=== PATIENT | male | born 1985 | race Caucasian/White ===

== ENCOUNTER 2022-03-28 10:49 | Emergency (ER) | payer MEDICAID, SELFPAY ==
[2022-03-28 11:08] VITALS: BP 213/104; PULSE 63; RESP 14; O2SAT 100; BMI 27.1
[2022-03-28] MEDS: lidocaine 2% viscous 15 ML, aluminum-mag hydrox-simethicon 30 ML, sucralfate oral liq 1 GM PO (11:27)
[2022-03-28 11:28] LABS: Basophils % 0.2 %; Eosinophils % 0.2 %; Hematocrit 43.2 % (42.0-52.0); Hemoglobin 13.2 g/dL (11.7-16.6); Lymphocytes # 0.7 10^3/uL (0.8-4.8); Mean Corpuscular HGB Conc 30.6 g/dL (30.0-36.0); Mean Corpuscular Hemoglobin 21.5 pg (28.0-34.0); Mean Corpuscular Volume 70.2 fl (80-94); Mean Platelet Volume 10.1 fL (7.4-10.4); Monocytes # 0.5 10^3/uL (0.2-0.9); Monocytes % 4.5 %; Neutrophils # 9.06 10^3/uL (1.8-7.7); Neutrophils % 87.2 %; Nucleated Red Blood Cells % 0 %; Platelet Count 380 10^3/cmm (130-400); Red Blood Count 6.15 10^6/uL (4.1-5.3); Red Cell Distribution Width 16.8 % (12.1-15.1); White Blood Count 10.4 10^3/uL (4.0-10.0)
[2022-03-28] MEDS: sodium chloride 0.9% 1,000 ML 999 ML IV ×2 (11:43→12:41)
[2022-03-28] MEDS: haloperidol inj 5 mg/mL INJ 1 mL 2.5 MG IVP (11:44)
[2022-03-28 11:45] LABS: Lactate (Lactic Acid level) 2.3 mmol/L (0.5-2.2)
[2022-03-28 11:46] LABS: Albumin Level 5.3 g/dL (3.5-5.2); Alkaline Phosphatase 102 IU/L (40-130); Blood Urea Nitrogen 16 mg/dL (6-20); Calcium 10.9 mg/dL (8.5-10.5); Carbon Dioxide 23 mmol/L (22-29); Chloride 100 mmol/L (98-107); Creatinine Clr Calc Pharmacy 119.6682; Globulin 2.9 g/dL (1.3-4.6); Glomerular Filtration Rate 84.5 mL/min (90-130); Glucose 145 mg/dL (65-115); Lipase 14 U/L (13-60); Osmolality Calculated 288 mOsm/kg (285-295); Sodium 137 mmol/L (136-145); Total Bilirubin 0.4 mg/dL (0.15-1.2); Total Protein 8.2 g/dL (6.6-8.7)
[2022-03-28] MEDS: LORazepam 2 mg/mL INJ 1 mL IVP (11:47)
[2022-03-28 11:54] LABS: Alanine Aminotransferase 34 U/L (0-41); Anion Gap 19.4 (5-19); Aspartate Amino Transferase 34 U/L (0-40); Potassium 5.4 mmol/L (3.5-5.1)
[2022-03-28 12:05] VITALS: BP 172/93; PULSE 69; RESP 18; O2SAT 97
--- NOTE | 2022-03-28 12:08 | W.ED.ABDPA2 ---
HPI - Abdominal Pain General: Chief Complaint: Abdominal Pain Stated Complaint: Severe ABD Pains Time Seen by Provider: 03/28/22 11:15 Source: patient Mode of arrival: ambulatory Limitations: no limitations History of Present Illness: 37-year-old male presents emergency room complaining of epigastric and right left upper quadrant abdominal pain (in the nurses notes this is right he indicated left to me). He states he has had this for a number of years intermittently and seems more intense now he smokes marijuana heavily on a daily basis also drinks 6-12 beers per day. He denies drinking last evening. He has had hematochezia multiple times in the past but none recently has not had an evaluation for it. He denies any hematemesis or coffee-ground emesis no fever sweats or chills. He has been very nauseous and vomited multiple times. MD elicited complaint: abdominal pain Onset (ago): year(s) (Recent worsening) Pain Consistency: intermittent Location: Epigastric and LUQ Severity: moderate Quality: cramping Radiation: none Migration to: no migration Exacerbating factors: eating Relieving factors: nothing Associated Symptoms: Reports GI cramping, dyspepsia, loose stools, nausea, poor appetite and vomiting; Denies belching, bloating, change in bowel habits, change in stool character, chills, coffee ground emesis, constipation, diarrhea, dysuria, excessive flatus, fever(s), heartburn, hematochezia, hematuria, hematemesis, fecal incontinence, melena and syncope Review of Systems Const: Denies: fever(s) or chills ENMT: Denies: throat pain, ear or mastoid pain, nasal discharge or nasal congestion Card: Denies: chest pain or syncope Resp: Denies: dyspnea, productive cough or non-productive cough GI: Reports: abdominal pain, nausea, vomiting and GI cramping; Denies: hematemesis, coffee ground emesis, heartburn, diarrhea, constipation, bloating, belching, excessive flatus, fecal incontinence, change in bowel habits, change in stool character, hematochezia or melena : Denies: flank pain, difficulty urinating, dysuria, urinary frequency, urinary urgency or hematuria Skin/Breast: Denies: rash or pruritus Course Vital Signs: Vital signs: Vital Signs Pulse Rate 78 03/28/22 13:41 Respiratory Rate 18 03/28/22 13:41 Blood Pressure 170/89 03/28/22 13:41 Pulse Oximetry 99 03/28/22 13:41 MDM - Abdominal Pain Medical Decision Making Patient responded well to fluids Haldol and Ativan his nausea was markedly relieved. Discharge patient home discussed with him different things that can influence this including a regular use of marijuana over long periods of time as well as high-volume alcohol consumption. Encourage him to abstain discharged home with promethazine to use as needed and can add Ativan if promethazine is not improving things. Medical Records I reviewed the patient's medical records. Lab Data I reviewed the patient's lab results. : 03/28/22 11:22 03/28/22 11:22 Labs/Radiology: Laboratory Results WBC 10.4 10^3/uL (4.0-10.0) H 03/28/22 11:22 RBC 6.15 10^6/uL (4.1-5.3) H 03/28/22 11:22 Hgb 13.2 g/dL (11.7-16.6) 03/28/22 11:22 Hct 43.2 % (42.0-52.0) 03/28/22 11:22 MCV 70.2 fl (80-94) L 03/28/22 11:22 MCH 21.5 pg (28.0-34.0) L 03/28/22 11:22 MCHC 30.6 g/dL (30.0-36.0) 03/28/22 11:22 RDW 16.8 % (12.1-15.1) H 03/28/22 11:22 Plt Count 380 10^3/cmm (130-400) 03/28/22 11:22 MPV 10.1 fL (7.4-10.4) 03/28/22 11:22 Neut % (Auto) 87.2 % 03/28/22 11:22 Lymph % (Auto) 7.0 % 03/28/22 11:22 [place] % (Auto) 4.5 % 03/28/22 11:22 Eos % (Auto) 0.2 % 03/28/22 11:22 Baso % (Auto) 0.2 % 03/28/22 11:22 Neut # (Auto) 9.06 10^3/uL (1.8-7.7) H 03/28/22 11:22 Lymph # (Auto) 0.7 10^3/uL (0.8-4.8) L 03/28/22 11:22 [place]rick # (Auto) 0.5 10^3/uL (0.2-0.9) 03/28/22 11:22 Eos # (Auto) 0.0 10^3/uL (0.0-0.8) 03/28/22 11:22 Baso # (Auto) 0.0 10^3/uL (0.0-0.1) 03/28/22 11:22 Nucleated RBC % (auto) 0 % 03/28/22 11:22 Nucleated RBCs # 0.0 /100WBC 03/28/22 11:22 Sodium 137 mmol/L (136-145) 03/28/22 11:22 Potassium 5.4 mmol/L (3.5-5.1) H 03/28/22 11:22 Chloride 100 mmol/L (98-107) 03/28/22 11:22 Carbon Dioxide 23 mmol/L (22-29) 03/28/22 11:22 Anion Gap 19.4 (5-19) H 03/28/22 11:22 BUN 16 mg/dL (6-20) 03/28/22 11:22 Creatinine 1.0 mg/dL (0.7-1.2) 03/28/22 11:22 GFR Calculation 84.5 mL/min (90-130) L 03/28/22 11:22 Glucose 145 mg/dL (65-115) H 03/28/22 11:22 Calculated Osmolality 288 mOsm/kg (285-295) 03/28/22 11:22 Lactate 2.3 mmol/L (0.5-2.2) H 03/28/22 11:22 Calcium 10.9 mg/dL (8.5-10.5) H 03/28/22 11:22 Total Bilirubin 0.4 mg/dL (0.15-1.2) 03/28/22 11:22 AST 34 U/L (0-40) 03/28/22 11:22 ALT 34 U/L (0-41) 03/28/22 11:22 Alkaline Phosphatase 102 IU/L (40-130) 03/28/22 11:22 Total Protein 8.2 g/dL (6.6-8.7) 03/28/22 11:22 Albumin 5.3 g/dL (3.5-5.2) H 03/28/22 11:22 Globulin 2.9 g/dL (1.3-4.6) 03/28/22 11:22 Lipase 14 U/L (13-60) 03/28/22 11:22 Discharge Plan Discharge Patient Disposition: Home Clinical Impression: Dyspepsia, Cannabinoid hyperemesis syndrome Condition: Stable Prescriptions: New Protonix 40 mg tablet,delayed release (DR/EC) 40 mg PO DAILY Qty: 45 0RF Rx Instructions: 1 p.o. twice daily for 14 days then 1 p.o. daily promethazine 25 mg tablet 25 mg PO Q6H PRN (Reason: nausea and vomiting) Qty: 20 0RF Ativan 2 mg tablet 2 mg PO Q6H PRN (Reason: nausea and vomiting) Qty: 14 0RF Rx Instructions: Use if promethazine does not relieve symptoms Discharge Orders: Discharge ED (Routine); Ordered 03/28/22 Ordered By: Deniz Sanz Referrals: Tyshawn Beard, DO [Primary Care Provider] - Discharge Diet: Clear Liquid Discharge Activity: Increase activity as tolerated Patient Instructions: Opioid Safety Activity Restrictions/Additional Instructions: Clear liquid diet for 24 to 48 hours. Avoid alcohol and marijuana use. culture manager will call to set you up for an EGD. Pantoprazole twice daily for 14 days then once daily. Use promethazine for nausea and vomiting if that does not relieve symptoms after 1 or 2 doses then use Ativan. 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
[2022-03-28 13:41] VITALS: BP 170/89; PULSE 78; RESP 18; O2SAT 99
--- NOTE | 2022-03-30 11:54 | DCPLANNER ---
Addendum entered by Marva Graves 05/01/22 10:37: manager oncology was told that Patient is currently waiting for FA before scheduling an appointment. Patient is talking to FA counselors Original Note: manager oncology had message to schedule a follow up appointment for patient with general surgery. manager oncology sent patients information to the front office staff at general surgery. Patients information will be printed and reviewed. Clinic will call patient with appointment information.
== END 2022-03-28 13:38 | disposition home or self-care (01) ==
PROVIDERS: Emergency Medicine; Emergency Provider Family Medicine; PCP Electrodiagnostic Medicine
DX: R10.13 Epigastric pain (principal); R11.10 Vomiting, unspecified; F12.10 Cannabis abuse, uncomplicated
CPT/HCPCS: 80053; 83605; 83690; 85025; 96361; 96374; 96375; 99284; J1630; J2060; J7030

== ENCOUNTER 2022-08-14 15:14 | Emergency (ER) | payer MEDICAID, SELFPAY ==
[2022-08-14 15:23] VITALS: BP 145/81; PULSE 70; RESP 16; TEMP 36.8; O2SAT 99; BMI 24.4
--- NOTE | 2022-08-14 15:47 | XRR_ITS ---
PROCEDURE INFORMATION: Exam: XR Chest Exam date and time: 08/14/2022 4:09 PM Age: 37 years old Clinical indication: Pain; Angina pectoris; Additional info: Chest pain TECHNIQUE: Imaging protocol: Radiologic exam of the chest. Views: 1 view. COMPARISON: CR XR chest 1V [id number] 06/05/2016 8:37 PM FINDINGS: Lungs: Unremarkable. No consolidation. Pleural spaces: Unremarkable. No pleural effusion. No pneumothorax. Heart/Mediastinum: Unremarkable. No cardiomegaly. Bones/joints: Unremarkable. XR/XR chest 1V portable [id number] IMPRESSION: No acute findings.
--- NOTE | 2022-08-14 16:05 | PC.NURSE ---
pts states this morning pt woke up at baseline and went to take a shower and then roughly 20 minutes later pt became disoriented. reports was told by other family member that the house was messed up, tv and nightstand knocked out. reports pt has no memory of what happened. reports an unwitnessed fall today. pt c/o right sided headache. 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
--- NOTE | 2022-08-14 16:17 | CTR_ITS ---
PROCEDURE INFORMATION: Exam: CT Head Without Contrast Exam date and time: 08/14/2022 4:32 PM Age: 37 years old Clinical indication: Patient HX: Woke up this am disoriented, no recent trauma to head/neck; Additional info: YANCEY TECHNIQUE: Imaging protocol: Computed tomography of the head without contrast. Radiation optimization: All CT scans at this facility use at least one of these dose optimization techniques: automated exposure control; mA and/or kV adjustment per patient size (includes targeted exams where dose is matched to clinical indication); or iterative reconstruction. COMPARISON: No relevant prior studies available. RADIATION DOSE METRICS: Total DLP (mGy-cm): 1398 FINDINGS: Brain: Normal. No hemorrhage. Unremarkable white matter. No mass effect. Cerebral ventricles: No ventriculomegaly. Paranasal sinuses: Visualized sinuses are unremarkable. No fluid levels. Mastoid air cells: Visualized mastoid air cells are well aerated. Bones/joints: Unremarkable. No acute fracture. Soft tissues: Unremarkable. CT/CT head wo con* [id number] IMPRESSION: No acute intracranial abnormality.
--- NOTE | 2022-08-14 16:17 | CTR_ITS ---
PROCEDURE INFORMATION: Exam: CT Cervical Spine Without Contrast Exam date and time: 08/14/2022 4:32 PM Age: 37 years old Clinical indication: Prior surgery; Surgery date: 6+ months; Surgery type: Cervical fusion x15 yrs; Patient HX: Woke up this am disoriented, no recent trauma to head/neck; Additional info: Fall TECHNIQUE: Imaging protocol: Computed tomography of the cervical spine without contrast. Radiation optimization: All CT scans at this facility use at least one of these dose optimization techniques: automated exposure control; mA and/or kV adjustment per patient size (includes targeted exams where dose is matched to clinical indication); or iterative reconstruction. COMPARISON: CR XR chest 1V portable [id number] 08/14/2022 4:09 PM RADIATION DOSE METRICS: Total DLP (mGy-cm): 277.7 FINDINGS: Bones/joints: Anterior cervical discectomy and fusion changes seen in place at C4/5/6. C2-C3: No significant disc protrusion. No severe spinal canal stenosis. No significant neural foraminal narrowing. C3-C4: No significant disc protrusion. No severe spinal canal stenosis. No significant neural foraminal narrowing. C4-C5: No significant disc protrusion. No severe spinal canal stenosis. No significant neural foraminal narrowing. C5-C6: No significant disc protrusion. No severe spinal canal stenosis. No significant neural foraminal narrowing. C6-C7: No significant disc protrusion. No severe spinal canal stenosis. No significant neural foraminal narrowing. C7-T1: No significant disc protrusion. No severe spinal canal stenosis. No significant neural foraminal narrowing. Lungs: Lung apices are normal. Soft tissues: Unremarkable. CT/CT cervical spin wo con* [id number] IMPRESSION: Anterior cervical discectomy and fusion changes seen in place at C4/5/6.
--- NOTE | 2022-08-14 16:17 | ECG_ITS ---
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 Measurements Intervals [place] Rate: 64 P: 44 ND: 118 QRS: 57 QRSD: 98 T: 38 QT: 378 QTc: 391 Interpretive Statements SINUS RHYTHM WITH SHORT ND INTERVAL No previous ECG available for comparison Electronically Signed On 08-14-2022 16:19:44 CDT by Savi Francois M.D. [id number]
[2022-08-14 16:26] LABS: Ammonia 22 umol/L (16-60)
[2022-08-14 16:27] LABS: Lactate (Lactic Acid level) 1.8 mmol/L (0.5-2.2)
[2022-08-14 16:31] LABS: Alanine Aminotransferase 23 U/L (0-41); Albumin Level 4.7 g/dL (3.5-5.2); Alkaline Phosphatase 91 U/L (40-130); Aspartate Amino Transferase 22 U/L (0-40); Blood Urea Nitrogen 13 mg/dL (6-20); Calcium 9.5 mg/dL (8.5-10.5); Carbon Dioxide 24 mmol/L (22-29); Chloride 102 mmol/L (98-107); Glomerular Filtration Rate 84.5 mL/min (90-130); Glucose 126 mg/dL (65-115); Lipase 17 U/L (13-60); Osmolality Calculated 290 mOsm/kg (285-295); Sodium 139 mmol/L (136-145); Total Bilirubin 0.3 mg/dL (0.15-1.2); Total Protein 7.7 g/dL (6.6-8.7)
--- NOTE | 2022-08-14 16:31 | ED_ITS ---
HPI - Altered Mental Status General: Chief Complaint: Altered Mental Status Stated Complaint: disoreinted Time Seen by Provider: 08/14/22 16:06 Source: patient and EMS Mode of arrival: EMS Limitations: no limitations History of Present Illness: 37-year-old male who is a daily drinker he states that he had episode this morning of disorientation his states that he was confused he tore up the bathroom he does not remember any events from this morning. He states he believes in a fall he does have a contusion to his 41 is some slight headache and neck pain. Patient currently is at his baseline he is able answer all my questions appropriately has no confusion here. Associated symptoms: Deny depression Review of Systems Const: Denies: fever(s), chills, body aches or change in appetite Eyes: Denies: blurry vision or eye discomfort ENMT: Denies: throat pain or dental pain Card: Denies: chest pain Resp: Denies: dyspnea GI: Denies: abdominal pain, nausea, vomiting or diarrhea : Denies: dysuria Musc: Denies: neck pain or back pain Skin/Breast: Denies: rash Neuro: Reports: confusion Psych: Denies: depression Iaziah/Lymph: Denies: easy bruising All/Imm: Denies: urticaria PFSH ED PFSH: Medical History (Updated 08/14/22 @ 17:01 by Claire Sagastume MD) Hypertension Social History Smoking and tobacco status: smoker, details unknown Alcohol intake: current Alcohol intake frequency: 3 or more drinks per day Alcohol type: beer Counseling given: Yes Physical Exam Const: COMMON NORMALS: no acute distress, patient oriented x3 and healthy appearing HENMT: COMMON NORMALS: normocephalic; head/scalp not atraumatic (contusion to forehead) and not EAC's normal HEAD & SCALP: normocephalic; not atraumatic (contusion to forehead) EXTERNAL AUDITORY CANAL: EAC(s) not normal Eye: COMMON NORMALS: Equal, round and reactive pupils present and normal visual cowart by confrontation PUPIL: Yes Equal, round and reactive pupils present Neck/C-Spine: COMMON NORMALS: full ROM and supple Chest: COMMONS NORMALS: normal inspection of the chest and normal palpation of entire chest wall Resp: COMMON NORMALS: normal respiratory effort, No retractions, No use of accessory muscles and clear to auscultation bilaterally EFFORT & INSPECTION: Yes able to speak in complete sentences AUSCULTATION: clear to auscultation bilaterally Cardio: COMMON NORMALS: regular rate and regular rhythm RATE: regular rate RHYTHM: regular rhythm GI: COMMON NORMALS: Normal to inspection, nondistended, normoactive bowel sounds present Extremity: COMMON NORMALS: normal to inspection and full ROM Neuro: COMMON NORMALS: patient oriented x3 Psych: COMMON NORMALS: mental status grossly normal, Normal thought process present, cooperative and speech normal SPEECH: Yes normal speech THOUGHT PROCESS: Normal thought process present Skin: COMMON NORMALS: no rashes or lesions noted GENERAL SKIN EXAM: no rashes or lesions noted Course Vital Signs: Vital signs: Vital Signs Temperature 98.2 F 08/14/22 15:23 Pulse Rate 67 08/14/22 17:19 Respiratory Rate 16 08/14/22 17:19 Blood Pressure 137/81 08/14/22 17:19 Pulse Oximetry 100 08/14/22 17:19 Oxygen Delivery Me thod 08/14/22 15:23 MDM - Altered Mental Status Medical Decision Making Patient presents here with period of confusion this morning unsure what actually happened he is a daily drinker he had no witnessed seizure. He is lucid here he is at his baseline he has no altered mental status here blood work head CT are all normal he is stable for discharge at this time he is to follow-up his PCP in 2 to 4 days and return if worsening he understands agrees to plan. Lab Data : 08/14/22 16:00 08/14/22 15:47 Radiology Impressions Chest X-Ray 08/14/22 15:47 IMPRESSION: No acute findings. Cervical Spine CT 08/14/22 16:17 IMPRESSION: Anterior cervical discectomy and fusion changes seen in place at C4/5/6. Head CT 08/14/22 16:17 IMPRESSION: No acute intracranial abnormality. Laboratory Results WBC 13.9 10^3/uL (4.0-10.0) H 08/14/22 16:00 RBC 5.36 10^6/uL (4.1-5.3) H 08/14/22 16:00 Hgb 11.5 g/dL (11.7-16.6) L 08/14/22 16:00 Hct 38.1 % (42.0-52.0) L 08/14/22 16:00 MCV 71.1 fl (80-94) L 08/14/22 16:00 MCH 21.5 pg (28.0-34.0) L 08/14/22 16:00 MCHC 30.2 g/dL (30.0-36.0) 08/14/22 16:00 RDW 17.7 % (12.1-15.1) H 08/14/22 16:00 Plt Count 352 10^3/cmm (130-400) 08/14/22 16:00 MPV 10.0 fL (7.4-10.4) 08/14/22 16:00 Neut % (Auto) 92.1 % 08/14/22 16:00 Lymph % (Auto) 2.7 % 08/14/22 16:00 [place] % (Auto) 4.3 % 08/14/22 16:00 Eos % (Auto) 0.0 % 08/14/22 16:00 Baso % (Auto) 0.2 % 08/14/22 16:00 Neut # (Auto) 12.75 10^3/uL (1.8-7.7) H 08/14/22 16:00 Lymph # (Auto) 0.4 10^3/uL (0.8-4.8) L 08/14/22 16:00 [place] # (Auto) 0.6 10^3/uL (0.2-0.9) 08/14/22 16:00 Eos # (Auto) 0.0 10^3/uL (0.0-0.8) 08/14/22 16:00 Baso # (Auto) 0.0 10^3/uL (0.0-0.1) 08/14/22 16:00 Nucleated RBC % (auto) 0 % 08/14/22 16:00 Nucleated RBCs # 0.0 /100WBC 08/14/22 16:00 Sodium 139 mmol/L (136-145) 08/14/22 15:47 Potassium 4.3 mmol/L (3.5-5.1) 08/14/22 15:47 Chloride 102 mmol/L (98-107) 08/14/22 15:47 Carbon Dioxide 24 mmol/L (22-29) 08/14/22 15:47 Anion Gap 17.3 (5-19) 08/14/22 15:47 BUN 13 mg/dL (6-20) 08/14/22 15:47 Creatinine 1.0 mg/dL (0.7-1.2) 08/14/22 15:47 GFR Calculation 84.5 mL/min (90-130) L 08/14/22 15:47 Glucose 126 mg/dL (65-115) H 08/14/22 15:47 Calculated Osmolality 290 mOsm/kg (285-295) 08/14/22 15:47 Lactate 1.8 mmol/L (0.5-2.2) 08/14/22 15:48 Calcium 9.5 mg/dL (8.5-10.5) 08/14/22 15:47 Total Bilirubin 0.3 mg/dL (0.15-1.2) 08/14/22 15:47 AST 22 U/L (0-40) 08/14/22 15:47 ALT 23 U/L (0-41) 08/14/22 15:47 Alkaline Phosphatase 91 U/L (40-130) 08/14/22 15:47 Ammonia 22 umol/L (16-60) 08/14/22 15:48 Total Protein 7.7 g/dL (6.6-8.7) 08/14/22 15:47 Albumin 4.7 g/dL (3.5-5.2) 08/14/22 15:47 Globulin 3.0 g/dL (1.3-4.6) 08/14/22 15:47 Lipase 17 U/L (13-60) 08/14/22 15:47 EKG Data EKG 1: I personally reviewed and interpreted this EKG as follows: EKG interpretation date: 08/14/22 EKG interpretation time: 16:17 Interpretation: nsr hr [address] or t wave abnormalities qrs 98 qtc 387 Discharge Plan Discharge Patient Disposition: Home Clinical Impression: Altered mental status, Closed head injury Condition: Stable Prescriptions: No Action clonidine HCl 0.1 mg tablet 0.1 mg PO Q6H PRN (Reason: alcohol withdrawal) Qty: 30 3RF atenolol 25 mg tablet 25 mg PO BID Qty: 60 3RF pantoprazole 40 mg tablet,delayed release (DR/EC) 40 mg PO DAILY Qty: 30 3RF Discharge Orders: Discharge ED (Routine); Ordered 08/14/22 Ordered By: Claire Sagastume Referrals: Tyhsawn Beard DO [Primary Care Provider] - Discharge Diet: Advance as tolerated Discharge Activity: Resume usual activity Patient Instructions: Confusion, Head Injury (ED) Coding Level of Care Code ED Impregnating Machine Operator for Chg Fwd Exam Comprehensive
[2022-08-14 16:33] LABS: Basophils % 0.2 %; Hematocrit 38.1 % (42.0-52.0); Hemoglobin 11.5 g/dL (11.7-16.6); Lymphocytes # 0.4 10^3/uL (0.8-4.8); Lymphocytes % 2.7 %; Mean Corpuscular HGB Conc 30.2 g/dL (30.0-36.0); Mean Corpuscular Hemoglobin 21.5 pg (28.0-34.0); Mean Corpuscular Volume 71.1 fl (80-94); Monocytes # 0.6 10^3/uL (0.2-0.9); Monocytes % 4.3 %; Neutrophils # 12.75 10^3/uL (1.8-7.7); Neutrophils % 92.1 %; Nucleated Red Blood Cells % 0 %; Platelet Count 352 10^3/cmm (130-400); Red Blood Count 5.36 10^6/uL (4.1-5.3); Red Cell Distribution Width 17.7 % (12.1-15.1); White Blood Count 13.9 10^3/uL (4.0-10.0)
[2022-08-14 16:34] LABS: Anion Gap 17.3 (5-19); Potassium 4.3 mmol/L (3.5-5.1)
[2022-08-14 17:19] VITALS: BP 137/81; PULSE 67; RESP 16; O2SAT 100
== END 2022-08-14 17:21 | disposition home or self-care (01) ==
PROVIDERS: Family Medicine; Emergency Provider Emergency Medicine; PCP Electrodiagnostic Medicine
DX: R41.82 Altered mental status, unspecified (principal); S09.90XA Unspecified injury of head, initial encounter; X58.XXXA Exposure to other specified factors, initial encounter; I10 Essential (primary) hypertension
CPT/HCPCS: 70450; 71045; 72125; 80053; 82140; 83605; 83690; 85025; 93005; 99284

== ENCOUNTER 2022-10-22 01:59 | Inpatient (IN) | payer MEDICAID, SELFPAY ==
[2022-10-22] VITALS (45 sets, daily range): BP systolic 98–246; BP diastolic 51–149; PULSE 56–158; RESP 16–22; TEMP 36–37.3; O2SAT 87–100; BMI 23.7
--- NOTE | 2022-10-22 02:06 | XRR_ITS ---
PROCEDURE INFORMATION: Exam: XR Chest Exam date and time: 10/22/2022 2:10 AM Age: 37 years old Clinical indication: Device placement; Ett placement (vent status); Patient HX: Check S/P intubation; Additional info: Seizure TECHNIQUE: Imaging protocol: Radiologic exam of the chest. Views: 1 view. COMPARISON: CR XR chest 1V portable [id number] 08/14/2022 4:09 PM FINDINGS: Tubes, catheters and devices: Endotracheal tube terminates approximately 6.3 cm above the lamberto. Lungs: Unremarkable. No consolidation. Pleural spaces: Unremarkable. No pleural effusion. No pneumothorax. Heart/Mediastinum: Unremarkable. No cardiomegaly. Bones/joints: ACDF hardware in the cervical spine. XR/XR chest 1V portable [id number] IMPRESSION: Endotracheal tube terminates approximately 6.3 cm above the lamberto.
--- NOTE | 2022-10-22 02:06 | CTR_ITS ---
PROCEDURE INFORMATION: Exam: CT Head Without Contrast Exam date and time: 10/22/2022 2:48 AM Age: 37 years old Clinical indication: Condition or disease; Convulsions or seizures; Patient HX: EMS called out for witnessed seizure activity. Intubated in the field. Patient very diaphoretic upon arrival with intial BP of 240/140. Per family PT daily drinker who stopped last Wednesday due to C/O severe abd pain. ; Additional info: Seiure TECHNIQUE: Imaging protocol: Computed tomography of the head without contrast. Radiation optimization: All CT scans at this facility use at least one of these dose optimization techniques: automated exposure control; mA and/or kV adjustment per patient size (includes targeted exams where dose is matched to clinical indication); or iterative reconstruction. COMPARISON: CT head wo con* [id number] 08/14/2022 4:32 PM RADIATION DOSE METRICS: Total DLP (mGy-cm): 1192.08 FINDINGS: Brain: No acute intracranial hemorrhage or mass effect. No definite acute infarct by CT. MRI could be more sensitive/specific for detection, as clinically directed. Cerebral ventricles: Ventricle size is normal for age. Paranasal sinuses: Included paranasal sinuses are essentially clear. Mastoid air cells: No significant acute finding. Bones/joints: No definite acute skull fracture. Soft tissues: No significant acute finding. CT/CT head wo con* [id number] IMPRESSION: 1. No acute intracranial hemorrhage or mass effect. 2. No definite acute infarct by CT, see above. 3. Other findings discussed above.
--- NOTE | 2022-10-22 02:08 | ECG_ITS ---
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 Measurements Intervals [place] Rate: 153 P: 46 PA: 90 QRS: 68 QRSD: 98 T: 61 QT: 318 QTc: 507 Interpretive Statements SINUS TACHYCARDIA WITH SHORT PA INTERVAL ST DEVIATION AND MARKED T-WAVE ABNORMALITY, CONSIDER INFERIOR ISCHEMIA Compared to ECG 08/14/2022 16:17:51 T-wave abnormality now present Possible ischemia now present Sinus rhythm no longer present Electronically Signed On 10-22-2022 19:02:24 BEAUTY SCHOOL INSTRUCTOR by Savi Francois M.D. [id number]
[2022-10-22 02:11] LABS: Basophils % 0.2 %; Eosinophils % 0.1 %; Hematocrit 46.2 % (42.0-52.0); Hemoglobin 13.6 g/dL (11.7-16.6); Lymphocytes # 1.2 10^3/uL (0.8-4.8); Lymphocytes % 5.4 %; Mean Corpuscular HGB Conc 29.4 g/dL (30.0-36.0); Mean Corpuscular Hemoglobin 21.1 pg (28.0-34.0); Mean Corpuscular Volume 71.6 fl (80-94); Mean Platelet Volume 10.1 fL (7.4-10.4); Monocytes # 1.2 10^3/uL (0.2-0.9); Monocytes % 5.3 %; Neutrophils # 19.23 10^3/uL (1.8-7.7); Neutrophils % 86.5 %; Nucleated Red Blood Cells % 0 %; Platelet Count 641 10^3/cmm (130-400); Red Blood Count 6.45 10^6/uL (4.1-5.3); Red Cell Distribution Width 18.3 % (12.1-15.1); White Blood Count 22.3 10^3/uL (4.0-10.0)
--- NOTE | 2022-10-22 02:11 | W.ED.SEIZURE ---
HPI - Seizure General: Chief Complaint: Seizure Stated Complaint: SEIZURE Time Seen by Provider: 10/22/22 02:03 Source: EMS Mode of arrival: EMS Limitations: altered mental status History of Present Illness: HPI Narrative: 37-year-old male who has a history of alcoholism per family patient had his last drink 2 to 3 days ago. Patient had a seizure tonight at home EMS was called EMS states that when they arrived patient was combative they gave him Ativan he continued to be combative so they intubated him due to him being altered and combative. He had no known head injury. Patient is intubated at this time unresponsive due to meds Review of Systems General: Reports: ROS unobtainable due to mental status PFSH ED PFSH: Medical History Hypertension Social History Smoking and tobacco status: smoker, details unknown Alcohol intake: current Alcohol intake frequency: 3 or more drinks per day Alcohol type: beer Counseling given: Yes Physical Exam Const: COMMON NORMALS: negative for patient oriented x3 GENERAL APPEARANCE: in distress HENMT: COMMON NORMALS: normocephalic and atraumatic HEAD & SCALP: normocephalic and atraumatic Eye: COMMON NORMALS: conjunctivae normal CONJUNCTIVA: Yes conjunctivae normal Neck/C-Spine: COMMON NORMALS: full ROM and supple Chest: COMMONS NORMALS: normal inspection of the chest and normal palpation of entire chest wall Resp: OTHER: intubated breath sounds equal bilaterally Cardio: COMMON NORMALS: regular rhythm and No murmurs present (Cardio) RATE: tachycardic RHYTHM: regular rhythm GI: COMMON NORMALS: Normal to inspection, nondistended, normoactive bowel sounds present, Soft to palpation, non-tender and no masses PALPATION: Yes Soft to palpation Extremity: COMMON NORMALS: normal to inspection and full ROM Neuro: COMMON NORMALS: moves all extremities and no focal motor deficits; negative for patient oriented x3 Psych: COMMON NORMALS: negative for mental status grossly normal Skin: COMMON NORMALS: no rashes or lesions noted and no wounds GENERAL SKIN EXAM: no rashes or lesions noted Course Vital Signs: Vital signs: Vital Signs Temperature 99.2 F 10/22/22 02:30 Pulse Rate 95 10/22/22 04:30 Respiratory Rate 17 10/22/22 04:30 Blood Pressure 117/87 10/22/22 04:30 Pulse Oximetry 96 10/22/22 04:30 Oxygen Delivery Me thod 10/22/22 03:02 Fraction of Inspir ed Oxygen 65 10/22/22 03:02 MDM - Seizure MDM Narrative Medical decision making narrative: Patient presents here with seizure likely alcohol withdrawal seizure patient was combative in the field and intubated by EMS before arrival patient's been stable here CT head is normal I spoke to the hospitalist will admit to the ICU at this time Lab Data 10/22/22 02:04 10/22/22 02:04 Labs: Radiology Impressions Head CT 10/22/22 02:06 IMPRESSION: 1. No acute intracranial hemorrhage or mass effect. 2. No definite acute infarct by CT, see above. 3. Other findings discussed above. Laboratory Results WBC 22.3 10^3/uL (4.0-10.0) H 10/22/22 02:04 RBC 6.45 10^6/uL (4.1-5.3) H 10/22/22 02:04 Hgb 13.6 g/dL (11.7-16.6) 10/22/22 02:04 Hct 46.2 % (42.0-52.0) 10/22/22 02:04 MCV 71.6 fl (80-94) L 10/22/22 02:04 MCH 21.1 pg (28.0-34.0) L 10/22/22 02:04 MCHC 29.4 g/dL (30.0-36.0) L 10/22/22 02:04 RDW 18.3 % (12.1-15.1) H 10/22/22 02:04 Plt Count 641 10^3/cmm (130-400) H 10/22/22 02:04 MPV 10.1 fL (7.4-10.4) 10/22/22 02:04 Neut % (Auto) 86.5 % 10/22/22 02:04 Lymph % (Auto) 5.4 % 10/22/22 02:04 Isabella % (Auto) 5.3 % 10/22/22 02:04 Eos % (Auto) 0.1 % 10/22/22 02:04 Baso % (Auto) 0.2 % 10/22/22 02:04 Neut # (Auto) 19.23 10^3/uL (1.8-7.7) H 10/22/22 02:04 Lymph # (Auto) 1.2 10^3/uL (0.8-4.8) 10/22/22 02:04 Isabella # (Auto) 1.2 10^3/uL (0.2-0.9) H 10/22/22 02:04 Eos # (Auto) 0.0 10^3/uL (0.0-0.8) 10/22/22 02:04 Baso # (Auto) 0.0 10^3/uL (0.0-0.1) 10/22/22 02:04 Nucleated RBC % (auto) 0 % 10/22/22 02:04 Nucleated RBCs # 0.0 /100WBC 10/22/22 02:04 Specimen Type Arterial 10/22/22 02:34 Sample Site Brachial, right 10/22/22 02:34 ABG pH 7.14 (7.35-7.45) L* 10/22/22 02:34 ABG pCO2 55.3 mmHg (35-45) H 10/22/22 02:34 ABG pO2 197.0 mmHg (80.0-100.0) H 10/22/22 02:34 ABG HCO3 18.8 mmol/L (22-26) L 10/22/22 02:34 ABG O2 Saturation 99.3 10/22/22 02:34 ABG Base Excess -10.5 mmol/L (-2.0-2.0) L 10/22/22 02:34 Roderick Test N/a 10/22/22 02:34 A-a O2 Gradient 26.5 mmHg (5-10) H 10/22/22 02:34 Hematocrit 41.4 % (42-52) L 10/22/22 02:34 Hgb O2 Saturation 97.8 % (95-100) 10/22/22 02:34 Carboxyhemoglobin 0.7 %THgb (0.4-20.1) 10/22/22 02:34 Methemoglobin 0.8 % (0.4-1.5) 10/22/22 02:34 Total Hemoglobin 13.5 g/dL (14-18) L 10/22/22 02:34 Sodium 138.0 mmol/L (131-143) 10/22/22 02:34 Potassium 4.1 mmol/L (3.5-5.0) 10/22/22 02:34 Glucose 317.0 mg/dL (70-115) H 10/22/22 02:34 Ionized Calcium 1.3 mmol/L (1.1-1.4) 10/22/22 02:34 O2 Delivery Device Vent 10/22/22 02:34 FiO2 65.0 % 10/22/22 02:34 Tidal Volume 0.50 10/22/22 02:34 PEEP 8.0 cmH20 10/22/22 02:34 Filer Helper ID Jakob 10/22/22 02:34 Sodium 136 mmol/L (136-145) 10/22/22 02:04 Potassium 4.2 mmol/L (3.5-5.1) 10/22/22 02:04 Chloride 94 mmol/L (98-107) L 10/22/22 02:04 Carbon Dioxide 17 mmol/L (22-29) L 10/22/22 02:04 Anion Gap 29.2 (5-19) H 10/22/22 02:04 BUN 25 mg/dL (6-20) H 10/22/22 02:04 Creatinine 1.7 mg/dL (0.7-1.2) H 10/22/22 02:04 GFR Calculation 45.8 mL/min (90-130) L 10/22/22 02:04 Glucose 180 mg/dL (65-115) H 10/22/22 02:04 Calculated Osmolality 291 mOsm/kg (285-295) 10/22/22 02:04 Calcium 11.2 mg/dL (8.5-10.5) H 10/22/22 02:04 Total Bilirubin 0.3 mg/dL (0.15-1.2) 10/22/22 02:04 AST 16 U/L (0-40) 10/22/22 02:04 ALT 28 U/L (0-41) 10/22/22 02:04 Alkaline Phosphatase 107 U/L (40-130) 10/22/22 02:04 Total Protein 9.2 g/dL (6.6-8.7) H 10/22/22 02:04 Albumin 5.5 g/dL (3.5-5.2) H 10/22/22 02:04 Globulin 3.7 g/dL (1.3-4.6) 10/22/22 02:04 Salicylates < 0.3 mg/dL (3-10) L 10/22/22 02:04 Acetaminophen < 5.0 ug/mL (10-30) L 10/22/22 02:04 Ethyl Alcohol < 10 mg/dL (0-10) 10/22/22 02:04 EKG Data EKG 1: Attestation: I personally reviewed and interpreted this EKG as follows: EKG interpretation date: 10/22/22 EKG interpretation time: 02:08 Interpretation: sinus tach hr [address] or t wave abnormalities qrs 98 qtc 404 Critical Care Time Critical Care Time: Critical Care Time: Yes Total Critical Care Time: 50 Attestation: The high probability of a clinically significant, sudden or life threatening deterioration of the patient's neuro system(s) required my full and direct attention, intervention and personal management. The critical care time is as shown. This time is in addition to time spent performing any reported procedures but includes the following: [x] Data and vital sign review and interpretation [x] Patient assessment, examination and intervention [x] Documentation [x] Medication orders and management Discharge Plan Discharge Condition: Stable Prescriptions: No Action clonidine HCl 0.1 mg tablet 0.1 mg PO Q6H PRN (Reason: alcohol withdrawal) Qty: 30 3RF atenolol 25 mg tablet 25 mg PO BID Qty: 60 3RF pantoprazole 40 mg tablet,delayed release (DR/EC) 40 mg PO DAILY Qty: 30 3RF Referrals: Tyshawn Beard DO [Staff Physician] - Coding Level of Care Code ED Grinder Set Up Operator Internal for Chg Fwd Exam Comprehensive
[2022-10-22] MEDS: propofol 1,000 MG/100 ML INJ 9.8 MG IV (02:20)
[2022-10-22 02:35] LABS: Alanine Aminotransferase 28 U/L (0-41); Albumin Level 5.5 g/dL (3.5-5.2); Alkaline Phosphatase 107 U/L (40-130); Anion Gap 29.2 (5-19); Aspartate Amino Transferase 16 U/L (0-40); Blood Urea Nitrogen 25 mg/dL (6-20); Calcium 11.2 mg/dL (8.5-10.5); Carbon Dioxide 17 mmol/L (22-29); Chloride 94 mmol/L (98-107); Globulin 3.7 g/dL (1.3-4.6); Glomerular Filtration Rate 45.8 mL/min (90-130); Glucose 180 mg/dL (65-115); Osmolality Calculated 291 mOsm/kg (285-295); Potassium 4.2 mmol/L (3.5-5.1); Sodium 136 mmol/L (136-145); Total Bilirubin 0.3 mg/dL (0.15-1.2); Total Protein 9.2 g/dL (6.6-8.7)
[2022-10-22 02:37] LABS: ABG PCO2 55.3 mmHg (35-45); Alveolar-Arterial Oxygen Gradi 26.5 mmHg (5-10); Arterial Blood Gas Hematocrit 41.4 % (42-52); Base Excess ABG -10.5 mmol/L (-2.0-2.0); Blood Gas Operator Identificat JB; Blood Gas Sample Site Brachial, right; Blood Gas Sample Type Arterial; Carboxyhemoglobin 0.7 %THgb (0.4-20.1); HCO3 ABG 18.8 mmol/L (22-26); HGB O2 Sat 97.8 % (95-100); Ionized Calcium Level - ABG 1.3 mmol/L (1.1-1.4); Methemoglobin 0.8 % (0.4-1.5); Oxygen Device VENT; Oxygen Saturation ABG 99.3; Potassium Level - ABG 4.1 mmol/L (3.5-5.0); Total Hemoglobin 13.5 g/dL (14-18)
[2022-10-22 02:38] LABS: ABG PH Result 7.14 (7.35-7.45)
[2022-10-22 02:38] LABS: Acetaminophen < 5.0 ug/mL (10-30); Alcohol Level < 10 mg/dL (0-10); Salicylate < 0.3 mg/dL (3-10)
--- NOTE | 2022-10-22 02:54 | CTR_ITS ---
PROCEDURE INFORMATION: Exam: CT Abdomen And Pelvis Without Contrast Exam date and time: 10/22/2022 2:58 AM Age: 37 years old Clinical indication: Abdominal pain; Generalized; Patient HX: EMS called out for witnessed seizure activity. Intubated in the field. Patient very diaphoretic upon arrival with intial BP of 240/140. Per family PT daily drinker who stopped last Wednesday due to C/O severe abd pain. TECHNIQUE: Imaging protocol: Computed tomography of the abdomen and pelvis without contrast. Radiation optimization: All CT scans at this facility use at least one of these dose optimization techniques: automated exposure control; mA and/or kV adjustment per patient size (includes targeted exams where dose is matched to clinical indication); or iterative reconstruction. COMPARISON: US gall bladder [id number] 06/05/2016 9:16 PM RADIATION DOSE METRICS: Total DLP (mGy-cm): 652.55 FINDINGS: Liver: Normal. No mass. Gallbladder and bile ducts: Normal. No calcified stones. No ductal dilation. Pancreas: Normal. No ductal dilation. Spleen: Normal. No splenomegaly. Adrenal glands: Normal. No mass. Kidneys and ureters: Normal. No hydronephrosis. Stomach and bowel: Unremarkable. No obstruction. No mucosal thickening. Appendix: No evidence of appendicitis. Intraperitoneal space: Unremarkable. No free air. No significant fluid collection. Vasculature: Unremarkable. No abdominal aortic aneurysm. Lymph nodes: Unremarkable. No enlarged lymph nodes. Urinary bladder: Smith catheter in the bladder. Reproductive: Unremarkable as visualized. Bones/joints: Unremarkable. No acute fracture. Soft tissues: Unremarkable. CT/CT abdomen pelvis con [id number] IMPRESSION: No acute findings.
[2022-10-22] MEDS: labetalol 5 mg/mL SDV 20mL 10 MG IVP (03:02)
--- NOTE | 2022-10-22 03:34 | XRR_ITS ---
PROCEDURE INFORMATION: Exam: XR Chest Exam date and time: 10/22/2022 3:38 AM Age: 37 years old Clinical indication: Device placement; Ett placement (vent status); Patient HX: Check S/P adjustment of et tube. ; Additional info: SOB TECHNIQUE: Imaging protocol: Radiologic exam of the chest. Views: 1 view. COMPARISON: CR (CHEST, ) 10/22/2022 2:10 AM FINDINGS: Tubes, catheters and devices: ET tube present, tip about 5 cm above the lamberto. The tube appears to have been advanced about 1.5 cm in the interval. Lungs: No CHF/pulmonary edema. Suspect minimal right lower lung opacity, likely atelectasis. Pneumonitis not excluded, please correlate clinically. Visible lungs otherwise appear essentially clear. Pleural spaces: No visible pneumothorax. No definite pleural fluid. Heart/Mediastinum: Heart size is within normal limits. Bones/joints: No significant acute finding. XR/XR chest 1V portable [id number] IMPRESSION: 1. ET tube placement as above. 2. Suspect minimal right lower lung opacity, see above discussion. 3. Other findings discussed above.
--- NOTE | 2022-10-22 04:45 | P.HP_ITS ---
Providers/Chief Complaint Chief Complaint: SEIZURE History of Present Illness Pritesh Holbrook is a 37 year old male with history of alcohol abuse, stopped drinking roughly 3 days ago, was intubated for recurrent seizures, RSI was done by the EMS, chest x-ray showing possible aspiration pneumonia, endotracheal tube was readjusted. Leukocytosis noted. Metabolic acidosis noted. I have reques fidencio a lactic acid. MEHUL. CT abdomen pelvis unremarkable. ET unremarkable. He drinks 6-12 beers a day, also has history of smoking marijuana, alcohol- related gastritis, he was seen by Dr. Boston in June for hypertension, hematochezia Of note, his mother is in the ICU intubated for seizures, could not be with him at bedside because she has 6 kids to take care of at home I have requested septic bolus, lactic acid, D-dimer, I had to go up on his fentanyl patient was getting agitated he was try to get out of bed while getting fentanyl 100 mics and propofol 30 Review of Systems General: Reports: ROS unobtainable due to endotracheal tube Medications/Allergies Home Medications Medication Instructions Recorded Confirmed Last Taken Type atenolol 25 mg tablet 25 mg PO BID #60 tabs 07/21/22 08/14/22 08/13/22 Rx clonidine HCl 0.1 mg tablet 0.1 mg PO Q6H PRN alcohol 07/21/22 08/14/22 Unknown Rx withdrawal #30 tabs pantoprazole 40 mg tablet,delayed 40 mg PO DAILY #30 tabs 07/21/22 08/14/22 08/13/22 Rx release Allergies Allergy/AdvReac Type Severity Reaction Status Date / Time No Known Allergies Allergy Verified 10/22/22 02:13 PFSH Acute PFSH: Medical History Gastritis Hematochezia Hypertension Surgical History No pertinent past surgical history Family History Denies family history of CAD (coronary artery disease) Social History Smoking and tobacco status: smoker, details unknown Alcohol intake: current Alcohol intake frequency: 3 or more drinks per day Alcohol type: beer Counseling given: Yes Vitals/I&O/Wt Last Vital Signs Temp 99.2 F 10/22/22 02:30 Pulse 95 10/22/22 04:30 Resp 17 10/22/22 04:30 BP 117/87 10/22/22 04:30 Pulse Ox 96 10/22/22 04:30 O2 Del Method 10/22/22 03:02 FiO2 65 10/22/22 03:02 10/21/22 10/21/22 10/22/22 14:59 22:59 06:59 Intake Total 6.533 / 6.533 Balance 6.533 / 6.533 Weight last 48 hrs Weight 81.647 kg Physical Exam Narrative: Patient is intubated and sedated Smith catheter in place Young male Hemodynamically stable Neuro exam limited Abdomen soft Bilateral assisted breath sounds Patient is agitated Trying to get out of bed Urinary Catheter Management: Smith: Cath Placed During This Visit: yes Urinary Catheter Date of Insertion: 10/22/22 Urinary Catheter Time of Insertion: 02:15 Data 10/22/22 02:04 10/22/22 02:04 A&P Assessment and plan (1) Hypertension: (2) Alcohol use: Plan Recurrent seizures related to alcohol withdrawal RSI was done by the EMS Patient has severe metabolic acidosis Check lactic acid I will give him bicarb until 10 AM Check repeat ABG within few hours Patient is intubated and sedated Aspiration pneumonia Afebrile I will start him on Zosyn Sepsis related to aspiration pneumonia Criteria met with tachypnea, tachycardia metabolic acidosis, leukocytosis, will give him septic bolus ? Sputum and blood culture Full code N.p.o. D5 normal saline for now Weaning trial, extubate later today versus tomorrow Hematochezia, gastritis likely alcohol-related continue Protonix 40 mg IV twice daily DVT prophylaxis with heparin MEHUL likely related to dehydration, requested drug screen and UA Sisters works at[employer] department, mother is in the ICU intubated for seizures Attestations 2 Medical Necessity Statement*: Anticipating more than 2 midnights Time Spent in Patient Care: 40 Coding Level of Care Code Acute Medical Apparatus Model Maker for g Fwd Diagnoses Hypertension I10 Alcohol use Z72.89
--- NOTE | 2022-10-22 05:02 | ECG_ITS ---
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 Measurements Intervals [place] Rate: 91 P: 46 SD: 126 QRS: 76 QRSD: 90 T: 59 QT: 342 QTc: 421 Interpretive Statements SINUS RHYTHM SEPTAL MYOCARDIAL INFARCTION , OF INDETERMINATE AGE [40+ ms Q WAVE IN V1/V2] Compared to ECG 08/14/2022 16:17:51 Myocardial infarct finding now present Short SD interval no longer present Electronically Signed On 10-22-2022 19:01:47 DRILL SETUP OPERATOR by Savi Francois M.D. [id number]
[2022-10-22] MEDS: sodium chloride 0.9% 2,449.41 ML 2449.41 ML IV (05:35)
[2022-10-22 06:04] LABS: Lactate (Lactic Acid level) 2.1 mmol/L (0.5-2.2)
[2022-10-22 06:13] LABS: Troponin(5th) Baseline 192 ng/L (0-15)
--- NOTE | 2022-10-22 06:43 | ECG_ITS ---
[facility] Test Date: 2022-10-22 Pat Name: Pritesh Holbrook Department: Room: ICU10 Gender: Male Registered Appraiser: : 1985 Requested By: Angel Luis Flannery Order Number: [id number] Gabbie MD: Savi Francois M.D. Measurements Intervals [place] Rate: 101 P: 61 [place]: 148 QRS: 43 QRSD: 90 T: 48 QT: 327 QTc: 424 Interpretive Statements SINUS TACHYCARDIA POSSIBLE LEFT ATRIAL ENLARGEMENT [-0.1mV P-WAVE IN V1/V2] SEPTAL MYOCARDIAL INFARCTION , OF INDETERMINATE AGE [40+ ms Q WAVE IN V1/V2] Compared to ECG 10/22/2022 05:02:13 Sinus rhythm no longer present Myocardial infarct finding still present Electronically Signed On 10-22-2022 19:12:42 CANDY ROLLING MACHINE OPERATOR by Savi Francois M.D. [email or web address]/[id number]
--- NOTE | 2022-10-22 06:57 | USCV_ITS ---
Pritesh Holbrook Age: 37 Gender: M : 1985 Exam Date: 10/22/2022 07:59 Ordering Phys: Angel Luis Flannery MD Technologist: Tal Goff Exam Location: [facility] [place] Indication: nstemi BP: 113 / 71 HR: 71 Rhythm: Sinus Technical Quality: Adequate MEASUREMENTS (Male / Female) Normal Values 2D ECHO LV Diastolic Diameter PLAX 4.1 cm 4.2 - 5.9 / 3.9 - 5.3 cm LV Systolic Diameter PLAX 2.2 cm IVS Diastolic Thickness 1.4 cm 0.6 - 1.0 / 0.6 - 0.9 cm IVS Systolic Thickness 1.4 cm LVPW Diastolic Thickness 1.3 cm 0.6 - 1.0 / 0.6 - 0.9 cm LVPW Systolic Thickness 1.4 cm LVOT Diameter 2.1 cm LV Ejection Fraction 2D Teich 77.4 % LV Ejection Fraction MOD 2C 56.9 % LV Ejection Fraction 2C AL 58.2 % LA Diameter 3.5 cm LA Width 3.3 cm IVC Diameter 1.9 cm M-MODE Aortic Annulus Diameter 3.0 cm LA Ao Ratio MM 1.3 MV E Point Septal Separation 1.1 cm DOPPLER AV Peak Velocity 126.0 cm/s LVOT Peak Velocity 93.0 cm/s AV Area Cont Eq vti 2.7 cm squared AV Area Cont Eq pk 2.5 cm squared MV Area PHT 5.0 cm squared Mitral E to A Ratio 1.4 MV E' Velocity 40.5 cm/s Mitral E to MV E' Ratio 7.5 Mitral E to LV E' Lateral Ratio 5.9 Mitral E to LV E' Septal Ratio 10.2 TR Peak Velocity 210.7 cm/s TR Peak Gradient 17.8 mmHg TV Peak E Velocity 57.0 cm/s Right Atrial Pressure 3.0 mmHg Pulmonary Artery Systolic Pressu 20.8 mmHg RV Acceleration Time 0.1 s FINDINGS Left Ventricle Normal left ventricular size, systolic function and wall thickness, with no regional wall motion abnormalities. Left ventricular ejection fraction is estimated at 65 %. Normal diastolic function. Right Ventricle Normal right ventricular size and systolic function. Right ventricular systolic pressure 20.8 mmHg. Right Atrium Normal right atrial size. Left Atrium Normal left atrial size. Mitral Valve Mildly thickened mitral valve. No mitral valve stenosis. Trace mitral valve regurgitation. Aortic Valve Aortic valve not well visualized. No aortic valve stenosis. No aortic valve regurgitation. Tricuspid Valve Structurally normal tricuspid valve. No tricuspid valve stenosis. No tricuspid valve regurgitation. Pulmonic Valve Pulmonic valve not well visualized. Pericardium No pericardial effusion. Aorta Normal size aortic root and proximal ascending aorta. IVC Normal IVC dimension with <50% respiratory change of the inferior vena cava. CONCLUSIONS 1. Normal left ventricular size, systolic function and wall thickness, with no regional wall motion abnormalities. Left ventricular ejection fraction is estimated at 65 %. Normal diastolic function. 2. Normal right ventricular size and systolic function. 3. No prior similar studies to compare. Savi Francois MD (Electronically Signed) Final Date: 22 October 2022 14:55 S
[2022-10-22 07:15] LABS: Thyroid Stimulating Hormone 1.85 uIU/mL (0.27-4.20)
--- NOTE | 2022-10-22 07:33 | PC.PHAR ---
PT INTUBATED UNABLE TO VERIFY- VERIFIED USING EXTERNAL MED LIST LAST FILLED
--- NOTE | 2022-10-22 07:45 | PC.NURSE ---
At 0230, Pt exhibited rhythm change from Sinus with inverted T waves to Sinus Arrythmia with multiple PACs and PVCs. Dr Flannery was notified of change. He told me to place the Nitro gtt on hold, and continue to monitor. Pt continued to decline and exhibited V-tach on the bedside monitor. My bedside assessment revealed an alert and oriented patient, following all commands, and denying chest pain. We completed a 12 lead EKG, which confirmed the rhythm. Dr Flannery was notified of the situation, he came to bedside and ordered bolus of amio. Zoll shock pads were placed on patient at this time. BG 27, 1 amp D50 pushed and solu-cortef administered. Repeat BG 93, 1 additional am D50 pushed. BP and HR declined 2 mg of atropine total administered. At 0332 pulses became weak and thready, Shahida Triana called at 0333. See Code Sheet. Intubated at 0336, CVC R IJ placed at 0347. Second Shahida Triana called at 0407, See second Code Sheet.
[2022-10-22 08:25] LABS: Lactate (Lactic Acid level) 1.2 mmol/L (0.5-2.2)
[2022-10-22 08:33] LABS: Troponin 5 2HR Delta 9.6 ABS# (0-10)
[2022-10-22] MEDS: sodium bicarbonate 150 MEQ in dextrose 5% 1,000 ML 100 MEQ IV (08:33)
[2022-10-22] MEDS: piperacillin-tazobactam 3.375 GM in sodium chloride 0.9% (plus) 50 ML IV ×3 (08:33→23:48)
[2022-10-22] MEDS: heparin 5,000 unit/mL INJ 1 mL IV (08:34)
[2022-10-22] MEDS: pantoprazole 40 mg SDV IVP ×2 (08:34→17:50)
[2022-10-22] MEDS: heparin drip 25,000 UNIT/500 ML PREMIX 23 UNIT IV (08:35)
[2022-10-22 08:36] LABS: Troponin 5 2HR 201.6 ng/L (0-15)
[2022-10-22] MEDS: propofol 1,000 MG/100 ML INJ 29.39 MG IV ×2 (08:45→17:44)
[2022-10-22 09:03] LABS: ABG PCO2 34.6 mmHg (35-45); ABG PH Result 7.36 (7.35-7.45); Alveolar-Arterial Oxygen Gradi 14.7 mmHg (5-10); Arterial Blood Gas Hematocrit 36.6 % (42-52); Base Excess ABG -5.1 mmol/L (-2.0-2.0); Blood Gas Allen Test Pos; Blood Gas Operator Identificat CAK; Blood Gas Sample Site Brachial, left; Blood Gas Sample Type Arterial; Carboxyhemoglobin 0.9 %THgb (0.4-20.1); HCO3 ABG 19.6 mmol/L (22-26); HGB O2 Sat 96.3 % (95-100); Ionized Calcium Level - ABG 1.2 mmol/L (1.1-1.4); Methemoglobin 0.7 % (0.4-1.5); Oxygen Device VENT; Oxygen Saturation ABG 97.8; PO2 ABG 95.9 mmHg (80.0-100.0)
[2022-10-22] MEDS: ipratropium-albuterol 3 mL Neb INHALATION ×3 (09:27→20:03)
[2022-10-22] MEDS: budesonide 0.5 mg/2 mL Neb INHALATION ×2 (09:28→20:03)
[2022-10-22 09:45] LABS: Iron 19 ug/dL (59-158); Total Iron Binding Capacity 621 mcg/dl; Unsaturated Iron Binding 602 ug/dL (112-347)
[2022-10-22] MEDS: folic acid 1 MG, multivitamin inj 10 ML, thiamine 100 MG in sodium chloride 0.9% 1,000 ML 252.8 MG IV (09:45)
[2022-10-22 10:00] LABS: Vitamin B12 808 pg/mL (232-1245)
[2022-10-22 10:28] LABS: Amphetamines Screen Urine Negative (Negative); Barbiturates Screen Urine Negative (Negative); Benzodiazepines Screen Urine Positive (Negative); Cocaine Screen Urine Negative (Negative); Opiate Screen Urine Negative (Negative); PCP Screen Urine Negative (Negative); THC Screen Urine Positive (Negative)
[2022-10-22 10:33] LABS: Add Urine Microscopic? YES; Bilirubin Urine Neg (Negative); Blood Urine 2+ (Negative); Glucose Urine UA Norm (Normal); Ketones Urine 1+ (Negative); Leukocyte Esterase Urine Negative (Negative); Nitrate Urine Negative (Negative); Protein Urine Trace (Negative); Urine Appearance Cloudy (CLEAR); Urine Color Yellow (Yellow); Urobilinogen Urine Neg (Negative); pH Urine 5 (5-7)
[2022-10-22 10:35] LABS: Add Urine Culture? No; Uric Acid Crystals Urine 25-40 /hpf
[2022-10-22 10:42] LABS: Potassium, Radom Urine 57 mmol/L; Urine Creatinine 152 mg/dL (39-259); Urine Random Sodium 20 mmol/L
--- NOTE | 2022-10-22 10:49 | ECG_ITS ---
[facility] Test Date: 2022-10-22 Pat Name: Pritesh Holbrook Department: Room: ICU10 Gender: Male Concrete Layer: : 1985 Requested By: Angel Luis Flannery Order Number: [id number] Gabbie MD: Savi Francois M.D. Measurements Intervals [place] Rate: 72 P: 47 [place]: 119 QRS: 50 QRSD: 90 T: 42 QT: 385 QTc: 424 Interpretive Statements SINUS RHYTHM WITH SHORT IL INTERVAL ST ELEVATION, PROBABLY EARLY REPOLARIZATION Compared to ECG 10/22/2022 06:43:46 Short [place] interval now present ST (T wave) deviation now present Early repolarization now present Sinus tachycardia no longer present Myocardial infarct finding no longer present Electronically Signed On 10-22-2022 19:11:27 PRODUCTION SANITIZER by Savi Francois M.D. [email or web address] state [email or web address] [email or web address]/store/[id number]
[2022-10-22 11:00] LABS: Urine Random Chloride < 10 mmol/L
[2022-10-22 11:42] LABS: D Dimer 0.31 ug/mIFEU (0-0.59)
[2022-10-22 11:47] LABS: Troponin 5 6HR Delta 19.8 ng/L (0-12)
[2022-10-22 11:48] LABS: Troponin 5 6HR 211.8 ng/L (0-15)
[2022-10-22 12:27] LABS: Folate Level > 20.0 ng/mL (4.5-32.2)
--- NOTE | 2022-10-22 12:28 | XRR_ITS ---
PROCEDURE INFORMATION: Exam: XR Chest Exam date and time: 10/22/2022 12:30 PM Age: 37 years old Clinical indication: Device placement; Other: Og placement TECHNIQUE: Imaging protocol: Radiologic exam of the chest. Views: 1 view. COMPARISON: CR (CHEST, ) 10/22/2022 3:38 AM FINDINGS: Tubes, catheters and devices: An endotracheal tube is present with the tip about 4 cm above the lamberto. A nasogastric tube extends down to the stomach the tip is not visible on this radiograph. Lungs: There is stable patchy infiltrate in the right lung base left lung is clear. Pleural spaces: Unremarkable. No pleural effusion. No pneumothorax. Heart/Mediastinum: Unremarkable. No cardiomegaly. Bones/joints: Unremarkable. XR/XR chest 1V portable [id number] IMPRESSION: 1. A nasogastric tube extends down to the stomach but the tip is not visible on this radiograph. 2. Stable right basilar infiltrate.
--- NOTE | 2022-10-22 12:42 | PC.CHAP ---
Pastoral Care Encounter/Spiritual Assessment Type of Contact [] Declined behavioral health specialist visit [] Patient/Family/Request visit [] Outpatient visit [] Follow-up visit [] Physician referral [] Code/Alert [x] Routine visit [] Staff referral [] Actively dying [] Patient sleeping [x] Family support [] [] Out of room [] Palliative care [] [x] Receiving care in room [] Pre-surgical visit [] Trauma [] Long length of stay [x] ICU visit [x] Other: visited in ER this AM transferred to ICU.. Relational/Emotional Strength [] Patient feels connected with others/family/visitors/staff [] Distress [] Loneliness/isolation [] Abandonment Spirituality of Patient [] Person of Belia [] Attends Confucianism of their Belia [] Believes in Prayer [] Reads Bible or Worship materials [] There are Spiritual issues to be addressed Division Commander Interventions [x] Prayer [] Active listening [] Non-anxious presence [] Spiritual/emotional support [] Crisis/trauma care [] Spiritual counseling [] Bereavement support [] Provided bereavement packet [] Provided Bible/devotional materials [] Provided toy/stuffed animal, coloring book to patient or family member [] Provided Communion [] Anointing/[place] [] Salvation [x] Completed spiritual assessment [] Other: Impact on Illness or Injury [] Angry [] Fearful [] Anxious [] Often cries [] Exhaustion [] Unable to work [] Unable to attend latter day [] Unable to walk/stand [] Unable to read [] Unable to drive [] Unable to eat/drink [] Unable to sleep [] Unable to be with family [] Patient intubated [] Other: Summary Time spent with patient
[2022-10-22] MEDS: propofol 1,000 MG/100 ML INJ 24.49 MG IV ×2 (13:28→21:56)
--- NOTE | 2022-10-22 13:59 | PM.PN ---
Subjective Subjective: Admitted distresser. Seen with family at bedside. Patient is sedated with propofol of 60, fentanyl on ventilator setting of 35% FiO2, tidal volume 500 with PEEP of 8 saturating well. Patient is on sodium bicarb infusion. Remains hemodynamically stable and afebrile. Vitals/I&O/Wt Last Vital Signs Temp 99.2 F 10/22/22 02:30 Pulse 62 10/22/22 13:57 Resp 18 10/22/22 13:57 BP 127/83 10/22/22 05:45 Pulse Ox 100 10/22/22 13:57 O2 Del Method 10/22/22 13:57 FiO2 30 10/22/22 13:57 10/21/22 10/22/22 10/22/22 22:59 06:59 14:59 Intake Total 29.033 / 29.033 284.004 / 284.004 Balance 29.033 / 29.033 284.004 / 284.004 Weight last 48 hrs Weight 37.336 kg Weight 81.647 kg Physical Exam Narrative: General: Intubated, sedated, Smith in place HEENT: PERRLA, pupils bilaterally equal and reactive Chest: Normal vesicular breath sounds, no added sounds, equal good air entry bilaterally CVS: S1-S2 regular, no murmurs, no tachycardia, no gallops, no rubs Abdomen: Soft, nontender, no organomegaly, bowel sounds present Neuro: No focal deficits, no facial deformity, AO x3, power 5/5 in all limbs Urinary Catheter Management: Smith: Cath Placed During This Visit: yes Urinary Catheter Date of Insertion: 10/22/22 Urinary Catheter Time of Insertion: 02:15 Data 10/22/22 02:04 10/22/22 02:04 Micro: Microbiology 10/22/22 09:30 Legionella Urinary Antigen - Final Urine Catheterized 10/22/22 09:30 Bacterial Antigens - Final Urine Kidney 10/22/22 05:30 Blood Culture - Preliminary Blood SPECIMEN COLLECTED 10/22/22 05:27 Blood Culture - Preliminary Blood SPECIMEN COLLECTED A&P Assessment and plan (1) Alcohol withdrawal seizure: Witnessed by spouse at home. Intubated in field. Wean down propofol. Continue with fentanyl. We will continue to monitor. Keep mean arterial pressure over 65, saturation over 92%.RAAS -2 to 0 (2) Respiratory failure: Intubated in the field to protect airway. Concern for aspiration pneumonia. On minimal ventilation Centrix for now. Follow-up sputum culture, blood culture. Check MRSA swab, COVID-19 PCR, flu swab, procalcitonin, urine Legionella and bacterial antigen, dimer. For now continue with Zosyn. (3) Acute kidney injury: Present on admission. Baseline creatinine around 1. 1.7 admission. Check urinalysis, urine lites, urine creatinine. Medical reconciliation done for nephrotoxic drugs. Banana bag followed by D5 NS at 100 cc/h. Stop bicarb drip (4) Elevated troponin: Baseline troponin elevated. Could be secondary to acute kidney injury or possible seizure. Check echocardiogram. Check A1c, lipid panel. Aspirin 325 mg 1 time followed by 81 mg daily. For now start on heparin drip. Will discontinue as per echocardiogram results and troponin trend. (5) Hypertension: Goal blood pressure less than 140/90 mmHg. Takes atenolol 25 mg twice daily, clonidine as needed at home. Blood pressures at goal for now. Hold off on medications and restart as per goal. (6) Alcohol use: Check urine drug screen. Alcohol level negative on admission. As per spouse patient did not consume alcohol since Wednesday. Today is . (7) Abdominal pain: Patient has been complaining of abdominal pain for last few days and was stating the same before the possible seizure episode last night. CT abdomen pelvis on admission negative for any acute pathology. Not concerning for any kidney stones. No gallstones. No ductal dilation. Could be secondary to alcohol gastritis. IV Protonix 40 mg twice daily. Plan Full code. NPO. Heparin drip will suffice for DVT prophylaxis. Protonix for PUD prophylaxis Discussed in detail with patient's spouse and sister at bedside. All the questions were answered. Attestations Medical Necessity Statement*: Admission for more than 2 midnights for management of alcohol withdrawal seizures leading to respiratory failure, aspiration pneumonia, acute kidney injury Critical Care Time: The high probability of a clinically significant, sudden or life threatening deterioration of the patient's [renal, neurological, pulmonary] system(s) required my full and direct attention, intervention and personal management. The critical care time is as shown. This time is in addition to time spent performing any reported procedures but includes the following: [x] Data and vital sign review and interpretation [x] Patient assessment, examination and intervention [x] Documentation [x] Medication orders and management 60 Coding Level of Care Code Acute Associate Professor Of Philosophy for [facility] Fwd Diagnoses Alcohol withdrawal seizure F10.939; R56.9 Respiratory failure J96.90 Acute kidney injury N17.9 Elevated troponin R77.8 Hypertension I10 Alcohol use Z72.89 Abdominal pain R10.9
[2022-10-22 14:57] LABS: Partial Thromboplastin Time 52.3 SECONDS (23.9-36.7)
[2022-10-22] MEDS: LORazepam 2 mg/mL INJ 1 mL 4 MG IVP (15:02)
--- NOTE | 2022-10-22 15:34 | PC.NURSE ---
Patient became agitated when nasal swab was performed. Patient thrashing in bed unable to follow safety instructions. Dr. Waldron notified. Ativan administered per order. Patient calmed down. Heparin drip reviewed with Dr. Waldron at bedside. Orders to continue Heparin drip per protocol, no boluses.
[2022-10-22] MEDS: aspirin 81 mg Chew Tablet 324 MG PO (15:52)
[2022-10-22] MEDS: dextrose 5%-sod chloride 0.9% 1,000 ML 50 ML IV (16:07)
[2022-10-22 17:26] LABS: Adenovirus Not Detected (NOT DETECT); Chlamydia Pneumoniae Not Detected (NOT DETECT); Coronavirus 229E,HKU1,NL63,OC4 Not Detected (NOT DETECT); Human Metapneumovirus Not Detected (NOT DETECT); Human Rhinovirus/Enterovirus Not Detected (NOT DETECT); Influenza A Not Detected (NOT DETECT); Influenza A H1 Not Detected (NOT DETECT); Influenza A H1-2009 Not Detected (NOT DETECT); Influenza A H3 Not Detected (NOT DETECT); Influenza B Not Detected (NOT DETECT); Mycoplasma Pneumoniae Not Detected (NOT DETECT); Parainfluenza Virus Type 1 Not Detected (NOT DETECT); Parainfluenza Virus Type 2 Not Detected (NOT DETECT); Parainfluenza Virus Type 3 Not Detected (NOT DETECT); Parainfluenza Virus Type 4 Not Detected (NOT DETECT); Respiratory Syncytial Virus A Not Detected (NOT DETECT); Respiratory Syncytial Virus B Not Detected (NOT DETECT); SARS-COV-2 Not Detected (NOT DETECT)
[2022-10-22 22:28] LABS: Partial Thromboplastin Time 59.6 SECONDS (23.9-36.7)
--- NOTE | 2022-10-22 22:51 | PC.NURSE ---
PTT 59.2. No change to heparin drip per protocol.
[2022-10-23] VITALS (92 sets, daily range): BP systolic 95–178; BP diastolic 44–115; PULSE 56–114; RESP 10–29; TEMP 36.4–36.7; O2SAT 84–100
[2022-10-23] MEDS: propofol 1,000 MG/100 ML INJ 24.49 MG IV ×3 (01:46→08:35)
[2022-10-23] MEDS: ipratropium-albuterol 3 mL Neb INHALATION ×4 (02:04→20:35)
[2022-10-23 03:56] LABS: Basophils % 0.2 %; Eosinophils # 0.1 10^3/uL (0.0-0.8); Hematocrit 35.9 % (42.0-52.0); Hemoglobin 10.3 g/dL (11.7-16.6); Lymphocytes # 1.5 10^3/uL (0.8-4.8); Lymphocytes % 15.8 %; Mean Corpuscular HGB Conc 28.7 g/dL (30.0-36.0); Mean Corpuscular Hemoglobin 21.3 pg (28.0-34.0); Mean Corpuscular Volume 74.3 fl (80-94); Mean Platelet Volume 9.9 fL (7.4-10.4); Monocytes % 10.2 %; Neutrophils # 6.66 10^3/uL (1.8-7.7); Neutrophils % 71.7 %; Nucleated Red Blood Cells % 0 %; Platelet Count 285 10^3/cmm (130-400); Red Blood Count 4.83 10^6/uL (4.1-5.3); Red Cell Distribution Width 17.6 % (12.1-15.1); White Blood Count 9.3 10^3/uL (4.0-10.0)
[2022-10-23 04:08] LABS: Partial Thromboplastin Time 55.2 SECONDS (23.9-36.7)
[2022-10-23 04:12] LABS: Estmated Average Glucose 94; Hemoglobin A1C 4.9 % (4.0-6.0)
[2022-10-23 04:19] LABS: C Reactive Protein 33.2 mg/L (0.0-4.9); Chol HDL Ratio 3.53 mg/dL (1.0-5.00); Cholesterol 141 mg/dL (0-200); HDL Cholesterol 40 mg/dL (60-100); LDL Cholesterol Calculated 51 mg/dL (50-129); Magnesium 2.9 mg/dL (1.7-2.3); Phosphorus 2.9 mg/dL (2.5-4.5); Triglycerides 249 mg/dL (0-150); VLDL Cholestrol Calculation 50 mg/dL (0-30)
[2022-10-23 04:23] LABS: ABG PCO2 39.9 mmHg (35-45); ABG PH Result 7.33 (7.35-7.45); Arterial Blood Gas Hematocrit 32.4 % (42-52); Base Excess ABG -4.4 mmol/L (-2.0-2.0); Blood Gas Allen Test Pos; Blood Gas Operator Identificat JB; Blood Gas Sample Site Radial, right; Blood Gas Sample Type Arterial; HCO3 ABG 21.1 mmol/L (22-26); Oxygen Device VENT; PO2 ABG 95.2 mmHg (80.0-100.0)
[2022-10-23] MEDS: heparin drip 25,000 UNIT/500 ML PREMIX 25 UNIT IV (05:19)
[2022-10-23] MEDS: piperacillin-tazobactam 3.375 GM in sodium chloride 0.9% (plus) 50 ML IV ×3 (06:11→22:35)
[2022-10-23] MEDS: budesonide 0.5 mg/2 mL Neb INHALATION ×2 (08:15→20:35)
[2022-10-23] MEDS: pantoprazole 40 mg SDV IVP ×2 (08:36→17:30)
[2022-10-23] MEDS: aspirin 81 mg Chew Tablet PO (08:36)
[2022-10-23] MEDS: dexmedetomidine 400 MCG in sodium chloride 0.9% (100 ml) 100 ML IV ×2 (09:07→17:30)
[2022-10-23 10:33] LABS: Basophils % 0.1 %; Eosinophils # 0.1 10^3/uL (0.0-0.8); Eosinophils % 0.7 %; Hematocrit 35.5 % (42.0-52.0); Hemoglobin 10.4 g/dL (11.7-16.6); Lymphocytes # 0.9 10^3/uL (0.8-4.8); Lymphocytes % 9.1 %; Mean Corpuscular HGB Conc 29.3 g/dL (30.0-36.0); Mean Corpuscular Hemoglobin 21.5 pg (28.0-34.0); Mean Corpuscular Volume 73.3 fl (80-94); Mean Platelet Volume 9.5 fL (7.4-10.4); Monocytes # 0.8 10^3/uL (0.2-0.9); Monocytes % 8.7 %; Neutrophils % 80.8 %; Nucleated Red Blood Cells % 0 %; Platelet Count 253 10^3/cmm (130-400); Red Blood Count 4.84 10^6/uL (4.1-5.3); Red Cell Distribution Width 17.5 % (12.1-15.1); White Blood Count 9.7 10^3/uL (4.0-10.0)
[2022-10-23 10:46] LABS: Partial Thromboplastin Time 42.9 SECONDS (23.9-36.7)
[2022-10-23] MEDS: ondansetron 2 mg/ML SDV 2 mL 4 MG IVP ×2 (10:49→15:29)
[2022-10-23 10:50] LABS: Alanine Aminotransferase 18 U/L (0-41); Albumin Level 3.8 g/dL (3.5-5.2); Alkaline Phosphatase 74 U/L (40-130); Anion Gap 15.7 (5-19); Aspartate Amino Transferase 20 U/L (0-40); Blood Urea Nitrogen 25 mg/dL (6-20); Calcium 8.7 mg/dL (8.5-10.5); Carbon Dioxide 20 mmol/L (22-29); Chloride 110 mmol/L (98-107); Glomerular Filtration Rate 42.9 mL/min (90-130); Glucose 112 mg/dL (65-115); Osmolality Calculated 299 mOsm/kg (285-295); Potassium 3.7 mmol/L (3.5-5.1); Sodium 142 mmol/L (136-145); Total Bilirubin 0.2 mg/dL (0.15-1.2); Total Protein 6.8 g/dL (6.6-8.7)
[2022-10-23 10:52] LABS: Troponin T (5th) Once 59 ng/L (0-15)
--- NOTE | 2022-10-23 13:07 | PM.PN ---
Subjective Subjective: No acute events overnight. Patient has remained hemodynamically stable and afebrile. Today morning at first patient was on sedation with propofol and fentanyl. Patient was waking up and following commands and sedation was turned off and switched over to Precedex. Eventually patient was extubated to 2 L saturating 97%. Otherwise has remained hemodynamically stable and afebrile. Documented urine output of around 2 L in last 24 hours. Vitals/I&O/Wt Last Vital Signs Temp 98.0 F 10/23/22 05:30 Pulse 89 10/23/22 07:35 Resp 10 L 10/23/22 10:30 BP 96/47 10/23/22 06:00 Pulse Ox 97 10/23/22 10:30 O2 Del Method 10/23/22 07:30 FiO2 30 10/23/22 10:30 10/22/22 10/23/22 10/23/22 22:59 06:59 14:59 Intake Total 747.293 / 1031.297 460.423 / 1491.720 186.574 / 186.574 Output Total 100 / 800 1450 / 2250 Balance 647.293 / 231.297 -989.577 / -758.280 186.574 / 186.574 Weight last 48 hrs Weight 37.336 kg Weight 81.647 kg Physical Exam Narrative: General: Drowsy, awake and alert x3, following commands, on [address] HEENT: PERRLA, pupils bilaterally equal and reactive Chest: Normal vesicular breath sounds, no added sounds, equal good air entry bilaterally CVS: S1-S2 regular, no murmurs, no tachycardia, no gallops, no rubs Abdomen: Soft, nontender, no organomegaly, bowel sounds present Neuro: No focal deficits, no facial deformity, AO x3, power 5/5 in all limbs Urinary Catheter Management: Smith: Cath Placed During This Visit: yes Reason for Continuing Indwelling Catheter: Accurate Measurement of Urinary Output in Critically Ill Patients Urinary Catheter Date of Insertion: 10/22/22 Urinary Catheter Time of Insertion: 02:15 Data 10/23/22 10:20 10/23/22 10:20 Micro: Microbiology 10/22/22 05:30 Blood Culture - Preliminary Blood NEGATIVE TO DATE 10/22/22 05:27 Blood Culture - Preliminary Blood NEGATIVE TO DATE 10/22/22 14:35 MRSA Culture - Final Nose 10/22/22 09:30 Gram Stain - Final Sputum - Endotracheal Tube Aspirate 10/22/22 09:30 Legionella Urinary Antigen - Final Urine Catheterized 10/22/22 09:30 Bacterial Antigens - Final Urine Kidney A&P Assessment and plan (1) Alcohol withdrawal seizure: Witnessed by spouse at home. Saturation maintained over 92 with mean arterial pressure was 65. Extubated on 10/23. Continue with Precedex. Will wean gradually. Speech evaluation, PT/OT evaluation. Seizure precautions (2) Respiratory failure: Sputum culture pending, MRSA swab, urine Legionella, bacterial antigen negative. Continue with Zosyn. Keep saturation over 92. DuoNebs every 6 hour, desonide twice daily. Incentive spirometry. (3) Acute kidney injury: Present on admission. Baseline creatinine around 1. Creatinine 1.8 today. Check CPK. Appreciate urinalysis, urine lites. Fena- 0.2%. Concerning for uric acid crystals. Increase fluid to 1.5 cc/h. Repeat urinalysis, urine eosinophils, urine creatinine. Medical reconciliation done for nephrotoxic drugs. (4) Elevated troponin: Baseline troponin elevated. Could be secondary to acute kidney injury or possible seizure. Repeat troponin levels. Echocardiogram results appreciated. Normal EF without regional wall motion normality. Stop heparin drip. A1c 4.9, appreciate lipid panel. Continue with 81 mg of aspirin. (5) Hypertension: Goal blood pressure less than 140/90 mmHg. Takes atenolol 25 mg twice daily, clonidine as needed at home. Blood pressures at goal for now. Hold off on medications and restart as per goal. (6) Alcohol use: Appreciate drug screen. Continue Precedex. If needed will add CIWA protocol Ativan. (7) Abdominal pain: Patient has been complaining of abdominal pain for last few days and was stating the same before the possible seizure episode last night. CT abdomen pelvis on admission negative for any acute pathology. Not concerning for any kidney stones. No gallstones. No ductal dilation. Could be secondary to alcohol gastritis. IV Protonix 40 mg twice daily. Plan Full code. Speech evaluation. Advance diet accordingly. Heparin drip will suffice for DVT prophylaxis. Protonix for PUD prophylaxis Discussed in detail with patient's spouse and sister at bedside. All the questions were answered. Attestations Medical Necessity Statement*: Requires further hospitalization for management of hypoxic respiratory failure in setting of alcohol withdrawal seizures, acute kidney injury Critical Care Time: The high probability of a clinically significant, sudden or life threatening deterioration of the patient's [cardiac, pulmonary, neurological, renal] system(s) required my full and direct attention, intervention and personal management. The critical care time is as shown. This time is in addition to time spent performing any reported procedures but includes the following: [x] Data and vital sign review and interpretation [x] Patient assessment, examination and intervention [x] Documentation [x] Medication orders and management Critical Care Time (min): 90 Coding Level of Care Code Acute Civil Preparedness Coordinator for g Fwd Diagnoses Alcohol withdrawal seizure F10.939; R56.9 Respiratory failure J96.90 Acute kidney injury N17.9 Elevated troponin R77.8 Hypertension I10 Alcohol use Z72.89 Abdominal pain R10.9
[2022-10-23 13:59] LABS: Creatine Phosphokinase 232 U/L (39-308)
[2022-10-23] MEDS: dextrose 5%-sod chloride 0.9% 1,000 ML 50 ML IV ×2 (15:29→22:35)
[2022-10-23 16:48] LABS: Bilirubin Urine Neg (Negative); Blood Urine Neg (Negative); Glucose Urine UA Norm (Normal); Ketones Urine Negative (Negative); Leukocyte Esterase Urine 1+ (Negative); Nitrate Urine Negative (Negative); Protein Urine Trace (Negative); Urine Appearance Clear (CLEAR); Urine Color Yellow (Yellow); Urobilinogen Urine Norm (Negative); pH Urine 5 (5-7)
[2022-10-23 16:49] LABS: Add Urine Culture? No; Add Urine Microscopic? YES; RBC Urine 0-4 /hpf (0-2); Squamous Epithelial Cell Urine 0-4 /hpf (0-5); Uric Acid Crystals Urine 2 /hpf; WBC Urine 0-4 /hpf (0-5)
[2022-10-23 17:08] LABS: Urine Creatinine 153 mg/dL (39-259)
[2022-10-23 17:32] LABS: Eosinophil Urine No Eosinophils Seen
[2022-10-23 20:05] LABS: Microalbum Creatinine Ratio Ur 65 mg/dL (0-20)
[2022-10-23 20:06] LABS: Creatinine Urine, Random 153 mg/dL (39-259); Microalbumin Random Urine 10 ug/dL (0-20)
[2022-10-24] VITALS (42 sets, daily range): BP systolic 131–185; BP diastolic 65–105; PULSE 68–106; RESP 14–28; TEMP 36.3–37.2; O2SAT 91–100
[2022-10-24 05:12] LABS: Basophils % 0.2 %; Eosinophils # 0.1 10^3/uL (0.0-0.8); Eosinophils % 1.4 %; Hematocrit 31.7 % (42.0-52.0); Hemoglobin 9.2 g/dL (11.7-16.6); Lymphocytes # 0.8 10^3/uL (0.8-4.8); Lymphocytes % 12.7 %; Mean Corpuscular Hemoglobin 21.4 pg (28.0-34.0); Mean Corpuscular Volume 73.7 fl (80-94); Mean Platelet Volume 10.1 fL (7.4-10.4); Monocytes # 0.5 10^3/uL (0.2-0.9); Monocytes % 8.2 %; Neutrophils # 4.89 10^3/uL (1.8-7.7); Neutrophils % 76.9 %; Nucleated Red Blood Cells % 0 %; Platelet Count 252 10^3/cmm (130-400); Red Cell Distribution Width 17.2 % (12.1-15.1); White Blood Count 6.4 10^3/uL (4.0-10.0)
[2022-10-24 05:25] LABS: Alanine Aminotransferase 16 U/L (0-41); Albumin Level 3.4 g/dL (3.5-5.2); Alkaline Phosphatase 73 U/L (40-130); Anion Gap 11.6 (5-19); Aspartate Amino Transferase 18 U/L (0-40); Blood Urea Nitrogen 13 mg/dL (6-20); Calcium 8.6 mg/dL (8.5-10.5); Carbon Dioxide 22 mmol/L (22-29); Chloride 109 mmol/L (98-107); Globulin 2.9 g/dL (1.3-4.6); Glomerular Filtration Rate 68.5 mL/min (90-130); Glucose 108 mg/dL (65-115); Osmolality Calculated 289 mOsm/kg (285-295); Potassium 3.6 mmol/L (3.5-5.1); Sodium 139 mmol/L (136-145); Total Bilirubin 0.3 mg/dL (0.15-1.2); Total Protein 6.3 g/dL (6.6-8.7)
[2022-10-24] MEDS: dextrose 5%-sod chloride 0.9% 1,000 ML 125 ML IV (05:29)
[2022-10-24] MEDS: piperacillin-tazobactam 3.375 GM in sodium chloride 0.9% (plus) 50 ML IV ×3 (06:21→22:45)
[2022-10-24] MEDS: pantoprazole 40 mg SDV IVP ×2 (08:16→17:24)
--- NOTE | 2022-10-24 09:22 | P.PN_ITS ---
Subjective Subjective: He states he is overall feeling better. Yesterday got lightheaded when trying to stand up with physical therapy. Has not eaten very well, appetite not the best. Has been having some soreness of his abdomen, diffuse, somewhat concentrated in the center. No vomiting. Denies having any chest pain or pressure. Vitals/I&O/Wt Last Vital Signs Temp 98.9 F 10/24/22 04:15 Pulse 97 10/24/22 08:00 Resp 18 10/24/22 08:00 BP 147/83 10/24/22 06:00 Pulse Ox 93 10/24/22 08:00 O2 Del Method 10/24/22 08:00 O2 Flow Rate 2 10/23/22 13:35 FiO2 30 10/23/22 10:30 10/23/22 10/24/22 10/24/22 22:59 06:59 14:59 Intake Total 453.670 / 9242.002 1768.417 / 3036.207 Output Total 1300 / 1500 550 / 2050 Balance -846.330 / 145.790 840.417 / 986.207 Weight last 48 hrs Weight 81.76 kg Physical Exam Narrative: at bedside. Const: COMMON NORMALS: patient oriented x3 and alert GENERAL APPEARANCE: cooperative ORIENTATION/CONSCIOUSNESS: Yes awake HENMT: COMMON NORMALS: oropharynx normal Neck/C-Spine: COMMON NORMALS: no JVD Resp: COMMON NORMALS: normal respiratory effort and clear to auscultation bilaterally AUSCULTATION: clear to auscultation bilaterally Cardio: COMMON NORMALS: no JVD, regular rhythm, S1 normal heart sound present, S2 normal heart sound present and No murmurs present (Cardio) RHYTHM: regular rhythm HEART SOUNDS: S1 normal heart sound present and S2 normal heart sound present GI: COMMON NORMALS: Normal to inspection, nondistended, normoactive bowel sounds present and Soft to palpation PALPATION: Yes Soft to palpation OTHER: Minimally tender, particularly centrally/periumbilical Extremity: COMMON NORMALS: no joint enlargement and no pedal edema Neuro: COMMON NORMALS: patient oriented x3 and moves all extremities SENSORIUM/ORIENTATION: Yes alert Skin: COMMON NORMALS: no rashes or lesions noted GENERAL SKIN EXAM: no rashes or lesions noted Urinary Catheter Management: Smith: Cath Placed During This Visit: yes, but has since been removed by the nurse Reason for Continuing Indwelling Catheter: Decision to DC Catheter Urinary Catheter Date of Insertion: 10/22/22 Urinary Catheter Time of Insertion: 02:15 Date Urinary Catheter Removed: 10/24/22 Time Urinary Catheter Discontinued: 05:35 Data 10/24/22 04:26 10/24/22 04:26 Micro: Microbiology 10/22/22 09:30 Gram Stain - Final Sputum - Endotracheal Tube Aspirate Sputum Culture - Preliminary 10/22/22 05:30 Blood Culture - Preliminary Blood NEGATIVE TO DATE 10/22/22 05:27 Blood Culture - Preliminary Blood NEGATIVE TO DATE A&P Assessment and plan (1) Orthostasis: Got lightheaded, felt like he was going to pass out yesterday stenting with physical therapy. Did have less than definition orthostatic hypotension, but did get symptomatic. May have been combination of deconditioning, intubation, lack of oral intake, as well as recently weaning of sedatives, and on Precedex. Currently he is off all sedatives, off Precedex. He is awake and alert. Blood pressure hypertensive this morning. Reassess orthostatic symptoms, orthostatic vitals. Advance diet as tolerating, although with abdominal symptoms will check lipase. (2) Alcohol withdrawal seizure: So far without recurrence of seizure. Discussed with him and his spouse needs to Witnessed by spouse at home. Saturation maintained over 92 with mean arterial pressure was 65. Extubated on 10/23. Continue with Precedex. Will wean gradually. Speech evaluation, PT/OT evaluation. Seizure precautions (3) Respiratory failure: Saturating 93% on room air. Sputum culture pending, MRSA swab, urine Legionella, bacterial antigen negative. Continue with Zosyn. Keep saturation over 92. DuoNebs every 6 hour, desonide twice daily. Incentive spirometry. (4) Acute kidney injury: MEHUL continues to improve, creatinine down to 1 2. Discussed with him will need to follow-up with primary provider for reassessment, reassessment of UA. Discussed albuminuria which will need reassessment. Present on admission. Baseline creatinine around 1. Creatinine 1.8 today. Check CPK. Appreciate urinalysis, urine lites. Fena- 0.2%. Concerning for uric acid crystals. Increase fluid to 1.5 cc/h. Repeat urinalysis, urine eosinophils, urine creatinine. Medical reconciliation done for nephrotoxic drugs. (5) Elevated troponin: Continue aspirin. Discussed stress test after discharge, ICD is deconditioned, will do Lexiscan MIBI. Baseline troponin elevated. Could be secondary to acute kidney injury or possible seizure. Repeat troponin levels. Echocardiogram results appreciated. Normal EF without regional wall motion normality. A1c 4.9, appreciate lipid panel. Continue with 81 mg of aspirin. (6) Hypertension: Orthostatic symptoms yesterday. For now not restarted on medications. Will reassess orthostatics. Goal blood pressure less than 140/90 mmHg. Takes atenolol 25 mg twice daily, clonidine as needed at home. Blood pressures at goal for now. (7) Alcohol use: Discussed with him and his regarding alcohol cessation. Discussed consideration of rehabilitation, turning leaf. At this time he states he is done drinking, he is going to quit on his own. Discussed with him this is a difficult task, he states he understands rehabilitation options are available for him. Appreciate drug screen. Weaned off Precedex. (8) Abdominal pain: Check lipase. Continue Protonix. Discussed iron deficiency anemia. Discussed possibility of alternative gastritis, ulcer, will benefit from endoscopic evaluation due to iron deficiency anemia, EtOH use to exclude more dangerous causes. Reports history of BRBPR due to hemorrhoids. Will benefit from upper and lower evaluation. CT abdomen pelvis on admission negative for any acute pathology. Not concerning for any kidney stones. No gallstones. No ductal dilation. Plan Full code. Protonix for PUD prophylaxis Attestations Medical Necessity Statement*: Continue admission for assessment management of severe alcohol withdrawal, mobilization, disposition planning. Coding Level of Care Code Acute Manager Freelance for [facility] Fwd Diagnoses Orthostasis I95.1 Alcohol withdrawal seizure F10.939; R56.9 Respiratory failure J96.90 Acute kidney injury N17.9 Elevated troponin R77.8 Hypertension I10 Alcohol use Z72.89 Abdominal pain R10.9
[2022-10-24] MEDS: aspirin 81 mg EC Tablet PO (09:30)
[2022-10-24 09:38] LABS: Lipase 31 U/L (13-60)
--- NOTE | 2022-10-24 14:08 | PC.NURSE ---
Spoke to Dr. Seaman to report patient's c/o of hot sweats mixed with cold chills. Reported patient is diaphoretic with slight tremors. Clarified medication orders for CIWA. Dr. Seaman states he will put orders in for CIWA protocol.
[2022-10-24] MEDS: LORazepam 2 mg/mL INJ 1 mL IVP (14:31)
--- NOTE | 2022-10-24 15:17 | PC.NURSE ---
Clarified order for thiamine with Dr. Seaman. Orders to hold one time dose d/t dose given this am.
--- NOTE | 2022-10-24 18:03 | PC.NURSE ---
Patient arrived to unit via WC from ICU, no c/o pain or discomfort, sister at bedside. Bed rails padded for seizure precautions and suction at bedside. Patient able to turn self frequently and educated with importance of turns during stay. Minimal sweats at this time and no tremors or YANCEY. Good UOP and tolerating diet. Calm, cooperative and appropriate. No needs or new events. Room clean and clutter free with call light in reach. Elevated BP with remaining VSS, AAOx4, all questions and concerns addressed during this nurses shift. Will continue to monitor until nurse handoff at shift change.
[2022-10-25 04:00] VITALS: BP 170/88; PULSE 56; RESP 17; TEMP 36.6; O2SAT 98
[2022-10-25 05:43] LABS: Basophils % 0.2 %; Eosinophils # 0.1 10^3/uL (0.0-0.8); Eosinophils % 1.3 %; Hematocrit 33.7 % (42.0-52.0); Hemoglobin 9.8 g/dL (11.7-16.6); Lymphocytes # 0.8 10^3/uL (0.8-4.8); Lymphocytes % 15.5 %; Mean Corpuscular HGB Conc 29.1 g/dL (30.0-36.0); Mean Corpuscular Hemoglobin 21.2 pg (28.0-34.0); Mean Corpuscular Volume 72.9 fl (80-94); Mean Platelet Volume 9.6 fL (7.4-10.4); Monocytes # 0.4 10^3/uL (0.2-0.9); Monocytes % 8.3 %; Neutrophils # 3.85 10^3/uL (1.8-7.7); Neutrophils % 73.9 %; Nucleated Red Blood Cells % 0 %; Platelet Count 260 10^3/cmm (130-400); Red Blood Count 4.62 10^6/uL (4.1-5.3); Red Cell Distribution Width 17.1 % (12.1-15.1); White Blood Count 5.2 10^3/uL (4.0-10.0)
[2022-10-25 06:06] LABS: Alanine Aminotransferase 31 U/L (0-41); Albumin Level 3.7 g/dL (3.5-5.2); Alkaline Phosphatase 65 U/L (40-130); Anion Gap 11.7 (5-19); Aspartate Amino Transferase 28 U/L (0-40); Blood Urea Nitrogen 6 mg/dL (6-20); Calcium 9.1 mg/dL (8.5-10.5); Carbon Dioxide 26 mmol/L (22-29); Chloride 101 mmol/L (98-107); Globulin 2.8 g/dL (1.3-4.6); Glomerular Filtration Rate 109.4 mL/min (90-130); Glucose 93 mg/dL (65-115); Osmolality Calculated 277 mOsm/kg (285-295); Potassium 3.7 mmol/L (3.5-5.1); Sodium 135 mmol/L (136-145); Total Bilirubin 0.4 mg/dL (0.15-1.2); Total Protein 6.5 g/dL (6.6-8.7)
[2022-10-25] MEDS: piperacillin-tazobactam 3.375 GM in sodium chloride 0.9% (plus) 50 ML IV (06:18)
[2022-10-25 07:47] VITALS: BP 142/74; PULSE 72; RESP 16; TEMP 36.6; O2SAT 99
[2022-10-25 08:00] VITALS: PULSE 77; RESP 16; O2SAT 98
[2022-10-25] MEDS: multivitamin therapeutic Tablet 1 TAB PO (08:34)
[2022-10-25] MEDS: aspirin 81 mg EC Tablet PO (08:35)
[2022-10-25] MEDS: folic acid 1 mg Tablet PO (08:35)
[2022-10-25] MEDS: thiamine 100 mg Tablet PO (08:35)
[2022-10-25] MEDS: pantoprazole 40 mg SDV IVP (08:35)
[2022-10-25 12:00] VITALS: BP 134/75; PULSE 72; RESP 16; TEMP 36.7; O2SAT 97
[2022-10-25 13:28] VITALS: BP 134/75; PULSE 72; RESP 16; TEMP 36.7; O2SAT 97
--- NOTE | 2022-10-25 15:09 | PM.DCS ---
Discharge Providers Date of Admission: 10/22/22 03:55 Date of Discharge: October 25, 2022 Attending Provider at Admission: Angel Luis Flannery MD Attending Provider at Discharge: Jerardo Seaman Diagnoses at Discharge Discharge Diagnosis (1) Orthostasis: Status: Acute (2) Alcohol withdrawal seizure: Status: Acute (3) Respiratory failure: Status: Acute (4) Acute kidney injury: Status: Acute (5) Elevated troponin: Status: Acute (6) Hypertension: Status: Acute (7) Alcohol use: Status: Acute (8) Abdominal pain: Status: Acute Reason for Visit Reason for Visit: SEIZURE Hospital Course Hospital Course Pleasant 37-year-old gentleman with alcohol use disorder stopped drinking about 3 days earlier, suffered a seizure, was confused, combative, required multiple doses of benzodiazepine in EMS, as he was still combative, was intubated. With alcohol withdrawal, possible pneumonia on imaging on presentation. Empirically treated with antibiotics. Initially fentanyl, propofol for sedation. Subsequently weaned over to Precedex, which was then weaned down. No recurrent seizures, extubated, recovering well. MEHUL on presentation, creatinine 1.7, so far has resolved. Uric acid crystals found in urine. Please follow-up on reassessment. Otherwise no symptoms of gout. Oxygenation continues to improve, weaned off oxygen. Will complete short course of antibiotic for possible pneumonia with cefdinir. Noted elevated troponin on presentation. Once able to Giurgius review of systems he denied any chest pain or pressure. Echocardiogram with normal ejection fraction, no regional wall motion abnormalities. Normal diastolic function. He is referred for additional assessment with stress testing. He was counseled to abstain from alcohol use. Offered help with setting up rehabilitation but states that he has quit drinking now and declines additional assistance. Please follow-up with him and assist in cessation if he agrees. Continue follow-up regarding chronic conditions including hypertension. Please follow-up with him also regarding iron deficiency anemia. He would benefit from follow-up with endoscopic evaluation. At discharge noted minimal swelling of left hand with his IV in the left upper extremity. He denies any numbness or paresthesia. Hand is perfused. No difficulty with movement. Discussed to elevate, he knows to seek medical attention immediately in case of any worsening symptoms. Physical Exam Const: COMMON NORMALS: patient oriented x3 and alert GENERAL APPEARANCE: cooperative ORIENTATION/CONSCIOUSNESS: Yes awake HENMT: COMMON NORMALS: oropharynx normal Neck/C-Spine: COMMON NORMALS: no JVD Resp: COMMON NORMALS: normal respiratory effort and clear to auscultation bilaterally AUSCULTATION: clear to auscultation bilaterally Cardio: COMMON NORMALS: no JVD, regular rhythm, S1 normal heart sound present, S2 normal heart sound present and No murmurs present (Cardio) RHYTHM: regular rhythm HEART SOUNDS: S1 normal heart sound present and S2 normal heart sound present GI: COMMON NORMALS: Normal to inspection, nondistended, normoactive bowel sounds present, Soft to palpation and non-tender PALPATION: Yes Soft to palpation Extremity: COMMON NORMALS: no joint enlargement and no pedal edema Neuro: COMMON NORMALS: patient oriented x3 and moves all extremities SENSORIUM/ORIENTATION: Yes alert Skin: COMMON NORMALS: no rashes or lesions noted GENERAL SKIN EXAM: no rashes or lesions noted Urinary Catheter Management: Smith: Cath Placed During This Visit: yes, but has since been removed by the nurse Reason for Continuing Indwelling Catheter: Decision to DC Catheter Urinary Catheter Date of Insertion: 10/22/22 Urinary Catheter Time of Insertion: 02:15 Date Urinary Catheter Removed: 10/24/22 Time Urinary Catheter Discontinued: 05:35 Discharge Data Studies Completed and Pending Completed Studies During Hospitalization Category Date Time Status CT abdomen pelvis wo con [id number] Stat Cat Scan 10/22/22 02:[address] head wo con* [id number] Stat Cat Scan 10/22/22 02:06 Completed CXRP [XR chest 1V portable [id number]] Stat Exams 10/22/22 03:34 Completed XR chest 1V portable [id number] Routine Exams 10/22/22 12:28 Completed XR chest 1V portable [id number] Stat Exams 10/22/22 02:06 Completed CV. echo complete* [id number] Routine Ultrasound 10/22/22 06:57 Completed Pending at discharge Category Date Time Status Blood Culture Stat Lab 10/22/22 05:30 Results Urine Protein Electrop Random Routine Lab 10/23/22 16:30 Received Radiology Impressions Head CT 10/22/22 02:06 IMPRESSION: 1. No acute intracranial hemorrhage or mass effect. 2. No definite acute infarct by CT, see above. 3. Other findings discussed above. Abdomen/Pelvis CT 10/22/22 02:54 IMPRESSION: No acute findings. Chest X-Ray 10/22/22 12:28 IMPRESSION: 1. A nasogastric tube extends down to the stomach but the tip is not visible on this radiograph. 2. Stable right basilar infiltrate. Laboratory Results WBC 5.2 10^3/uL (4.0-10.0) 10/25/22 05:10 RBC 4.62 10^6/uL (4.1-5.3) 10/25/22 05:10 Hgb 9.8 g/dL (11.7-16.6) L 10/25/22 05:10 Hct 33.7 % (42.0-52.0) L 10/25/22 05:10 MCV 72.9 fl (80-94) L 10/25/22 05:10 MCH 21.2 pg (28.0-34.0) L 10/25/22 05:10 MCHC 29.1 g/dL (30.0-36.0) L 10/25/22 05:10 RDW 17.1 % (12.1-15.1) H 10/25/22 05:10 Plt Count 260 10^3/cmm (130-400) 10/25/22 05:10 MPV 9.6 fL (7.4-10.4) 10/25/22 05:10 Neut % (Auto) 73.9 % 10/25/22 05:10 Lymph % (Auto) 15.5 % 10/25/22 05:10 [place] % (Auto) 8.3 % 10/25/22 05:10 Eos % (Auto) 1.3 % 10/25/22 05:10 Baso % (Auto) 0.2 % 10/25/22 05:10 Neut # (Auto) 3.85 10^3/uL (1.8-7.7) 10/25/22 05:10 Lymph # (Auto) 0.8 10^3/uL (0.8-4.8) 10/25/22 05:10 [place] # (Auto) 0.4 10^3/uL (0.2-0.9) 10/25/22 05:10 Eos # (Auto) 0.1 10^3/uL (0.0-0.8) 10/25/22 05:10 Baso # (Auto) 0.0 10^3/uL (0.0-0.1) 10/25/22 05:10 Nucleated RBC % (auto) 0 % 10/25/22 05:10 Nucleated RBCs # 0.0 /100WBC 10/25/22 05:10 APTT 42.9 SECONDS (23.9-36.7) H 10/23/22 10:20 D-Dimer 0.31 ug/mIFEU (0-0.59) 10/22/22 11:14 Specimen Type Arterial 10/23/22 04:01 Sample Site Radial, right 10/23/22 04:01 ABG pH 7.33 (7.35-7.45) L 10/23/22 04:01 ABG pCO2 39.9 mmHg (35-45) 10/23/22 04:01 ABG pO2 95.2 mmHg (80.0-100.0) 10/23/22 04:01 ABG HCO3 21.1 mmol/L (22-26) L 10/23/22 04:01 ABG O2 Saturation 97.8 10/22/22 08:52 ABG Base Excess -4.4 mmol/L (-2.0-2.0) L 10/23/22 04:01 Roderick Test Pos 10/23/22 04:01 A-a O2 Gradient 14.7 mmHg (5-10) H 10/22/22 08:52 Hematocrit 32.4 % (42-52) L 10/23/22 04:01 Hgb O2 Saturation 96.3 % (95-100) 10/22/22 08:52 Carboxyhemoglobin 0.9 %THgb (0.4-20.1) 10/22/22 08:52 Methemoglobin 0.7 % (0.4-1.5) 10/22/22 08:52 Total Hemoglobin 12.0 g/dL (14-18) L 10/22/22 08:52 Sodium 139.0 mmol/L (131-143) 10/22/22 08:52 Potassium 4.0 mmol/L (3.5-5.0) 10/22/22 08:52 Glucose 119.0 mg/dL (70-115) H 10/22/22 08:52 Ionized Calcium 1.2 mmol/L (1.1-1.4) 10/22/22 08:52 O2 Delivery Device Vent 10/23/22 04:01 FiO2 30.0 % 12/02/22 04:01 Tidal Volume 0.50 10/23/22 04:01 PEEP 6.0 cmH20 10/23/22 04:01 Materials Development Engineer ID Jakob 10/23/22 04:01 Sodium 135 mmol/L (136-145) L 10/25/22 05:10 Potassium 3.7 mmol/L (3.5-5.1) 10/25/22 05:10 Chloride 101 mmol/L (98-107) 10/25/22 05:10 Carbon Dioxide 26 mmol/L (22-29) 10/25/22 05:10 Anion Gap 11.7 (5-19) 10/25/22 05:10 BUN 6 mg/dL (6-20) 10/25/22 05:10 Creatinine 0.8 mg/dL (0.7-1.2) 10/25/22 05:10 GFR Calculation 109.4 mL/min (90-130) 10/25/22 05:10 Glucose 93 mg/dL (65-115) 10/25/22 05:10 Estimat Average Glucose 94 10/23/22 03:42 Hemoglobin A1c 4.9 % (4.0-6.0) 10/23/22 03:42 Calculated Osmolality 277 mOsm/kg (285-295) L 10/25/22 05:10 Lactate 1.2 mmol/L (0.5-2.2) 10/22/22 08:00 Calcium 9.1 mg/dL (8.5-10.5) 10/25/22 05:10 Phosphorus 2.9 mg/dL (2.5-4.5) 10/23/22 03:42 Magnesium 2.9 mg/dL (1.7-2.3) H 10/23/22 03:42 Iron 19 ug/dL (59-158) L 10/22/22 05:27 TIBC 621 mcg/dl 10/22/22 05:27 % Saturation 3.0 % (20-50) L 10/22/22 05:27 Unsat Iron Binding 602 ug/dL (112-347) H 10/22/22 05:27 Total Bilirubin 0.4 mg/dL (0.15-1.2) 10/25/22 05:10 AST 28 U/L (0-40) 10/25/22 05:10 ALT 31 U/L (0-41) 10/25/22 05:10 Alkaline Phosphatase 65 U/L (40-130) 10/25/22 05:10 Creatine Kinase 232 U/L (39-308) 10/23/22 13:35 Troponin T Gen 5 ng/L 59 ng/L (0-15) H 10/23/22 10:20 Troponin T Baseline 192 ng/L (0-15) H* 10/22/22 05:27 Troponin T 120 Minute 201.6 ng/L (0-15) H 10/22/22 07:46 Delta Troponin T 9.6 ABS# (0-10) 10/22/22 07:46 Troponin T Hi Sens 6Hr 211.8 ng/L (0-15) H 10/22/22 11:14 Troponin T Hi Sens 6Hr Delta 19.8 ng/L (0-12) H* 10/22/22 11:14 C-Reactive Protein 33.2 mg/L (0.0-4.9) H 10/23/22 03:42 Total Protein 6.5 g/dL (6.6-8.7) L 10/25/22 05:10 Albumin 3.7 g/dL (3.5-5.2) 10/25/22 05:10 Globulin 2.8 g/dL (1.3-4.6) 10/25/22 05:10 Triglycerides 249 mg/dL (0-150) H 10/23/22 03:42 Cholesterol 141 mg/dL (0-200) 10/23/22 03:42 LDL Cholesterol, Calc 51 mg/dL (50-129) 10/23/22 03:42 Total VLDL Cholesterol 50 mg/dL (0-30) H 10/23/22 03:42 HDL Cholesterol 40 mg/dL (60-100) L 10/23/22 03:42 Cholesterol/HDL Ratio 3.53 mg/dL (1.0-5.00) 10/23/22 03:42 Lipase 31 U/L (13-60) 10/24/22 04:26 Vitamin B12 808 pg/mL (232-1245) 10/22/22 05:27 Folate > 20.0 ng/mL (4.5-32.2) 10/22/22 11:14 Procalcitonin 1.00 ng/mL (0-0.5) H 10/22/22 05:27 TSH 1.85 uIU/mL (0.27-4.20) 10/22/22 05:27 Urine Color Yellow (Yellow) 10/23/22 16:30 Urine Appearance Clear (CLEAR) 10/23/22 16:30 Urine pH 5 (5-7) 10/23/22 16:30 Ur Specific [place] 1.020 (1.005-1.030) 10/23/22 16:30 Urine Protein Trace (Negative) 10/23/22 16:30 Urine Glucose (UA) Norm (Normal) 10/23/22 16:30 Urine Ketones Negative (Negative) 10/23/22 16:30 Urine Blood Neg (Negative) 10/23/22 16:30 Urine Nitrate Negative (Negative) 10/23/22 16:30 Urine Bilirubin Neg (Negative) 10/23/22 16:30 Urine Urobilinogen Norm mg/dL (Negative) 10/23/22 16:30 Ur Leukocyte Esterase 1+ (Negative) H 10/23/22 16:30 Urine RBC 0-4 /hpf (0-2) H 10/23/22 16:30 Urine WBC 0-4 /hpf (0-5) H 10/23/22 16:30 Ur Eosinophil Smear Not Reportable 10/23/22 16:30 Ur Squamous Epith Cells 0-4 /hpf (0-5) H 10/23/22 16:30 Uric Acid Crystals 2 /hpf 10/23/22 16:30 Amorphous Sediment Not Reportable 10/23/22 16:30 Urine Bacteria None /hpf (NONE) 10/23/22 16:30 Urine Eosinophils No eosinophils seen 10/23/22 16:30 Ur Random Microalbumin 10 ug/dL (0-20) 10/23/22 16:30 Ur Random Sodium 20 mmol/L 10/22/22 09:30 Ur Random Potassium 57 mmol/L 10/22/22 09:30 Ur Random Chloride < 10 mmol/L 10/22/22 09:30 Urine Creatinine 153 mg/dL (39-259) 10/23/22 16:30 Urine Creatinine 153 mg/dL (39-259) 10/23/22 16:30 Microalb/Creat Ratio 65 mg/dL (0-20) H 10/23/22 16:30 Salicylates < 0.3 mg/dL (3-10) L 10/22/22 02:04 Urine Opiates Screen Negative ng/mL (Negative) 10/22/22 09:30 Acetaminophen < 5.0 ug/mL (10-30) L 10/22/22 02:04 Ur Barbiturates Screen Negative ng/mL (Negative) 10/22/22 09:30 Ur Phencyclidine Scrn Negative ng/mL (Negative) 10/22/22 09:30 Ur Amphetamines Screen Negative ng/mL (Negative) 10/22/22 09:30 U Benzodiazepines Scrn Positive ng/mL (Negative) H 10/22/22 09:30 Urine Cocaine Screen Negative ng/mL (Negative) 10/22/22 09:30 U Marijuana (THC) Screen Positive ng/mL (Negative) H 10/22/22 09:30 Ethyl Alcohol < 10 mg/dL (0-10) 10/22/22 02:04 Coronavirus 229E (PCR) Not detected (NOT DETECT) 10/22/22 14:35 SARS-CoV-2 (PCR) Not detected (NOT DETECT) 10/22/22 14:35 Vitals Last Vital Signs Temp 98.1 F 10/25/22 13:28 Pulse 72 10/25/22 13:28 Resp 16 10/25/22 13:28 BP 134/75 10/25/22 13:28 Pulse Ox 97 10/25/22 13:28 O2 Del Method 10/25/22 12:00 O2 Flow Rate 2 10/23/22 13:35 FiO2 30 10/23/22 10:30 Discharge Plan Discharge Patient Disposition: Home Condition: Stable Prescriptions: New aspirin 81 mg Tablet,Delayed Release (Dr/Ec) 81 mg PO DAILY Qty: 90 0RF Metamucil 0.4 gram capsule 0.4 g PO BID Qty: 90 0RF ferrous sulfate 325 mg (65 mg iron) tablet 325 mg PO EVERY OTHER DAY Qty: 90 0RF cefdinir 300 mg capsule 300 mg PO BID 3 Days Qty: 6 0RF Continued clonidine HCl 0.1 mg tablet 0.1 mg PO Q6H PRN (Reason: alcohol withdrawal) Qty: 30 3RF atenolol 25 mg tablet 25 mg PO BID Qty: 60 3RF Changed pantoprazole 40 mg tablet,delayed release (DR/EC) 40 mg PO BIDWMEAL Qty: 42 3RF Discharge Orders: Discharge Order (Routine); Ordered 10/25/22 Ordered By: Jerardo Seaman Other Ambulatory Orders: Sestamibi Stress Test Request (Routine) Timeframe: 3 Days Facility: [facility] - Location: [facility] Ordered By: Jerardo Seaman Referrals: Angel Boston MD [Physician] - 4-7 days (Please call Wednesday to schedule your follow up appointment with Dr. Boston.) Discharge Diet: Cardiac Discharge Activity: Increase activity as tolerated and As per PT/OT instructions Patient Instructions: Cefdinir (By mouth), Hemorrhoids (GEN), Acute Kidney Injury (GEN), Iron Deficiency Anemia (GEN), Alcohol Withdrawal (GEN), Hypertension (GEN), Alcohol Dependence (GEN) Activity Restrictions/Additional Instructions: Please abstain from any alcohol as continued use may again risk withdrawal, seizure, as well as other complications of alcohol use. Follow-up with Rosa Elena Farnsworth for assistance with quitting. Please complete stress test, follow-up with your primary doctor for results or additional assessment for possible underlying coronary disease after finding of elevated troponins. Please follow-up with your primary doctor with regards to iron deficiency anemia which will need further evaluation with endoscopy both upper and lower to exclude any possible dangerous causes other than hemorrhoids once you recovered from acute illness. Maintain diet with lots of fruits and vegetables, add fiber to meals, stay hydrated, avoid constipation. Maintain orthostatic precautions as discussed. Elevate L hand as discussed. In case of any severe swelling, numbness or weakness seek medical attention immediately. Discharge Attestations Time Spent in Discharge Care*: greater than 30 min Quality Metrics Clinical Quality Measures [ No reported AMI, CVA or VTE this stay] Coding Level of Care Code Acute Chg FW DC note Diagnoses Orthostasis I95.1 Alcohol withdrawal seizure F10.939; R56.9 Respiratory failure J96.90 Acute kidney injury N17.9 Elevated troponin R77.8 Hypertension I10 Alcohol use Z72.89 Abdominal pain R10.9
[2022-10-26 12:50] LABS: Creatinine, Random Urine 146 mg/dL (20-320); Protein, Total, Random 41 mg/dL (5-25); Protein/Creatinine Ratio 0.281 (0.025-0.148); Protein/Creatinine Ratio 281 mg/g creat (25-148)
[2022-10-27 15:28] LABS: Albumin,Urine Random 53 %; Alpha-1-Globulins Urine Random 10 %; Alpha-2-Globulins Urine Random 10 %; Beta-Globulin,Urine Random 16 %; Gamma Globulin,Urine Random 12 %
== END 2022-10-25 14:17 | disposition home or self-care (01) | DRG 896 ==
LOC: ER 02:29 → ICU 05:20 → MEDSURG 10-24 16:50
PROVIDERS: Student in an Organized Health Care Education/Training Program; Admitting Provider Internal Medicine; Emergency Provider Emergency Medicine; Visit Provider Internal Medicine
DX: F10.139 Alcohol abuse with withdrawal, unspecified (principal); J69.0 Pneumonitis due to inhalation of food and vomit; I48.92 Unspecified atrial flutter; E87.20 Acidosis, unspecified; N17.9 Acute kidney failure, unspecified; F12.90 Cannabis use, unspecified, uncomplicated; K29.20 Alcoholic gastritis without bleeding; I10 Essential (primary) hypertension; E86.0 Dehydration; I95.1 Orthostatic hypotension; D50.9 Iron deficiency anemia, unspecified
CPT/HCPCS: 36415; 36600; 51702; 70450; 71045; 74176; 80051; 80053; 80061; 80306; 80307; 81001; 82044; 82330; 82436; 82550; 82570; 82607; 82746; 82803; 82805; 83036; 83540; 83550; 83605; 83690; 83735; 84100; 84133; 84145; 84156; 84166; 84300; 84443; 84484; 85025; 85378; 85730; 85999; 86140; 86403; 87040; 87070; 87205; 87449; 87635; 87641; 92523; 92610; 93005; 93306; 94002; 94003; 94640; 94799; 96365; 96366; 96375; 97161; 97164; 99291; 99292; C9113; J1644; J2060; J2405; J2543; J2704; J3010; J3411; J3490; J7030; J7042; J7050; J7070; J7626

== ENCOUNTER → 2022-11-02 14:42 | Outpatient (BNVA) | payer MEDICAID, SELFPAY | PROVIDERS: PCP Family Medicine; Visit Provider Family Medicine | DX: R30.0 Dysuria (principal); R77.8 Other specified abnormalities of plasma proteins; R07.9 Chest pain, unspecified; I10 Essential (primary) hypertension; D50.9 Iron deficiency anemia, unspecified; K64.4 Residual hemorrhoidal skin tags; Z09 Encounter for follow-up examination after completed treatment for conditions other than malignant neoplasm; R10.9 Unspecified abdominal pain; F10.939 Alcohol use, unspecified with withdrawal, unspecified; R56.9 Unspecified convulsions; F41.9 Anxiety disorder, unspecified | CPT/HCPCS: 81000 ==

== ENCOUNTER 2022-11-10 22:03 | Observation (INO) | payer MEDICAID, SELFPAY ==
[2022-11-10 22:07] VITALS: BP 160/116; PULSE 74; RESP 18; TEMP 35.5; O2SAT 98; BMI 23.7
--- NOTE | 2022-11-10 22:39 | W.ED.ABDPA2 ---
HPI - Abdominal Pain General: Chief Complaint: Abdominal Pain Stated Complaint: Muscle Cramps, Legs,ADB\Neck Time Seen by Provider: 11/10/22 22:27 Source: patient Mode of arrival: ambulatory Limitations: no limitations History of Present Illness: 37-year-old male states he has had abdominal pain for years he states he has had gastritis he states over last 2 weeks has had worsening epigastric abdominal pain that is a sharp pain in nature he denies any worsening proving factors states pain is currently 7 out of 10 has had nausea no vomiting no diarrhea. Associated Symptoms: Denies chills, dysuria and fever(s) Review of Systems Const: Denies: fever(s), chills, body aches or change in appetite Eyes: Denies: blurry vision or eye discomfort ENMT: Denies: throat pain or dental pain Card: Denies: chest pain Resp: Denies: dyspnea GI: Reports: abdominal pain : Denies: dysuria Musc: Denies: neck pain or back pain Skin/Breast: Denies: rash Neuro: Denies: headache(s) Psych: Denies: depression Izaiah/Lymph: Denies: easy bruising All/Imm: Denies: urticaria PFSH ED PFSH: Medical History Alcohol withdrawal seizure Gastritis Hematochezia Hypertension Surgical History No pertinent past surgical history Family History Denies family history of CAD (coronary artery disease) Social History Smoking and tobacco status: smoker, details unknown Alcohol intake: current Alcohol intake frequency: 3 or more drinks per day Alcohol type: beer Counseling given: Yes Physical Exam Const: COMMON NORMALS: no acute distress, patient oriented x3 and healthy appearing HENMT: COMMON NORMALS: normocephalic and atraumatic HEAD & SCALP: normocephalic and atraumatic Eye: COMMON NORMALS: Equal, round and reactive pupils present and EOMs intact bilaterally PUPIL: Yes Equal, round and reactive pupils present Neck/C-Spine: COMMON NORMALS: full ROM and supple Chest: COMMONS NORMALS: normal inspection of the chest and normal palpation of entire chest wall Resp: COMMON NORMALS: normal respiratory effort, No retractions, No use of accessory muscles and clear to auscultation bilaterally AUSCULTATION: clear to auscultation bilaterally Cardio: COMMON NORMALS: regular rate, regular rhythm and No murmurs present (Cardio) RATE: regular rate RHYTHM: regular rhythm GI: COMMON NORMALS: Normal to inspection, nondistended, normoactive bowel sounds present, Soft to palpation, non-tender and no masses PALPATION: Yes Soft to palpation Extremity: COMMON NORMALS: normal to inspection and full ROM Neuro: COMMON NORMALS: patient oriented x3, moves all extremities and no focal motor deficits Psych: COMMON NORMALS: mental status grossly normal, Normal thought process present and cooperative THOUGHT PROCESS: Normal thought process present Skin: COMMON NORMALS: no rashes or lesions noted and no wounds GENERAL SKIN EXAM: no rashes or lesions noted Course Vital Signs: Vital signs: Vital Signs Temperature 96 F L 11/10/22 22:07 Pulse Rate 74 11/10/22 22:07 Respiratory Rate 18 11/10/22 22:07 Blood Pressure 160/116 11/10/22 22:07 Pulse Oximetry 98 11/10/22 22:07 Oxygen Delivery Me thod 11/10/22 22:07 MDM - Abdominal Pain Medical Decision Making Patient presents here originally with abdominal pain he did have an elevated white count so CT was performed CT was performed before his creatinine came back because he is young with no history of kidney disease CT scan was normal he does have acute kidney injury has had some nausea unsure what is causing his acute kidney injury likely dehydration patient given IV fluids here his potassium is normal I spoke to the hospitalist will admit Lab Data 11/10/22 22:48 11/10/22 22:48 Labs/Radiology: Radiology Impressions Abdomen/Pelvis CT 11/10/22 23:18 IMPRESSION: No acute findings. Laboratory Results WBC 16.1 10^3/uL (4.0-10.0) H 11/10/22 22:48 RBC 7.04 10^6/uL (4.1-5.3) H 11/10/22 22:48 Hgb 15.3 g/dL (11.7-16.6) 11/10/22 22:48 Hct 49.5 % (42.0-52.0) 11/10/22 22:48 MCV 70.3 fl (80-94) L 11/10/22 22:48 MCH 21.7 pg (28.0-34.0) L 11/10/22 22:48 MCHC 30.9 g/dL (30.0-36.0) 11/10/22 22:48 RDW 19.3 % (12.1-15.1) H 11/10/22 22:48 Plt Count 823 10^3/cmm (130-400) H 11/10/22 22:48 MPV 10.2 fL (7.4-10.4) 11/10/22 22:48 Neut % (Auto) 91.6 % 11/10/22 22:48 Lymph % (Auto) 4.1 % 11/10/22 22:48 [place] % (Auto) 2.9 % 11/10/22 22:48 Eos % (Auto) 0.0 % 11/10/22 22:48 Baso % (Auto) 0.2 % 11/10/22 22:48 Neut # (Auto) 14.72 10^3/uL (1.8-7.7) H 11/10/22 22:48 Lymph # (Auto) 0.7 10^3/uL (0.8-4.8) L 11/10/22 22:48 [place] # (Auto) 0.5 10^3/uL (0.2-0.9) 11/10/22 22:48 Eos # (Auto) 0.0 10^3/uL (0.0-0.8) 11/10/22 22:48 Baso # (Auto) 0.0 10^3/uL (0.0-0.1) 11/10/22 22:48 Nucleated RBC % (auto) 0 % 11/10/22 22:48 Nucleated RBCs # 0.0 /100WBC 11/10/22 22:48 Sodium 134 mmol/L (136-145) L 11/10/22 22:48 Potassium 4.8 mmol/L (3.5-5.1) 11/10/22 22:48 Chloride 92 mmol/L (98-107) L 11/10/22 22:48 Carbon Dioxide 18 mmol/L (22-29) L 11/10/22 22:48 Anion Gap 28.8 (5-19) H 11/10/22 22:48 BUN 21 mg/dL (6-20) H 11/10/22 22:48 Creatinine 3.2 mg/dL (0.7-1.2) H 11/10/22 22:48 GFR Calculation 22.1 mL/min (90-130) L 11/10/22 22:48 Glucose 182 mg/dL (65-115) H 11/10/22 22:48 Calculated Osmolality 286 mOsm/kg (285-295) 11/10/22 22:48 Lactate 2.1 mmol/L (0.5-2.2) 11/11/22 00:13 Calcium 12.5 mg/dL (8.5-10.5) H 11/10/22 22:48 Magnesium 3.1 mg/dL (1.7-2.3) H 11/10/22 22:48 Total Bilirubin 0.4 mg/dL (0.15-1.2) 11/10/22 22:48 AST 26 U/L (0-40) 11/10/22 22:48 ALT 49 U/L (0-41) H 11/10/22 22:48 Alkaline Phosphatase 126 U/L (40-130) 11/10/22 22:48 Total Protein 10.4 g/dL (6.6-8.7) H 11/10/22 22:48 Albumin 7.1 g/dL (3.5-5.2) H 11/10/22 22:48 Globulin 3.3 g/dL (1.3-4.6) 11/10/22 22:48 Lipase 35 U/L (13-60) 11/10/22 22:48 Ethyl Alcohol < 10 mg/dL (0-10) 11/10/22 22:48 Serum Ketones Negative (Negative) 11/10/22 22:48 Discharge Plan Discharge Condition: Stable Prescriptions: No Action sucralfate [Carafate] 1 gram tablet 1 g PO BID Qty: 60 1RF citalopram 10 mg tablet 10 mg PO DAILY Qty: 30 1RF clonidine HCl 0.1 mg tablet 0.1 mg PO Q6H PRN (Reason: alcohol withdrawal) Qty: 30 3RF atenolol 25 mg tablet 25 mg PO BID Qty: 60 3RF pantoprazole 40 mg tablet,delayed release (DR/EC) 40 mg PO BIDWMEAL Qty: 42 3RF aspirin 81 mg Tablet,Delayed Release (Dr/Ec) 81 mg PO DAILY Qty: 90 0RF Metamucil 0.4 gram capsule 0.4 g PO BID Qty: 90 0RF ferrous sulfate 325 mg (65 mg iron) tablet 325 mg PO EVERY OTHER DAY Qty: 90 0RF Referrals: Angel Boston MD [Primary Care Provider] - Coding Level of Care Code ED Mounter Automatic for Chg Fwd Exam Comprehensive
[2022-11-10] MEDS: ondansetron 2 mg/ML SDV 2 mL 4 MG IVP (22:40)
[2022-11-10] MEDS: sodium chloride 0.9% 1,000 ML 999 ML IV (22:40)
[2022-11-10] MEDS: lidocaine 2% viscous 15 ML, aluminum-mag hydrox-simethicon 30 ML, sucralfate oral liq 1 GM PO (22:40)
[2022-11-10 23:11] LABS: Basophils % 0.2 %; Hematocrit 49.5 % (42.0-52.0); Hemoglobin 15.3 g/dL (11.7-16.6); Lymphocytes # 0.7 10^3/uL (0.8-4.8); Lymphocytes % 4.1 %; Mean Corpuscular HGB Conc 30.9 g/dL (30.0-36.0); Mean Corpuscular Hemoglobin 21.7 pg (28.0-34.0); Mean Corpuscular Volume 70.3 fl (80-94); Mean Platelet Volume 10.2 fL (7.4-10.4); Monocytes # 0.5 10^3/uL (0.2-0.9); Monocytes % 2.9 %; Neutrophils # 14.72 10^3/uL (1.8-7.7); Neutrophils % 91.6 %; Nucleated Red Blood Cells % 0 %; Platelet Count 823 10^3/cmm (130-400); Red Blood Count 7.04 10^6/uL (4.1-5.3); Red Cell Distribution Width 19.3 % (12.1-15.1); White Blood Count 16.1 10^3/uL (4.0-10.0)
[2022-11-10 23:14] LABS: Alanine Aminotransferase 49 U/L (0-41); Alkaline Phosphatase 126 U/L (40-130); Anion Gap 28.8 (5-19); Aspartate Amino Transferase 26 U/L (0-40); Blood Urea Nitrogen 21 mg/dL (6-20); Carbon Dioxide 18 mmol/L (22-29); Chloride 92 mmol/L (98-107); Glomerular Filtration Rate 22.1 mL/min (90-130); Glucose 182 mg/dL (65-115); Lipase 35 U/L (13-60); Magnesium 3.1 mg/dL (1.7-2.3); Osmolality Calculated 286 mOsm/kg (285-295); Potassium 4.8 mmol/L (3.5-5.1); Sodium 134 mmol/L (136-145); Total Bilirubin 0.4 mg/dL (0.15-1.2)
[2022-11-10 23:15] VITALS: BP 158/104; PULSE 58; RESP 18; O2SAT 97
--- NOTE | 2022-11-10 23:18 | CTR_ITS ---
PROCEDURE INFORMATION: Exam: CT Abdomen And Pelvis With Contrast Exam date and time: 11/10/2022 11:42 PM Age: 37 years old Clinical indication: Abdominal pain; Patient HX: C/O worsening epigastric pain x 2 weeks. History of gastritis. ; Additional info: Abd pain TECHNIQUE: Imaging protocol: Computed tomography of the abdomen and pelvis with contrast. Radiation optimization: All CT scans at this facility use at least one of these dose optimization techniques: automated exposure control; mA and/or kV adjustment per patient size (includes targeted exams where dose is matched to clinical indication); or iterative reconstruction. Contrast material: OMNI 350; Contrast volume: 100 ml; Contrast route: INTRAVENOUS (IV); COMPARISON: CT abdomen pelvis wo con [id number] 10/22/2022 2:58 AM RADIATION DOSE METRICS: Total DLP (mGy-cm): 433.03 FINDINGS: Liver: Normal. No mass. Gallbladder and bile ducts: Normal. No calcified stones. No ductal dilation. Pancreas: Normal. No ductal dilation. Spleen: Normal. No splenomegaly. Adrenal glands: Normal. No mass. Kidneys and ureters: Normal. No hydronephrosis. Stomach and bowel: Unremarkable. No obstruction. No mucosal thickening. Appendix: No evidence of appendicitis. Intraperitoneal space: Unremarkable. No free air. No significant fluid collection. Vasculature: One or more calcified pelvic phleboliths. Lymph nodes: Unremarkable. No enlarged lymph nodes. Urinary bladder: Unremarkable as visualized. Reproductive: Unremarkable as visualized. Bones/joints: Unremarkable. No acute fracture. Soft tissues: Unremarkable. CT/CT abdomen pelvis w con* [id number] IMPRESSION: No acute findings.
[2022-11-10] MEDS: midazolam 1 mg/mL INJ 2 mL IVP (23:39)
[2022-11-10 23:45] VITALS: BP 164/95; PULSE 57; RESP 18; O2SAT 97
[2022-11-10] MEDS: iohexol 350 mg/mL 500 mL Btl (per mL) IV (23:45)
[2022-11-10 23:49] LABS: Globulin 3.3 g/dL (1.3-4.6)
[2022-11-11] VITALS (10 sets, daily range): BP systolic 115–179; BP diastolic 69–96; PULSE 58–72; RESP 16–22; TEMP 36.8–37.2; O2SAT 94–97
[2022-11-11 00:01] LABS: Albumin Level 7.1 g/dL (3.5-5.2); Calcium 12.5 mg/dL (8.5-10.5); Total Protein 10.4 g/dL (6.6-8.7)
[2022-11-11] MEDS: sodium chloride 0.9% 1,000 ML 999 ML IV (00:01)
[2022-11-11 00:02] LABS: Alcohol Level < 10 mg/dL (0-10)
[2022-11-11 00:28] LABS: Ketone (Acetest) Serum Negative (Negative)
[2022-11-11 00:33] LABS: Lactate (Lactic Acid level) 2.1 mmol/L (0.5-2.2)
--- NOTE | 2022-11-11 00:37 | ECG_ITS ---
[facility] Test Date: 2022-11-11 Pat Name: Pritesh Holbrook Department: Room: Gender: Male As[employer]over: : 1985 Requested By: Claire Sagastume Order Number: [id number] Cartwright MD: Savi Francois M.D. Measurements Intervals [place] Rate: 56 P: 61 [place]: 140 QRS: 49 QRSD: 100 T: 48 QT: 422 QTc: 410 Interpretive Statements SINUS BRADYCARDIA POSSIBLE LEFT ATRIAL ENLARGEMENT [-0.1mV P-WAVE IN V1/V2] Compared to ECG 10/22/2022 09:57:19 Sinus rhythm no longer present Short [place] interval no longer present ST (T wave) deviation no longer present Early repolarization no longer present Electronically Signed On 11-11-2022 10:12:33 TRANSFORMATION ANALYST by Savi Francois M.D. [id number]
[2022-11-11] MEDS: sodium chloride 0.9% 1,000 ML 125 ML IV ×2 (02:50→10:08)
--- NOTE | 2022-11-11 03:09 | PM.HP ---
Providers/Chief Complaint Admitting Physician: Angel Luis Flannery MD Primary Care Provider: Angel Boston MD Chief Complaint: Muscle Cramps, Legs,ADB\Neck History of Present Illness Pritesh Holbrook is a 37 year old male who was recently discharged from the hospital on 10/25 after management of alcohol-related gastritis, pneumonia MEHUL, iron deficiency anemia he was asked to follow-up outpatient for endoscopy presented to the hospital with chief complaint of numbness of his upper extremities, loose stools and hot flashes. Patient is stating that he has quit drinking alcohol around , he does marijuana on a daily basis, smokes 1 pack/day, no history of coronary disease, he is due for endoscopy, he has been noticing bright bleed per rectum because of history of hemorrhoids. Today he decided to come to the hospital when he noticed numbness of his upper extremities at the time of defecation, he did not experience any vasovagal symptoms such as syncope, however he is endorsing profuse sweating, weakness and lethargy. He has never experienced these kind of symptoms before. He went for [employer] hunting this fall as well. No tick bites. He has not experienced any emesis he actually induces vomiting to relieve his gastric pain. Patient is stating that his abdominal pain is chronic which he is dealing with for years that is why he is using marijuana. In the ER he was diagnosed with severe leukocytosis however he is afebrile no sign of sepsis, CT abdomen pelvis unremarkable, he has MEHUL, Hypercalcemia noted hypomagnesemia, requested vitamin D Patient was started on IV fluids, hemoglobin stable I requested drug screen Review of Systems Const: Reports: chills, body aches and fatigue Eyes: Denies: change in vision ENMT: Denies: throat pain Card: Denies: chest pain Resp: Denies: dyspnea GI: Reports: abdominal pain and nausea : Denies: flank pain Musc: Denies: neck pain Skin/Breast: Denies: rash Neuro: Denies: headache(s) Psych: Denies: anxiety Endo: Denies: polyuria Izaiah/Lymph: Denies: easy bruising All/Imm: Denies: urticaria Medications/Allergies Home Medications Medication Instructions Recorded Confirmed Last Taken Type atenolol 25 mg tablet 25 mg PO BID #60 tabs 07/21/22 11/11/22 11/10/22 20:00 Rx clonidine HCl 0.1 mg tablet 0.1 mg PO Q6H PRN alcohol 07/21/22 11/11/22 Unknown Rx withdrawal #30 tabs aspirin 81 mg tablet,delayed 81 mg PO DAILY #90 tabs 10/24/22 11/11/22 11/10/22 08:00 Rx release ferrous sulfate 325 mg (65 mg 325 mg PO EVERY OTHER DAY #90 tabs 10/24/22 11/11/22 11/10/22 08:00 Rx iron) tablet pantoprazole 40 mg tablet,delayed 40 mg PO BIDWMEAL #42 tabs 10/24/22 11/11/22 11/10/22 18:00 Rx release psyllium husk 0.4 gram capsule 0.4 g PO BID #90 caps 10/24/22 11/11/22 11/10/22 20:00 Rx (Metamucil) citalopram 10 mg tablet 10 mg PO DAILY #30 tabs 11/02/22 11/11/22 11/10/22 08:00 Rx sucralfate 1 gram tablet (Carafate) 1 g PO BID #60 tabs 11/02/22 11/11/22 11/10/22 20:00 Rx Allergies Allergy/AdvReac Type Severity Reaction Status Date / Time No Known Allergies Allergy Verified 10/22/22 02:13 PFSH Acute PFSH: Medical History Alcohol withdrawal seizure Gastritis Hematochezia Hypertension Surgical History No pertinent past surgical history Family History Denies family history of CAD (coronary artery disease) Social History Smoking and tobacco status: smoker, details unknown Alcohol intake: current Alcohol intake frequency: 3 or more drinks per day Alcohol type: beer Counseling given: Yes Vitals/I&O/Wt Last Vital Signs Temp 96 F L 11/10/22 22:07 Pulse 61 11/11/22 03:00 Resp 18 11/11/22 03:00 BP 154/80 11/11/22 03:00 Pulse Ox 96 11/11/22 03:00 O2 Del Method 11/10/22 22:07 11/10/22 11/10/22 11/11/22 14:59 22:59 06:59 Intake Total 1999 Balance 1999 Weight last 48 hrs Weight 81.647 kg Physical Exam Narrative: Patient is laying supine No active chest pain or shortness of breath Doing well on room air No abdominal pain Hyperactive bowel sounds No active signs of alcohol withdrawal Clinically looks euvolemic at the bedside Nonfocal neuro exam EOMI, PERRLA Doing well on room air No joint swelling S1, S2 Data 11/10/22 22:48 11/10/22 22:48 A&P Assessment and plan (1) External hemorrhoid: (2) Anemia, iron deficiency: (3) Acute kidney injury: Plan Dehydration related MEHUL Improving with IV fluids CT abdomen pelvis did not show any kidney stones or hydronephrosis Profuse diaphoresis, abdominal pain and diarrhea CT abdomen pelvis is unremarkable, My suspicion is low for carcinoid syndrome I do believe patient is suffering from autonomic dysfunction related to alcohol abuse patient has been drinking alcohol for last 10 years and recently quit around [facility] We will keep him on thiamine and folic acid I do not see any signs of stroke Event for hunting, no tick bites, he is afebrile leukocytosis is leukemoid stress reaction, I would not add doxycycline at this point Iron deficiency anemia hemoglobin stable, no hemodynamic instability Endoscopy could be pursued outpatient Full code Patient might be able to go home once creatinine started trending down Cardiac diet Check for refeeding syndrome, phosphorus, mag level, vitamin D requested Hypercalcemia most likely is related to dehydration Attestations Medical Necessity Statement*: Anticipating discharge within 48 hours Time Spent in Patient Care: 40 Coding Level of Care Code Acute [employer] Diagnoses External hemorrhoid K64.4 Anemia, iron deficiency D50.9 Acute kidney injury N17.9
[2022-11-11 03:45] LABS: Procalcitonin 0.24 ng/mL (0-0.5)
[2022-11-11] MEDS: heparin 5,000 unit/mL INJ 1 mL 5000 UNIT SUBCUT (04:18)
[2022-11-11] MEDS: morphine IR 15 mg Tablet PO (04:18)
[2022-11-11] MEDS: ondansetron 2 mg/ML SDV 2 mL 4 MG IVP (04:18)
[2022-11-11 04:52] LABS: Basophils % 0.1 %; Hematocrit 40.9 % (42.0-52.0); Hemoglobin 12.5 g/dL (11.7-16.6); Lymphocytes % 8.2 %; Mean Corpuscular HGB Conc 30.6 g/dL (30.0-36.0); Mean Corpuscular Volume 71.9 fl (80-94); Mean Platelet Volume 9.8 fL (7.4-10.4); Monocytes # 0.8 10^3/uL (0.2-0.9); Monocytes % 6.7 %; Neutrophils # 10.36 10^3/uL (1.8-7.7); Neutrophils % 84.2 %; Nucleated Red Blood Cells % 0 %; Platelet Count 595 10^3/cmm (130-400); Red Blood Count 5.69 10^6/uL (4.1-5.3); Red Cell Distribution Width 18.4 % (12.1-15.1); White Blood Count 12.3 10^3/uL (4.0-10.0)
[2022-11-11 05:20] LABS: Anion Gap 19.3 (5-19); Blood Urea Nitrogen 22 mg/dL (6-20); C Reactive Protein 3.1 mg/L (0.0-4.9); Calcium 9.9 mg/dL (8.5-10.5); Carbon Dioxide 20 mmol/L (22-29); Chloride 99 mmol/L (98-107); Glucose 130 mg/dL (65-115); Magnesium 2.6 mg/dL (1.7-2.3); Osmolality Calculated 283 mOsm/kg (285-295); Phosphorus 4.9 mg/dL (2.5-4.5); Potassium 4.3 mmol/L (3.5-5.1); Sodium 134 mmol/L (136-145)
[2022-11-11 05:44] LABS: Thyroid Stimulating Hormone 1.86 uIU/mL (0.27-4.20)
[2022-11-11 06:12] LABS: 25 Hydroxy Vitamin D 104 ng/mL (30-100)
[2022-11-11 07:39] LABS: Amphetamines Screen Urine Negative (Negative); Barbiturates Screen Urine Negative (Negative); Benzodiazepines Screen Urine Negative (Negative); Cocaine Screen Urine Negative (Negative); Opiate Screen Urine Positive (Negative); PCP Screen Urine Negative (Negative); THC Screen Urine Positive (Negative)
[2022-11-11] MEDS: pantoprazole DR 40 mg Tablet PO (07:54)
[2022-11-11 07:57] LABS: Creatine Phosphokinase 155 U/L (39-308)
[2022-11-11] MEDS: folic acid 1 mg Tablet PO (09:19)
[2022-11-11] MEDS: sucralfate 1 gm Tablet PO (09:19)
[2022-11-11] MEDS: atenolol 50 mg Tablet 25 MG PO (09:19)
--- NOTE | 2022-11-11 10:36 | PM.DCS ---
Discharge Providers Date of Admission: 11/11/22 03:55 Date of Discharge: November 11, 2022 Attending Provider at Admission: Angel Luis Flannery MD Attending Provider at Discharge: Zelalem Osorio MD Primary Care Provider: Angel Boston MD Diagnoses at Discharge Discharge Diagnosis (1) External hemorrhoid: Status: Acute (2) Anemia, iron deficiency: Status: Acute (3) Acute kidney injury: Status: Acute Reason for Visit Reason for Visit: Muscle Cramps, Legs,ADB\Neck Hospital Course Hospital Course Pritesh presented the hospital with nausea, abdominal discomfort, and feelings that he might faint. He had previously been admitted for alcohol withdrawal and seizure where he required intubation. This was during hospital stay October 22. At that time he was intubated, had atrial flutter, aspiration pneumonitis, and concern of alcohol related gastritis and iron deficiency anemia was identified. Since that time he reports no use of alcohol. He has been using marijuana. He has been nauseated at times. During this hospitalization acute kidney injury was identified, with creatinine of 3.2. Urinalysis previously was benign. CK was not elevated. With IV fluids, this quickly corrected to 2.0. An abdominal pelvis CT had been done on admission, demonstrating no obvious urinary obstruction and was essentially normal. With him able to take p.o., rapid improvement of creatinine was thought he could be discharged home. Referral for potential EGD and colonoscopy was made with Dr. Beard. He will see his primary care provider next week with a BMP. He was encouraged not to take aspirin, to stop marijuana, do not drink any alcohol, and reduce caffeine. He is to return for any concerns. Physical Exam Narrative: General exam no distress Neck is supple no lymphadenopathy thyromegaly Cardiovascular regular rate and rhythm without murmur Lungs clear Abdomen is soft nontender positive bowel sounds Extremities no cyanosis clubbing or edema, cap refill brisk Skin no rash Discharge Data Studies Completed and Pending Completed Studies During Hospitalization Category Date Time Status CT abdomen pelvis w con* [id number] Stat Cat Scan 11/10/22 23:18 Completed Radiology Impressions Abdomen/Pelvis CT 11/10/22 23:18 IMPRESSION: No acute findings. Laboratory Results WBC 12.3 10^3/uL (4.0-10.0) H 11/11/22 04:29 RBC 5.69 10^6/uL (4.1-5.3) H 11/11/22 04:29 Hgb 12.5 g/dL (11.7-16.6) 11/11/22 04:29 Hct 40.9 % (42.0-52.0) L 11/11/22 04:29 MCV 71.9 fl (80-94) L 11/11/22 04:29 MCH 22.0 pg (28.0-34.0) L 11/11/22 04:29 MCHC 30.6 g/dL (30.0-36.0) 11/11/22 04:29 RDW 18.4 % (12.1-15.1) H 11/11/22 04:29 Plt Count 595 10^3/cmm (130-400) H 11/11/22 04:29 MPV 9.8 fL (7.4-10.4) 11/11/22 04:29 Neut % (Auto) 84.2 % 11/11/22 04:29 Lymph % (Auto) 8.2 % 11/11/22 04:29 [place] % (Auto) 6.7 % 11/11/22 04:29 Eos % (Auto) 0.0 % 11/11/22 04:29 Baso % (Auto) 0.1 % 11/11/22 04:29 Neut # (Auto) 10.36 10^3/uL (1.8-7.7) H 11/11/22 04:29 Lymph # (Auto) 1.0 10^3/uL (0.8-4.8) 11/11/22 04:29 [place] # (Auto) 0.8 10^3/uL (0.2-0.9) 11/11/22 04:29 Eos # (Auto) 0.0 10^3/uL (0.0-0.8) 11/11/22 04:29 Baso # (Auto) 0.0 10^3/uL (0.0-0.1) 11/11/22 04:29 Nucleated RBC % (auto) 0 % 11/11/22 04:29 Nucleated RBCs # 0.0 /100WBC 11/11/22 04:29 Sodium 134 mmol/L (136-145) L 11/11/22 04:29 Potassium 4.3 mmol/L (3.5-5.1) 11/11/22 04:29 Chloride 99 mmol/L (98-107) 11/11/22 04:29 Carbon Dioxide 20 mmol/L (22-29) L 11/11/22 04:29 Anion Gap 19.3 (5-19) H 11/11/22 04:29 BUN 22 mg/dL (6-20) H 11/11/22 04:29 Creatinine 2.0 mg/dL (0.7-1.2) H 11/11/22 04:29 GFR Calculation 38.0 mL/min (90-130) L 11/11/22 04:29 Glucose 130 mg/dL (65-115) H 11/11/22 04:29 Calculated Osmolality 283 mOsm/kg (285-295) L 11/11/22 04:29 Lactate 2.1 mmol/L (0.5-2.2) 11/11/22 00:13 Calcium 9.9 mg/dL (8.5-10.5) 11/11/22 04:29 Phosphorus 4.9 mg/dL (2.5-4.5) H 11/11/22 04:29 Magnesium 2.6 mg/dL (1.7-2.3) H 11/11/22 04:29 Total Bilirubin 0.4 mg/dL (0.15-1.2) 11/10/22 22:48 AST 26 U/L (0-40) 11/10/22 22:48 ALT 49 U/L (0-41) H 11/10/22 22:48 Alkaline Phosphatase 126 U/L (40-130) 11/10/22 22:48 Creatine Kinase 155 U/L (39-308) 11/11/22 04:29 C-Reactive Protein 3.1 mg/L (0.0-4.9) 11/11/22 04:29 Total Protein 10.4 g/dL (6.6-8.7) H 11/10/22 22:48 Albumin 7.1 g/dL (3.5-5.2) H 11/10/22 22:48 Globulin 3.3 g/dL (1.3-4.6) 11/10/22 22:48 Lipase 35 U/L (13-60) 11/10/22 22:48 25-OH Vitamin D Total 104 ng/mL (30-100) H* 11/11/22 04:29 Procalcitonin 0.24 ng/mL (0-0.5) 11/10/22 22:48 TSH 1.86 uIU/mL (0.27-4.20) 11/11/22 04:29 Urine Opiates Screen Positive ng/mL (Negative) H 11/11/22 07:00 Ur Barbiturates Screen Negative ng/mL (Negative) 11/11/22 07:00 Ur Phencyclidine Scrn Negative ng/mL (Negative) 11/11/22 07:00 Ur Amphetamines Screen Negative ng/mL (Negative) 11/11/22 07:00 U Benzodiazepines Scrn Negative ng/mL (Negative) 11/11/22 07:00 Urine Cocaine Screen Negative ng/mL (Negative) 11/11/22 07:00 U Marijuana (THC) Screen Positive ng/mL (Negative) H 11/11/22 07:00 Ethyl Alcohol < 10 mg/dL (0-10) 11/10/22 22:48 Serum Ketones Negative (Negative) 11/10/22 22:48 Vitals Last Vital Signs Temp 98.9 F 11/11/22 06:56 Pulse 69 11/11/22 08:00 Resp 16 11/11/22 08:00 BP 115/69 11/11/22 06:56 Pulse Ox 96 11/11/22 08:00 O2 Del Method 11/11/22 08:00 Discharge Plan Discharge Patient Disposition: Home Condition: Stable Prescriptions: Continued sucralfate [Carafate] 1 gram tablet 1 g PO BID Qty: 60 1RF citalopram 10 mg tablet 10 mg PO DAILY Qty: 30 1RF atenolol 25 mg tablet 25 mg PO BID Qty: 60 3RF pantoprazole 40 mg tablet,delayed release (DR/EC) 40 mg PO BIDWMEAL Qty: 42 3RF psyllium husk [Metamucil] 0.4 gram capsule 0.4 g PO BID Qty: 90 0RF ferrous sulfate 325 mg (65 mg iron) tablet 325 mg PO EVERY OTHER DAY Qty: 90 0RF Discontinued clonidine HCl 0.1 mg tablet 0.1 mg PO Q6H PRN (Reason: alcohol withdrawal) Qty: 30 3RF aspirin 81 mg Tablet,Delayed Release (Dr/Ec) 81 mg PO DAILY Qty: 90 0RF Discharge Orders: Discharge Order (Routine); Ordered 11/11/22 Ordered By: Zelalem Osorio Referrals: Tyshawn Beard DO [Referring] - 1 week (EGD and colonoscopy, iron deficiency anemia, blood in stool) Angel Boston MD [Primary Care Provider] - 4-7 days (BMP on follow-up) Discharge Diet: Regular Discharge Activity: Increase activity as tolerated Patient Instructions: Opioid Safety Activity Restrictions/Additional Instructions: Discontinue aspirin Follow-up with your primary care provider 3 to 5 days with BMP Referral to Dr. Beard for EGD and colonoscopy. Reduce caffeine Stop marijuana Return for any concerns Patient's Health Concerns: Abdominal discomfort, acute kidney injury Assessment: See above Plan of Treatment: Increase hydration Stop aspirin Stop marijuana Goals: No recurrence of hospitalization Discharge Attestations Time Spent in Discharge Care*: greater than 30 min Quality Metrics Clinical Quality Measures [ No reported AMI, CVA or VTE this stay] Coding Level of Care Code Acute [facility] note Diagnoses External hemorrhoid K64.4 Anemia, iron deficiency D50.9 Acute kidney injury N17.9
[2022-11-11 10:52] LABS: Urine Color Light Yellow (Yellow)
[2022-11-11 10:53] LABS: Add Urine Culture? Yes; Amorphous Sediment Urine 2+ /hpf; Bacteria Urine 4+ /hpf; Bilirubin Urine Neg (Negative); Blood Urine Neg (Negative); Glucose Urine UA Norm (Normal); Ketones Urine 1+ (Negative); Leukocyte Esterase Urine Negative (Negative); Nitrate Urine Negative (Negative); Protein Urine Neg (Negative); Urine Appearance Turbid (CLEAR); Urobilinogen Urine Norm (Negative); pH Urine 5 (5-7)
--- NOTE | 2022-11-11 11:24 | PC.NURSE ---
Patient was discharged at 1122 with significant other. IV removed and intact. Patient given discharge instructions and education and verbalized understanding of all. Follow up appointments made. No prescriptions to be sent to pharmacy. Patient ambulated to front entrance.
== END 2022-11-11 11:33 | disposition home or self-care (01) ==
LOC: ER 22:40 → CSU 11-11 03:41
PROVIDERS: Emergency Medicine; Admitting Provider Internal Medicine; Emergency Provider Emergency Medicine; PCP Family Medicine; Visit Provider Internal Medicine
DX: K64.4 Residual hemorrhoidal skin tags (principal); D50.9 Iron deficiency anemia, unspecified; N17.9 Acute kidney failure, unspecified; I10 Essential (primary) hypertension; F17.200 Nicotine dependence, unspecified, uncomplicated
CPT/HCPCS: 74177; 80048; 80053; 80306; 80307; 81001; 82009; 82306; 82550; 83605; 83690; 83735; 84100; 84145; 84443; 85025; 86140; 87086; 93005; 96361; 96372; 96374; 96375; 99285; G0378; J1644; J2250; J2405; J3411; J7030; Q9967

== ENCOUNTER → 2023-01-20 15:50 | Outpatient (BNVA) | payer MEDICAID, SELFPAY | PROVIDERS: PCP Family Medicine; Visit Provider Clinical Nurse Specialist Adult Health | DX: I10 Essential (primary) hypertension (principal) | CPT/HCPCS: 80053; 83735 ==

== ENCOUNTER 2023-01-21 10:30 | Emergency (ER) | payer MEDICAID, SELFPAY ==
[2023-01-21] VITALS (13 sets, daily range): BP systolic 148–191; BP diastolic 100–110; PULSE 64–69; RESP 16–18; TEMP 36.4; O2SAT 92–99
--- NOTE | 2023-01-21 14:46 | ED_ITS ---
HPI - Weakness General: Chief complaint: Weakness Stated complaint: Ludy sent for dehydration Time Seen by Provider: 01/21/23 14:02 Source: patient and family Mode of arrival: ambulatory Limitations: no limitations History of Present Illness: This patient was sent to the emergency department by his primary career and guidance counselor. The patient has not felt well over the past 3 days with fatigue malaise body aches and body cramps. Allegedly had some blood work done at his primary care office yesterday that showed findings suggestive of dehydration. The patient's not been recently ill with nausea vomiting diarrhea. He does not take any diuretics. He does have a history of hypertension which has been difficult to control in the past. He takes atenolol and just had losartan added to his regimen yesterday. He also takes citalopram which has been recently increasing its dose yesterday. There is no concomitant illness and at the home. He does have a past history of significant alcohol overuse and was admitted for alcohol detox in last fall and has been alcohol free since that period of time. He does not use tobacco but does smoke marijuana. He states he is not depressed but is occasionally anxious at times. MD Complaint: generalized weakness and lack of energy Associated symptoms: Denies chest pain, chills, dysuria, fever(s), headache(s), nausea, syncope or vomiting Review of Systems Const: Reports: fatigue; Denies: fever(s), chills, change in appetite, change in weight or night sweats Eyes: Denies: change in vision ENMT: Denies: throat pain, odynophagia, nasal discharge or nasal congestion Card: Denies: chest pain, palpitations, irregular heart rhythm, edema, syncope or pre-syncope Resp: Denies: dyspnea, productive cough or non-productive cough GI: Denies: abdominal pain, nausea, vomiting or diarrhea : Denies: flank pain, difficulty urinating, dysuria or urinary frequency Musc: Denies: neck pain, back pain, extremity pain or extremity swelling Skin/Breast: Denies: rash Neuro: Denies: headache(s), numbness in extremities or weakness in extremities Psych: Reports: anxiety; Denies: depression or mood swings PFS ED PFSH: Medical History Alcohol withdrawal seizure Gastritis Hematochezia Hypertension Surgical History No pertinent past surgical history Family History Denies family history of CAD (coronary artery disease) Social History Smoking and tobacco status: smoker, details unknown Alcohol intake: current Alcohol intake frequency: 3 or more drinks per day Alcohol type: beer Counseling given: Yes Physical Exam Narrative: EXAM NARRATIVE: He is a healthy-appearing male who answers questions in a goal-directed fashion. His mood appears to be normal and his affect is also normal. He answers questions in a goal-directed fashion. Const: COMMON NORMALS: no acute distress, average body habitus, patient oriented x3, healthy appearing and alert ORIENTATION/CONSCIOUSNESS: Yes awake HENMT: COMMON NORMALS: normocephalic, Normal nasal mucous membranes and turbinates present, moist oral mucous membranes and oropharynx normal HEAD & SCALP: normocephalic FACE & SINUS: normal facial exam NOSE: Normal nasal mucous membranes and turbinates present Eye: COMMON NORMALS: Equal, round and reactive pupils present, EOMs intact bilaterally and conjunctivae normal CONJUNCTIVA: Yes conjunctivae normal PUPIL: Yes Equal, round and reactive pupils present Neck/C-Spine: COMMON NORMALS: full ROM, no meningeal signs, no JVD and Thyroid normal THYROID: Thyroid normal Chest: COMMONS NORMALS: normal inspection of the chest Resp: COMMON NORMALS: normal respiratory effort, No use of accessory muscles and clear to auscultation bilaterally AUSCULTATION: clear to auscultation bilaterally Cardio: COMMON NORMALS: no JVD, regular rate, regular rhythm, No murmurs present (Cardio) and Peripheral pulses 2+ throughout RATE: regular rate RHYTHM: regular rhythm PERIPHERAL PULSES: Peripheral pulses 2+ throughout GI: COMMON NORMALS: Normal to inspection, nondistended, normoactive bowel sounds present, Soft to palpation, non-tender and no masses PALPATION: Yes Soft to palpation : COMMON NORMALS: Yes no CVA tenderness BLADDER/KIDNEY EXAM: Yes no CVA tenderness Back/Pelvis: COMMON NORMALS: no CVA tenderness, thoracic and lumbar spine normal to inspection, no thoracic nor lumbar tenderness and straight leg raise negative bilaterally Extremity: COMMON NORMALS: normal to inspection and full ROM Neuro: COMMON NORMALS: patient oriented x3, moves all extremities, no focal motor deficits and no sensory deficits noted SENSORIUM/ORIENTATION: Yes alert MENINGEAL SIGNS: Yes no meningeal signs CRANIAL NERVES: Yes CN normal except as noted Psych: COMMON NORMALS: mental status grossly normal, Normal thought process present, cooperative and speech normal ATTITUDE: Yes calm SPEECH: Yes normal speech MOOD & AFFECT: Yes euthymic mood THOUGHT PROCESS: Normal thought process present Skin: COMMON NORMALS: no rashes or lesions noted, no wounds and turgor normal GENERAL SKIN EXAM: no rashes or lesions noted and turgor normal Course Reevaluation(s): Reevaluation #1: Patient remained stable. He is received 2 L of IV fluids and has had response with significant urine output. No new or focal findings on repeat evaluation. I spent some time discussing current findings with patient and spouse and also reviewing his lifestyle to include marijuana intake and whether he is having vomiting associated with excess marijuana use. Also discussed salting food and otherwise eating salty foods which may be contributing to labile blood pressure. He voiced understanding of her discussion and they were both appreciative of care. He will be monitoring his blood pressure at home and following up with his primary care doctor. Stable for discharge at this time without any evidence of an ongoing emergency medical condition. Time: 19:11 Vital Signs: Vital signs: Vital Signs Temperature 97.5 F L 01/21/23 11:02 Pulse Rate 64 01/21/23 11:02 Respiratory Rate 16 01/21/23 11:02 Blood Pressure 191/110 01/21/23 18:30 Pulse Oximetry 93 01/21/23 18:30 Oxygen Delivery Me thod 01/21/23 11:02 MDM - Weakness Medical Decision Making This patient was referred to the emergency department from his primary care clinic because of concerns about possible dehydration. The patient's history is notable for history of significant alcohol use and abuse in the past with ultimately admission for for detoxification. Patient upon the information available to us at the emergency department he states that he is not been drinking since that admission and detox at that time and his collaborates that history. He denies any recent illness or history of nausea vomiting etc. t hat might of contributed to volume depletion. He has laboratories this evening revealed evidence of volume depletion and borderline hyponatremia. He received the benefit of normal saline and lactated Ringer's fluid infusions in the emergency department. Responded with significant urine output. Of note is that his kidney function is improved from his most recent creatinines. His other parameters are reassuring. Is not clear why this patient has these episodes of volume depletion. 1 wonders if there is some marijuana related hyperemesis that is not being shared. Nonetheless at this time he is stable to be discharged home with return precautions discussed with both he and spouse and all questions were answered. We also discussed other causes of labile hypertension such as salt intake etc. Medical Records I reviewed the patient's medical records. Lab Data I reviewed the patient's lab results. 01/21/23 15:05 01/21/23 15:05 Laboratory Results WBC 14.2 10^3/uL (4.0-10.0) H 01/21/23 15:05 RBC 7.04 10^6/uL (4.1-5.3) H 01/21/23 15:05 Hgb 16.0 g/dL (11.7-16.6) 01/21/23 15:05 Hct 50.8 % (42.0-52.0) 01/21/23 15:05 MCV 72.2 fl (80-94) L 01/21/23 15:05 MCH 22.7 pg (28.0-34.0) L 01/21/23 15:05 MCHC 31.5 g/dL (30.0-36.0) 01/21/23 15:05 RDW 18.9 % (12.1-15.1) H 01/21/23 15:05 Plt Count 553 10^3/cmm (130-400) H 01/21/23 15:05 MPV 10.1 fL (7.4-10.4) 01/21/23 15:05 Neut % (Auto) 81.3 % 01/21/23 15:05 Lymph % (Auto) 9.3 % 01/21/23 15:05 [place] % (Auto) 8.3 % 01/21/23 15:05 Eos % (Auto) 0.2 % 01/21/23 15:05 Baso % (Auto) 0.1 % 01/21/23 15:05 Neut # (Auto) 11.52 10^3/uL (1.8-7.7) H 01/21/23 15:05 Lymph # (Auto) 1.3 10^3/uL (0.8-4.8) 01/21/23 15:05 Independence # (Auto) 1.2 10^3/uL (0.2-0.9) H 01/21/23 15:05 Eos # (Auto) 0.0 10^3/uL (0.0-0.8) 01/21/23 15:05 Baso # (Auto) 0.0 10^3/uL (0.0-0.1) 01/21/23 15:05 Nucleated RBC % (auto) 0 % 01/21/23 15:05 Nucleated RBCs # 0.0 /100WBC 01/21/23 15:05 Sodium 129 mmol/L (136-145) L 01/21/23 15:05 Potassium 4.7 mmol/L (3.5-5.1) 01/21/23 15:05 Chloride 86 mmol/L (98-107) L 01/21/23 15:05 Carbon Dioxide 24 mmol/L (22-29) 01/21/23 15:05 Anion Gap 23.7 (5-19) H 01/21/23 15:05 BUN 46 mg/dL (6-20) H 01/21/23 15:05 Creatinine 1.6 mg/dL (0.7-1.2) H 01/21/23 15:05 GFR Calculation 49.2 mL/min (90-130) L 01/21/23 15:05 Glucose 103 mg/dL (65-115) 01/21/23 15:05 Calculated Osmolality 280 mOsm/kg (285-295) L 01/21/23 15:05 Calcium 10.9 mg/dL (8.5-10.5) H 01/21/23 15:05 Magnesium 2.9 mg/dL (1.7-2.3) H 01/21/23 15:05 Total Bilirubin 0.7 mg/dL (0.15-1.2) 01/21/23 15:05 AST 16 U/L (0-40) 01/21/23 15:05 ALT 17 U/L (0-41) 01/21/23 15:05 Alkaline Phosphatase 109 U/L (40-130) 01/21/23 15:05 Total Protein 9.4 g/dL (6.6-8.7) H 01/21/23 15:05 Albumin 5.4 g/dL (3.5-5.2) H 01/21/23 15:05 Globulin 4.0 g/dL (1.3-4.6) 01/21/23 15:05 Urine Color Yellow (Yellow) 01/21/23 16:08 Urine Appearance Hazy (CLEAR) A 01/21/23 16:08 Urine pH 5 (5-7) 01/21/23 16:08 Ur Specific Cody 1.025 (1.005-1.030) 01/21/23 16:08 Urine Protein 1+ (Negative) H 01/21/23 16:08 Urine Glucose (UA) Norm (Normal) 01/21/23 16:08 Urine Ketones 2+ (Negative) H 01/21/23 16:08 Urine Blood Neg (Negative) 01/21/23 16:08 Urine Nitrate Negative (Negative) 01/21/23 16:08 Urine Bilirubin 1+ (Negative) H 01/21/23 16:08 Urine Urobilinogen Norm mg/dL (Negative) 01/21/23 16:08 Ur Leukocyte Esterase Negative (Negative) 01/21/23 16:08 Urine RBC None /hpf (0-2) 01/21/23 16:08 Urine WBC Rare /hpf (0-5) 01/21/23 16:08 Ur Squamous Epith Cells None /hpf (0-5) 01/21/23 16:08 Amorphous Sediment 2+ /hpf 01/21/23 16:08 Urine Bacteria None /hpf (NONE) 01/21/23 16:08 Hyaline Casts 0-4 /lpf H 01/21/23 16:08 Discharge Plan Discharge Patient Disposition: Home Clinical Impression: Hypertension, Volume depletion Condition: Stable Prescriptions: No Action losartan 25 mg tablet 25 mg PO DAILY Qty: 90 0RF pantoprazole 40 mg tablet,delayed release (DR/EC) See Rx Instructions .ROUTE .COMPLEX Qty: 90 3RF Dose Instruction: Take 1 tablet by mouth once daily Rx Instructions: Take 1 tablet by mouth once daily atenolol 25 mg tablet 25 mg PO BID Qty: 60 3RF citalopram 20 mg tablet 20 mg PO DAILY ferrous sulfate 325 mg (65 mg iron) tablet 325 mg PO EVERY OTHER DAY Qty: 90 0RF Discharge Orders: Discharge ED (Routine); Ordered 01/21/23 Ordered By: Efra Martinez Referrals: Angel Boston MD [Primary Care Provider] - Discharge Diet: Low Salt Discharge Activity: Increase activity as tolerated Patient Instructions: Opioid Safety, Pain Management Activity Restrictions/Additional Instructions: As we discussed its important that you follow a low-salt diet as that may have an effect on how your blood pressure is controlled. Monitor your blood pressure on a daily basis and record those numbers for use by your primary career and guidance counselor regarding adjusting your medications. Continue to drink water as well as sports drinks daily and to keep well-hydrated and maintain your kidney function. If you develop any concerning symptoms such as sustained uncontrolled elevation of your blood pressure, nausea vomiting diarrhea, or any other concerning symptoms return to this or the nearest emergency department. Coding Level of Care Code ED Project Technician for Crow Barakat
[2023-01-21] MEDS: lactated ringers 1,000 ML 999 ML IV ×2 (15:10→16:58)
[2023-01-21 15:17] LABS: Basophils % 0.1 %; Eosinophils % 0.2 %; Hematocrit 50.8 % (42.0-52.0); Lymphocytes # 1.3 10^3/uL (0.8-4.8); Lymphocytes % 9.3 %; Mean Corpuscular HGB Conc 31.5 g/dL (30.0-36.0); Mean Corpuscular Hemoglobin 22.7 pg (28.0-34.0); Mean Corpuscular Volume 72.2 fl (80-94); Mean Platelet Volume 10.1 fL (7.4-10.4); Monocytes # 1.2 10^3/uL (0.2-0.9); Monocytes % 8.3 %; Neutrophils # 11.52 10^3/uL (1.8-7.7); Neutrophils % 81.3 %; Nucleated Red Blood Cells % 0 %; Platelet Count 553 10^3/cmm (130-400); Red Blood Count 7.04 10^6/uL (4.1-5.3); Red Cell Distribution Width 18.9 % (12.1-15.1); White Blood Count 14.2 10^3/uL (4.0-10.0)
[2023-01-21 15:35] LABS: Alanine Aminotransferase 17 U/L (0-41); Albumin Level 5.4 g/dL (3.5-5.2); Alkaline Phosphatase 109 U/L (40-130); Anion Gap 23.7 (5-19); Aspartate Amino Transferase 16 U/L (0-40); Blood Urea Nitrogen 46 mg/dL (6-20); Calcium 10.9 mg/dL (8.5-10.5); Carbon Dioxide 24 mmol/L (22-29); Chloride 86 mmol/L (98-107); Glomerular Filtration Rate 49.2 mL/min (90-130); Glucose 103 mg/dL (65-115); Magnesium 2.9 mg/dL (1.7-2.3); Osmolality Calculated 280 mOsm/kg (285-295); Potassium 4.7 mmol/L (3.5-5.1); Sodium 129 mmol/L (136-145); Total Bilirubin 0.7 mg/dL (0.15-1.2); Total Protein 9.4 g/dL (6.6-8.7)
[2023-01-21 16:58] LABS: Urine Color Yellow (Yellow)
[2023-01-21] MEDS: ondansetron 2 mg/ML SDV 2 mL 4 MG IVP (16:58)
[2023-01-21] MEDS: morphine 4 mg/mL SDV 1 mL IVP (16:58)
[2023-01-21 16:59] LABS: Add Urine Microscopic? YES; Bilirubin Urine 1+ (Negative); Blood Urine Neg (Negative); Glucose Urine UA Norm (Normal); Ketones Urine 2+ (Negative); Leukocyte Esterase Urine Negative (Negative); Nitrate Urine Negative (Negative); Protein Urine 1+ (Negative); Specific Gravity, Urine 1.025 (1.005-1.030); Urine Appearance Hazy (CLEAR); Urobilinogen Urine Norm (Negative); WBC Urine RARE /hpf (0-5); pH Urine 5 (5-7)
[2023-01-21 17:00] LABS: Hyaline Casts Urine 0-4 /lpf
[2023-01-21 17:01] LABS: Add Urine Culture? No; Amorphous Sediment Urine 2+ /hpf
== END 2023-01-21 19:25 | disposition home or self-care (01) ==
PROVIDERS: Emergency Provider Emergency Medicine; PCP Family Medicine
DX: I10 Essential (primary) hypertension (principal); E86.9 Volume depletion, unspecified; F17.200 Nicotine dependence, unspecified, uncomplicated
CPT/HCPCS: 80053; 81001; 83735; 85025; 96361; 96374; 96375; 99284; J2270; J2405; J7120

== ENCOUNTER 2023-02-01 10:02 | Outpatient (CLI) | payer MEDICAID, SELFPAY ==
--- NOTE | 2023-02-01 | ECG_ITS ---
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 Interpretive Statements NAME OF STUDY: LEXISCAN SESTAMIBI STRESS TEST INDICATION: CP/HTN/ELEVATED TROPONIN, PROCEDURE: At the baseline, the EKG revealed sinus bradycardia with a rate of 54 bpm. Poor R wave progression. The baseline heart was 54 bpm with a blood pressue of 132/77 mm of Hg Lexiscan was infused over a period of 20 seconds. A total of 0.4 milligrams of Lexiscan was infused. The stress phase was continued for a total of 5 minutes. Heart rate at the end of the stress phase was 89 bpm with a blood pressure 144/69 mm of Hg. The EKG at the peak infusion revealed no significant changes. Sestamibi was injected 20 seconds after the Lexiscan infusion. Heart rate at the end of the recovery phase was 71 bpm with a blood pressure of 139/70 mm of Hg. CONCLUSION: 1. No significant EKG changes with the LexiScan infusion 2. No LexiScan induced chest pain or cardiac arrhythmia 3. Normal blood pressure and heart rate response 4. Sestamibi/sestamibi perfusion scan pending; see separate report. Electronically Signed On 02-02-2023 0:27:46 CDT by Re Stephen M.D. [id number]
--- NOTE | 2023-02-01 10:16 | NMCV_ITS ---
NM junior perf SPECT r/s* [id number] Pritesh Holbrook Age: 37 Gender: M : 1985 Exam Date: 02/01/2023 11:11 Ordering Phys: Jerardo Seaman MD Technologist: VERENICE Capps Exam Location: [facility] Indications: HYPERTENSION STRESS TEST Please see separate stress test report in [facility] for full findings IMAGE PROTOCOL Rest/Stress 1 Lexiscan Day Radiopharmaceutical Dose (mCi) Administration Site Administered by Rest: Tc-99m 10.4 IV VERENICE Balderas Sestamibi Stress:Tc-99m 32.9 IV VERENICE Balderas Sestamibi Rest: 01-Feb-2023 60 Discovery 630 Stress: 01-Feb-2023 30 Discovery 630 0.4mg Lexiscan. Images obtained in supine and prone position. SPECT RESULTS Technical Quality: Excellent Raw Data Analysis: Normal Image Corrections: No attenuation or motion correction applied Summed Stress Score: 0 Summed Rest Score: 0 Summed Difference Score: 0 PERFUSION FINDINGS Uniform myocardial tracer uptake with no significant perfusion abnormalities FUNCTIONAL RESULTS (calculated via Gated SPECT) Stress Image LV EF (%): 66 Stress EDV (mL):178 TID: 1.07 Stress ESV (mL):60 FUNCTIONAL FINDINGS: Segmental wall motion analysis revealing no gross wall motion abnormalities IMPRESSIONS 1. Unremarkable Myocardial perfusion imaging. 2. Normal LV ejection fraction of 66%. 3. LV wall motion analysis revealing no gross wall motion abnormalities. 4. Mildly dilated LV cavity with an end-systolic volume of 60 ml. Low probability for coronary ischemia, based on the above findings Dr Re Stephen MD FACC (Electronically Signed) Final Date: 01 February 2023 16:23 S
[2023-02-01] MEDS: regadenoson 0.4 Mg/5 ml Syringe IVP (11:44)
[2023-02-01 12:10] VITALS: BP 139/76; PULSE 74
== END 2023-02-01 10:03 | disposition home or self-care (01) ==
LOC: CDL 10:06
PROVIDERS: PCP Family Medicine; Visit Provider Internal Medicine
DX: R07.9 Chest pain, unspecified (principal); I10 Essential (primary) hypertension; R79.89 Other specified abnormal findings of blood chemistry
CPT/HCPCS: 36415; 78452; 93017; 96374; A9500; J2785

== ENCOUNTER 2023-02-07 17:34 | Emergency (ER) | payer MEDICAID, SELFPAY ==
[2023-02-07] VITALS (9 sets, daily range): BP systolic 148; BP diastolic 80–83; PULSE 58–90; RESP 15–18; TEMP 37.5; O2SAT 96–100
--- NOTE | 2023-02-07 17:39 | W.ED.SEIZURE ---
HPI - Seizure General: Chief Complaint: Seizure Stated Complaint: SEIZURE Time Seen by Provider: 02/07/23 17:39 History of Present Illness: HPI Narrative: Mr. Holbrook is a 37-year-old gentleman with history of hypertension, anxiety, history of suspected alcohol withdrawal seizures presenting to the emergency department for witnessed seizure. He reports feeling somewhat off today but not any specific focal symptoms. He was sitting in bed when he had sudden onset of sitting up, phonation of abnormal sound, and then generalized tonic-clonic seizure. This lasted approximately 1 minute with loss of control of bladder associated with it. He subsequently had a postictal period. He currently feels quite thirsty and endorses some bilateral upper extremity numbness however denies any other changes. He reports quitting drinking around when he had the alcohol withdrawal seizures. No other specific changes in health, exacerbating, or alleviating factors identified. Onset (ago): hour(s) Description of Episode: loss of consciousness, tonic-clonic movement and bladder incontinence Duration of episode: 1 -: minutes(s) Witnessed: Yes - by Bystander Trauma: No Seizure History: Yes Place: Home Associated symptoms: Reports malaise and other Review of Systems General: Reports: 10 or more systems reviewed and unremarkable except in HPI and below Const: Reports: malaise PFSH ED PFSH: Medical History Alcohol withdrawal seizure Gastritis Hematochezia Hypertension Surgical History No pertinent past surgical history Family History Denies family history of CAD (coronary artery disease) Social History Smoking and tobacco status: smoker, details unknown Alcohol intake: current Alcohol intake frequency: 3 or more drinks per day Alcohol type: beer Counseling given: Yes Physical Exam Const: COMMON NORMALS: patient oriented x3 and alert GENERAL APPEARANCE: cooperative and well developed HENMT: COMMON NORMALS: normocephalic and atraumatic HEAD & SCALP: normocephalic and atraumatic THROAT: posterior oropharynx normal Eye: COMMON NORMALS: conjunctivae normal CONJUNCTIVA: Yes conjunctivae normal SCLERA: sclerae normal Neck/C-Spine: COMMON NORMALS: supple GENERAL: Yes trachea midline OTHER: Mild tenderness to palpation Resp: COMMON NORMALS: normal respiratory effort and clear to auscultation bilaterally EFFORT & INSPECTION: Yes able to speak in complete sentences AUSCULTATION: clear to auscultation bilaterally Cardio: COMMON NORMALS: regular rate and regular rhythm RATE: regular rate RHYTHM: regular rhythm GI: COMMON NORMALS: Soft to palpation PALPATION: Yes Soft to palpation and No Tenderness to palpation present (GI) Extremity: GENERAL: Yes normal exam except as noted and No edema Neuro: COMMON NORMALS: patient oriented x3, CN's II-XII intact bilaterally, moves all extremities, no focal motor deficits and no sensory deficits noted SENSORIUM/ORIENTATION: Yes alert and No Orientation impaired Psych: COMMON NORMALS: mental status grossly normal and Normal thought process present THOUGHT PROCESS: Normal thought process present Course Vital Signs: Vital signs: Vital Signs Temperature 99.5 F 02/07/23 21:42 Pulse Rate 90 02/07/23 20:28 Respiratory Rate 18 02/07/23 20:28 Blood Pressure 148/83 02/07/23 22:32 Pulse Oximetry 97 02/07/23 22:32 Oxygen Delivery Me thod 02/07/23 20:28 Oxygen Flow Rate 2 02/07/23 19:33 MDM - Seizure MDM Narrative Medical decision making narrative: 37-year-old gentleman with remote history of seizure suspected to be in the context of alcohol withdrawal presenting for witnessed seizure-like episode. Patient currently thirsty and feels somewhat odd however no focal neurologic deficits. Patient is nontoxic and there is no reported trauma. EKG notable for sinus rhythm, normal axis and intervals, no STEMI. Labs with leukocytosis and hemoconcentration similar to prior, metabolic panel with some evidence of dehydration with elevated creatinine. Chest x-ray with no lobar consolidation or pneumothorax. CT head and cervical spine negative for acute pathology. Patient treated with IV fluids and antiepileptic as well as Tylenol. Most likely etiology of patient's symptoms is seizure. Given history of seizures I will initiate the patient on Keppra and refer for further outpatient follow-up with neurology. Seizure precautions discussed. The results of ED evaluation were discussed with the patient including prescriptions and/or symptomatic cares (if applicable) including appropriate and responsible use, followup plan, and return precautions. The patient verbalized understanding and felt safe for discharge. Medical Records Attestation: I reviewed the patient's medical records. Lab Data Attestation: I reviewed the patient's lab results. 02/07/23 18:15 02/07/23 18:15 Labs: Radiology Impressions Chest X-Ray 02/07/23 17:59 IMPRESSION: No acute findings. Cervical Spine CT 02/07/23 18:14 IMPRESSION: 1. No CT evidence of acute cervical spine traumatic injury. 2. Additional findings, as above. Head CT 02/07/23 18:14 IMPRESSION: No CT evidence of acute intracranial pathology. Laboratory Results WBC 16.6 10^3/uL (4.0-10.0) H 02/07/23 18:15 RBC 6.06 10^6/uL (4.1-5.3) H 02/07/23 18:15 Hgb 14.1 g/dL (11.7-16.6) 02/07/23 18:15 Hct 45.9 % (42.0-52.0) 02/07/23 18:15 MCV 75.7 fl (80-94) L 02/07/23 18:15 MCH 23.3 pg (28.0-34.0) L 02/07/23 18:15 MCHC 30.7 g/dL (30.0-36.0) 02/07/23 18:15 RDW 17.6 % (12.1-15.1) H 02/07/23 18:15 Plt Count 413 10^3/cmm (130-400) H 02/07/23 18:15 MPV 9.7 fL (7.4-10.4) 02/07/23 18:15 Neut % (Auto) 92.7 % 02/07/23 18:15 Lymph % (Auto) 3.1 % 02/07/23 18:15 [place] % (Auto) 3.2 % 02/07/23 18:15 Eos % (Auto) 0.0 % 02/07/23 18:15 Baso % (Auto) 0.2 % 02/07/23 18:15 Neut # (Auto) 15.41 10^3/uL (1.8-7.7) H 02/07/23 18:15 Lymph # (Auto) 0.5 10^3/uL (0.8-4.8) L 02/07/23 18:15 [place] # (Auto) 0.5 10^3/uL (0.2-0.9) 02/07/23 18:15 Eos # (Auto) 0.0 10^3/uL (0.0-0.8) 02/07/23 18:15 Baso # (Auto) 0.0 10^3/uL (0.0-0.1) 02/07/23 18:15 Nucleated RBC % (auto) 0 % 02/07/23 18:15 Nucleated RBCs # 0.0 /100WBC 02/07/23 18:15 Sodium 138 mmol/L (136-145) 02/07/23 18:15 Potassium 4.2 mmol/L (3.5-5.1) 02/07/23 18:15 Chloride 100 mmol/L (98-107) 02/07/23 18:15 Carbon Dioxide 24 mmol/L (22-29) 02/07/23 18:15 Anion Gap 18.2 (5-19) 02/07/23 18:15 BUN 12 mg/dL (6-20) 02/07/23 18:15 Creatinine 1.1 mg/dL (0.7-1.2) 02/07/23 18:15 GFR Calculation 75.7 mL/min (90-130) L 02/07/23 18:15 Glucose 173 mg/dL (65-115) H 02/07/23 18:15 Calculated Osmolality 290 mOsm/kg (285-295) 02/07/23 18:15 Calcium 10.9 mg/dL (8.5-10.5) H 02/07/23 18:15 Magnesium 2.6 mg/dL (1.7-2.3) H 02/07/23 18:15 Total Bilirubin 0.4 mg/dL (0.15-1.2) 02/07/23 18:15 AST 16 U/L (0-40) 02/07/23 18:15 ALT 22 U/L (0-41) 02/07/23 18:15 Alkaline Phosphatase 98 U/L (40-130) 02/07/23 18:15 Total Protein 8.3 g/dL (6.6-8.7) 02/07/23 18:15 Albumin 5.0 g/dL (3.5-5.2) 02/07/23 18:15 Globulin 3.3 g/dL (1.3-4.6) 02/07/23 18:15 TSH 1.27 uIU/mL (0.27-4.20) 02/07/23 18:15 Prolactin 28.50 ng/mL (4.0-15.2) H 02/07/23 18:15 Urine Color Yellow (Yellow) 02/07/23 21: Urine Appearance Cloudy (CLEAR) A 02/07/23 21: Urine pH 5 (5-7) 02/07/23 21: Ur Specific [place] 1.025 (1.005-1.030) 02/07/23 21: Urine Protein 1+ (Negative) H 02/07/23 21: Urine Glucose (UA) Norm (Normal) 02/07/23 21: Urine Ketones 1+ (Negative) H 02/07/23 21: Urine Blood Trace (Negative) H 02/07/23 21: Urine Nitrate Negative (Negative) 02/07/23 21: Urine Bilirubin Neg (Negative) 02/07/23 21: Urine Urobilinogen Norm mg/dL (Negative) 02/07/23 21: Ur Leukocyte Esterase Negative (Negative) 02/07/23 21: Urine RBC 0-4 /hpf (0-2) H 02/07/23 21:29 Urine WBC 0-4 /hpf (0-5) H 02/07/23 21:29 Ur Squamous Epith Cells 0-4 /hpf (0-5) H 02/07/23 21: Other Crystals Amm biurate /hpf 02/07/23 21:29 Amorphous Sediment 3+ /hpf 02/07/23 21:29 Urine Bacteria Trace /hpf (NONE) 02/07/23 21: Urine Mucus 1+ /hpf 02/07/23 21:29 Salicylates < 0.3 mg/dL (3-10) L 02/07/23 18:15 Urine Opiates Screen Negative ng/mL (Negative) 02/07/23 21: Acetaminophen < 5.0 ug/mL (10-30) L 02/07/23 18:15 Ur Barbiturates Screen Negative ng/mL (Negative) 02/07/23 21:29 Ur Phencyclidine Scrn Negative ng/mL (Negative) 02/07/23 21:29 Ur Amphetamines Screen Negative ng/mL (Negative) 02/07/23 21:29 U Benzodiazepines Scrn Negative ng/mL (Negative) 02/07/23 21:29 Urine Cocaine Screen Negative ng/mL (Negative) 02/07/23 21:29 U Marijuana (THC) Screen Positive ng/mL (Negative) H 02/07/23 21:29 Ethyl Alcohol < 10 mg/dL (0-10) 02/07/23 18:15 Discharge Plan Discharge Patient Disposition: Home Clinical Impression: Generalized seizure, Dehydration Condition: Stable Prescriptions: New Keppra 500 mg tablet 500 mg PO Q12H Qty: 60 1RF No Action losartan 25 mg tablet 25 mg PO DAILY Qty: 90 0RF pantoprazole 40 mg tablet,delayed release (DR/EC) See Rx Instructions .ROUTE .COMPLEX Qty: 90 3RF Dose Instruction: Take 1 tablet by mouth once daily Rx Instructions: Take 1 tablet by mouth once daily atenolol 25 mg tablet 25 mg PO BID Qty: 60 3RF citalopram 20 mg tablet 40 mg PO DAILY ferrous sulfate 325 mg (65 mg iron) tablet 325 mg PO EVERY OTHER DAY Qty: 90 0RF Discharge Orders: Discharge ED (Routine); Ordered 02/07/23 Ordered By: Denis Lucio Referrals: Angel Boston MD [Primary Care Provider] - Discharge Diet: Usual diet Discharge Activity: Limit activity as instructed Patient Instructions: Dehydration (ED), Recurrent Seizures in Adults (ED) Activity Restrictions/Additional Instructions: Thank you for visiting the emergency department. You were seen and evaluated for seizure. The exact cause of your seizure is unclear however given history may be secondary to seizure disorder. I will start you on a antiepileptic medication called levetiracetam. I will also message case management for follow-up with neurology and outpatient EEG. Please also follow-up with your primary care provider. Do not drive or operate machinery, do not bathe in a bathtub or swim in a swimming pool, do not cook over open flame or stand over open flame, do not climb tall objects, do not otherwise perform tasks that would be dangerous if you were to have another seizure. Generally these precautions continue until 6 months seizure-free. Return to the emergency department for recurrent seizure, uncontrolled symptoms, any new neurologic symptoms, or anything else that you are concerned about and feel needs emergency department evaluation. Coding Level of Care Code ED [employer] for [employer]
--- NOTE | 2023-02-07 17:59 | XRR_ITS ---
PROCEDURE INFORMATION: Exam: XR Chest Exam date and time: 02/07/2023 6:05 PM Age: 37 years old Clinical indication: Other: Seizures; Additional info: Seizure TECHNIQUE: Imaging protocol: Radiologic exam of the chest. Views: 1 view. COMPARISON: CR XR chest 1V portable [id number] 10/22/2022 12:30 PM FINDINGS: Lungs: Calcified granuloma noted at the right lower lung. No consolidation. Pleural spaces: Unremarkable. No pleural effusion. No pneumothorax. Heart/Mediastinum: No cardiomegaly. Calcified mediastinal and hilar lymph nodes noted. Bones/joints: Unremarkable. XR/XR chest 1V portable [id number] IMPRESSION: No acute findings.
--- NOTE | 2023-02-07 18:00 | ECG_ITS ---
[facility] Test Date: 2023-02-07 Pat Name: Pritesh Holbrook Department: Room: Gender: Male Mate Chief: : 1985 Requested By: Denis Lucio Order Number: [id number] Gabbie MD: NANI BARBA Measurements Intervals [place] Rate: 63 P: 71 CA: 133 QRS: 18 QRSD: 95 T: 30 QT: 379 QTc: 389 Interpretive Statements SINUS RHYTHM Compared to ECG 11/11/2022 00:44:17 Sinus bradycardia no longer present Electronically Signed On 02-08-2023 3:07:06 CDT by NANI BARBA [email or web address]
--- NOTE | 2023-02-07 18:14 | CTR_ITS ---
PROCEDURE INFORMATION: Exam: CT Cervical Spine Without Contrast Exam date and time: 02/07/2023 6:27 PM Age: 37 years old Clinical indication: Other: Bi arm paresthesias; Prior surgery; Surgery type: C-sp; Additional info: Bilateral arm paresthesias, HX neck injury TECHNIQUE: Imaging protocol: Computed tomography of the cervical spine without contrast. Axial, coronal and sagittal reformatted images were created and reviewed. Radiation optimization: All CT scans at this facility use at least one of these dose optimization techniques: automated exposure control; mA and/or kV adjustment per patient size (includes targeted exams where dose is matched to clinical indication); or iterative reconstruction. REPORTING DATA: Count of CT and Cardiac NM exams in prior 12 months: This patient has received 7 known CTs and 0 known cardiac nuclear medicine studies in the 12 months prior to the current study. COMPARISON: CT cervical spin wo con* [id number] 08/14/2022 4:32 PM RADIATION DOSE METRICS: Total DLP (mGy-cm): 227.57 FINDINGS: Bones/joints: Normal cervical lordosis. Evidence of prior C4-C6 ACDF and C5 corpectomy. No CT evidence of acute fracture, dislocation or subluxation. Alignment anatomic. Mild dextroscoliosis. Vertebral body heights maintained. Mild neural foraminal narrowing at C5-C6 on the right. No significant spinal stenosis. Lungs: Grossly unremarkable. Soft tissues: Grossly unremarkable. CT/CT cervical spin wo con* [id number] IMPRESSION: 1. No CT evidence of acute cervical spine traumatic injury. 2. Additional findings, as above.
--- NOTE | 2023-02-07 18:14 | CTR_ITS ---
PROCEDURE INFORMATION: Exam: CT Head Without Contrast Exam date and time: 02/07/2023 6:23 PM Age: 37 years old Clinical indication: Other: Seizure TECHNIQUE: Imaging protocol: Computed tomography of the head without contrast. Axial, coronal and sagittal reformatted images were created and reviewed. Radiation optimization: All CT scans at this facility use at least one of these dose optimization techniques: automated exposure control; mA and/or kV adjustment per patient size (includes targeted exams where dose is matched to clinical indication); or iterative reconstruction. REPORTING DATA: Count of CT and Cardiac NM exams in prior 12 months: This patient has received 7 known CTs and 0 known cardiac nuclear medicine studies in the 12 months prior to the current study. COMPARISON: CT head wo con* [id number] 10/22/2022 2:48 AM RADIATION DOSE METRICS: Total DLP (mGy-cm): 1175.18 FINDINGS: Brain: No CT evidence of acute intracranial hemorrhage or acute territorial infarction. No significant mass effect or midline shift. Basal cisterns patent. Cerebral ventricles: Normal in size and configuration. Paranasal sinuses: Unremarkable. No fluid levels. Mastoid air cells: Grossly unremarkable. Bones/joints: No acute osseous abnormality. Soft tissues: Grossly unremarkable. CT/CT head wo con* [id number] IMPRESSION: No CT evidence of acute intracranial pathology.
[2023-02-07] MEDS: sodium chloride 0.9% 1,000 ML 999 ML IV ×2 (18:21→20:00)
[2023-02-07 18:35] LABS: Basophils % 0.2 %; Hematocrit 45.9 % (42.0-52.0); Hemoglobin 14.1 g/dL (11.7-16.6); Lymphocytes # 0.5 10^3/uL (0.8-4.8); Lymphocytes % 3.1 %; Mean Corpuscular HGB Conc 30.7 g/dL (30.0-36.0); Mean Corpuscular Hemoglobin 23.3 pg (28.0-34.0); Mean Corpuscular Volume 75.7 fl (80-94); Mean Platelet Volume 9.7 fL (7.4-10.4); Monocytes # 0.5 10^3/uL (0.2-0.9); Monocytes % 3.2 %; Neutrophils # 15.41 10^3/uL (1.8-7.7); Neutrophils % 92.7 %; Nucleated Red Blood Cells % 0 %; Platelet Count 413 10^3/cmm (130-400); Red Blood Count 6.06 10^6/uL (4.1-5.3); Red Cell Distribution Width 17.6 % (12.1-15.1); White Blood Count 16.6 10^3/uL (4.0-10.0)
[2023-02-07 18:59] LABS: Alanine Aminotransferase 22 U/L (0-41); Alkaline Phosphatase 98 U/L (40-130); Anion Gap 18.2 (5-19); Aspartate Amino Transferase 16 U/L (0-40); Blood Urea Nitrogen 12 mg/dL (6-20); Calcium 10.9 mg/dL (8.5-10.5); Carbon Dioxide 24 mmol/L (22-29); Chloride 100 mmol/L (98-107); Globulin 3.3 g/dL (1.3-4.6); Glomerular Filtration Rate 75.7 mL/min (90-130); Glucose 173 mg/dL (65-115); Magnesium 2.6 mg/dL (1.7-2.3); Osmolality Calculated 290 mOsm/kg (285-295); Potassium 4.2 mmol/L (3.5-5.1); Sodium 138 mmol/L (136-145); Thyroid Stimulating Hormone 1.27 uIU/mL (0.27-4.20); Total Bilirubin 0.4 mg/dL (0.15-1.2); Total Protein 8.3 g/dL (6.6-8.7)
[2023-02-07 19:01] LABS: Acetaminophen < 5.0 ug/mL (10-30); Alcohol Level < 10 mg/dL (0-10); Salicylate < 0.3 mg/dL (3-10)
[2023-02-07 22:00] LABS: Amphetamines Screen Urine Negative (Negative); Barbiturates Screen Urine Negative (Negative); Benzodiazepines Screen Urine Negative (Negative); Cocaine Screen Urine Negative (Negative); Opiate Screen Urine Negative (Negative); PCP Screen Urine Negative (Negative); THC Screen Urine Positive (Negative)
[2023-02-07] MEDS: acetaminophen 500 mg Tablet 1000 MG PO (22:01)
[2023-02-07 22:03] LABS: Add Urine Microscopic? YES; Amorphous Sediment Urine 3+ /hpf; Bacteria Urine TRACE /hpf; Bilirubin Urine Neg (Negative); Blood Urine Trace (Negative); Glucose Urine UA Norm (Normal); Ketones Urine 1+ (Negative); Leukocyte Esterase Urine Negative (Negative); Mucus Urine 1+ /hpf; Nitrate Urine Negative (Negative); Other Crystals Urine AMM BIURATE /hpf; Protein Urine 1+ (Negative); RBC Urine 0-4 /hpf (0-2); Specific Gravity, Urine 1.025 (1.005-1.030); Squamous Epithelial Cell Urine 0-4 /hpf (0-5); Urine Appearance Cloudy (CLEAR); Urine Color Yellow (Yellow); Urobilinogen Urine Norm (Negative); WBC Urine 0-4 /hpf (0-5); pH Urine 5 (5-7)
[2023-02-07 22:04] LABS: Add Urine Culture? No
[2023-02-07] MEDS: levETIRAcetam 500 mg Tablet PO (22:06)
== END 2023-02-07 22:46 | disposition home or self-care (01) ==
PROVIDERS: Emergency Provider Emergency Medicine; PCP Family Medicine
DX: G40.89 Other seizures (principal); I10 Essential (primary) hypertension; E86.0 Dehydration
CPT/HCPCS: 36415; 70450; 71045; 72125; 80053; 80306; 80307; 81001; 83735; 84146; 84443; 85025; 87040; 93005; 96360; 99285; J7030

== ENCOUNTER 2023-02-17 18:36 | Emergency (ER) | payer MEDICAID, SELFPAY ==
[2023-02-17] VITALS (27 sets, daily range): BP systolic 124–204; BP diastolic 71–124; PULSE 56–79; RESP 14–22; TEMP 36.3; O2SAT 94–100; BMI 23.5
--- NOTE | 2023-02-17 21:44 | W.ED.ABDPA2 ---
HPI - Abdominal Pain General: Chief Complaint: Abdominal Pain Stated Complaint: abdomen pressure, kidney pain, n/v Time Seen by Provider: 02/17/23 21:01 Source: patient and family Mode of arrival: ambulatory History of Present Illness: This patient returns with his abdominal pain symptoms he has been been seen in this emergency department several times in the past. He thinks he is dehydrated. He states he has had decreased intake over the past several days. He denies any fevers or chills but he does have episodes where he sweats. He denies alcohol use and states he has not drank alcohol since last August timeframe. He apparently did have some issues with alcohol withdrawal due to heavy use and thenWithdrawal subsequently. He apparently had a withdrawal related seizure. He does freely admit now that he smokes marijuana on a heavy basis. He denies any other street drugs or substances. The symptoms are exactly those which have prompted him to be in the emergency department on past occasions. Associated Symptoms: Reports nausea; Denies diarrhea, dysuria, hematemesis, melena and syncope Review of Systems Const: Reports: malaise Eyes: Denies: change in vision ENMT: Denies: throat pain, odynophagia, nasal discharge or nasal congestion Card: Denies: chest pain, palpitations, irregular heart rhythm, lightheadedness, syncope or pre-syncope Resp: Denies: dyspnea, productive cough or non-productive cough GI: Reports: abdominal pain and nausea; Denies: hematemesis, diarrhea or melena : Denies: flank pain, difficulty urinating, dysuria or urinary frequency Musc: Denies: neck pain, back pain, extremity pain or extremity swelling Skin/Breast: Denies: rash Neuro: Denies: headache(s), numbness in extremities or weakness in extremities Psych: Denies: panic attacks, visual hallucinations or auditory hallucinations Endo: Reports: excessive sweating PFSH ED PFSH: Medical History Alcohol withdrawal seizure Gastritis Hematochezia Hypertension Surgical History No pertinent past surgical history Family History Denies family history of CAD (coronary artery disease) Social History (Reviewed 02/17/23 @ 21:47 by ISAAC Brody Smoking and tobacco status: smoker, details unknown Alcohol intake: current Alcohol intake frequency: 3 or more drinks per day Alcohol type: beer Counseling given: Yes Physical Exam Narrative: EXAM NARRATIVE: Appears to be in no acute distress but somewhat anxious appearing. Const: COMMON NORMALS: average body habitus, patient oriented x3 and alert GENERAL APPEARANCE: cooperative HENMT: COMMON NORMALS: normocephalic, Normal nasal mucous membranes and turbinates present, moist oral mucous membranes and oropharynx normal HEAD & SCALP: normocephalic NOSE: Normal nasal mucous membranes and turbinates present Eye: COMMON NORMALS: Equal, round and reactive pupils present, conjunctivae normal and no scleral icterus CONJUNCTIVA: Yes conjunctivae normal PUPIL: Yes Equal, round and reactive pupils present Neck/C-Spine: COMMON NORMALS: full ROM, no lymphadenopathy and supple Chest: COMMONS NORMALS: normal inspection of the chest and normal palpation of entire chest wall Resp: COMMON NORMALS: normal respiratory effort, No use of accessory muscles and clear to auscultation bilaterally EFFORT & INSPECTION: Yes able to speak in complete sentences AUSCULTATION: clear to auscultation bilaterally Cardio: COMMON NORMALS: regular rate, regular rhythm, No murmurs present (Cardio) and Peripheral pulses 2+ throughout RATE: regular rate RHYTHM: regular rhythm PERIPHERAL PULSES: Peripheral pulses 2+ throughout GI: COMMON NORMALS: Normal to inspection, nondistended, normoactive bowel sounds present, No hepatosplenomegaly present, no masses and no bruits PALPATION: Yes No hepatosplenomegaly present : COMMON NORMALS: Yes no CVA tenderness BLADDER/KIDNEY EXAM: Yes no CVA tenderness Back/Pelvis: COMMON NORMALS: no CVA tenderness, thoracic and lumbar spine normal to inspection, no thoracic nor lumbar tenderness and straight leg raise negative bilaterally Extremity: COMMON NORMALS: normal to inspection, full ROM, capillary refill normal, no calf tenderness and no pedal edema Neuro: COMMON NORMALS: patient oriented x3, moves all extremities, no focal motor deficits and no sensory deficits noted SENSORIUM/ORIENTATION: Yes alert Psych: COMMON NORMALS: mental status grossly normal and speech normal ATTITUDE: Yes engaged SPEECH: Yes normal speech MOOD & AFFECT: Yes anxious Skin: COMMON NORMALS: no rashes or lesions noted and turgor normal GENERAL SKIN EXAM: no rashes or lesions noted and turgor normal Course Reevaluation(s): Reevaluation #1: Patient subjectively feels better. No emesis or other symptoms while in the emergency department. He has not taken his evening antihypertensive and so therefore his blood pressure is elevated but he normally takes his medications twice daily. He received 2 L of IV fluids. We discussed the need to reduce his marijuana use as this may be a contributing factor to some too many of his symptoms. He also has neurology follow-up follow-up scheduled in the next 2 weeks to reevaluate for his history of seizure disorder. Time: 23:12 Vital Signs: Vital signs: Vital Signs Temperature 97.3 F L 02/17/23 18:48 Pulse Rate 63 02/17/23 22:30 Respiratory Rate 22 H 02/17/23 22:30 Blood Pressure 147/98 02/17/23 22:30 Pulse Oximetry 95 02/17/23 22:30 Oxygen Delivery Me thod 02/17/23 21:24 MDM - Abdominal Pain Medical Decision Making Patient*emergency department symptoms has brought him to our emergency department various times recently. Patient is prior alcoholic who has stated he has been alcohol free for the last 4 to 5 months. He is a daily heavy user of marijuana however. Clinical exam did not not reveal any evidence of surgical abdomen or other concerns at this time. A course of IV hydration, antiemetics, laboratory screening was undertaken. His laboratories are consistent with laboratories that he is had in the past when he is presented with similar complaints and symptoms. He received the benefit of 2 L of lactated Ringer's solution with significant improvement in his symptoms and clinically stable. Had a discussion with both he and his spouse regarding his substance use and its contribution to his recurrent presentations. Both he and his spouse acknowledged our discussion. He is stable to be discharged with outpatient neurology follow-up as planned. He is also to continue his usual antihypertensives. We also discussed return precautions. Medical Records I reviewed the patient's medical records. Lab Data I reviewed the patient's lab results. 02/17/23 21:42 02/17/23 21:42 Labs/Radiology: Laboratory Results WBC 15.5 10^3/uL (4.0-10.0) H 02/17/23 21:42 RBC 6.88 10^6/uL (4.1-5.3) H 02/17/23 21:42 Hgb 16.2 g/dL (11.7-16.6) 02/17/23 21:42 Hct 50.5 % (42.0-52.0) 02/17/23 21:42 MCV 73.4 fl (80-94) L 02/17/23 21:42 MCH 23.5 pg (28.0-34.0) L 02/17/23 21:42 MCHC 32.1 g/dL (30.0-36.0) 02/17/23 21:42 RDW 18.5 % (12.1-15.1) H 02/17/23 21:42 Plt Count 502 10^3/cmm (130-400) H 02/17/23 21:42 MPV 9.9 fL (7.4-10.4) 02/17/23 21:42 Neut % (Auto) 73.3 % 02/17/23 21:42 Lymph % (Auto) 14.0 % 02/17/23 21:42 [place] % (Auto) 10.7 % 02/17/23 21:42 Eos % (Auto) 0.8 % 02/17/23 21:42 Baso % (Auto) 0.2 % 02/17/23 21:42 Neut # (Auto) 11.35 10^3/uL (1.8-7.7) H 02/17/23 21:42 Lymph # (Auto) 2.2 10^3/uL (0.8-4.8) 02/17/23 21:42 [place] # (Auto) 1.7 10^3/uL (0.2-0.9) H 02/17/23 21:42 Eos # (Auto) 0.1 10^3/uL (0.0-0.8) 02/17/23 21:42 Baso # (Auto) 0.0 10^3/uL (0.0-0.1) 02/17/23 21:42 Nucleated RBC % (auto) 0 % 02/17/23 21:42 Nucleated RBCs # 0.0 /100WBC 02/17/23 21:42 Sodium 129 mmol/L (136-145) L 02/17/23 21:42 Potassium 4.5 mmol/L (3.5-5.1) 02/17/23 21:42 Chloride 88 mmol/L (98-107) L 02/17/23 21:42 Carbon Dioxide 24 mmol/L (22-29) 02/17/23 21:42 Anion Gap 21.5 (5-19) H 02/17/23 21:42 BUN 35 mg/dL (6-20) H 02/17/23 21:42 Creatinine 1.5 mg/dL (0.7-1.2) H 02/17/23 21:42 GFR Calculation 53.0 mL/min (90-130) L 02/17/23 21:42 Glucose 108 mg/dL (65-115) 02/17/23 21:42 Calculated Osmolality 277 mOsm/kg (285-295) L 02/17/23 21:42 Calcium 10.7 mg/dL (8.5-10.5) H 02/17/23 21:42 Total Bilirubin 0.5 mg/dL (0.15-1.2) 02/17/23 21:42 AST 13 U/L (0-40) 02/17/23 21:42 ALT 18 U/L (0-41) 02/17/23 21:42 Alkaline Phosphatase 90 U/L (40-130) 02/17/23 21:42 Total Protein 8.8 g/dL (6.6-8.7) H 02/17/23 21:42 Albumin 5.2 g/dL (3.5-5.2) 02/17/23 21:42 Globulin 3.6 g/dL (1.3-4.6) 02/17/23 21:42 Lipase 17 U/L (13-60) 02/17/23 21:42 TSH 1.34 uIU/mL (0.27-4.20) 02/17/23 21:42 Discharge Plan Discharge Patient Disposition: Home Clinical Impression: Volume depletion, Cannabis use disorder Condition: Stable Prescriptions: No Action losartan 25 mg tablet 25 mg PO DAILY Qty: 90 0RF pantoprazole 40 mg tablet,delayed release (DR/EC) See Rx Instructions .ROUTE .COMPLEX Qty: 90 3RF Dose Instruction: Take 1 tablet by mouth once daily Rx Instructions: Take 1 tablet by mouth once daily atenolol 25 mg tablet 25 mg PO BID Qty: 60 3RF citalopram 20 mg tablet 40 mg PO DAILY ferrous sulfate 325 mg (65 mg iron) tablet 325 mg PO EVERY OTHER DAY Qty: 90 0RF Keppra 500 mg tablet 500 mg PO Q12H Qty: 60 1RF Discharge Orders: Discharge ED (Routine); Ordered 02/17/23 Ordered By: Efra Martinez Referrals: Angel Boston MD [Primary Care Provider] - Discharge Diet: Regular Discharge Activity: Increase activity as tolerated Patient Instructions: Opioid Safety, Pain Management Activity Restrictions/Additional Instructions: Avoid marijuana use as it may be contributing to your symptoms. Make sure you to eat a regular diet and salt your food at the table to help restore your low sodium. Follow-up with your primary care doctor in approximately 2 weeks for reevaluation of your laboratories to ensure they are normal. Follow-up with the neurologist as scheduled. If you have any recurrent symptoms you are welcome to return to the emergency department at any time. Coding Level of Care Code ED Set Up [employer] for [employer] Barakat
[2023-02-17] MEDS: lactated ringers 1,000 ML 999 ML IV ×2 (21:51→22:40)
[2023-02-17] MEDS: diphenhydrAMINE 50 mg/mL SDV 1mL 12.5 MG IVP (21:51)
[2023-02-17] MEDS: haloperidol inj 5 mg/mL INJ 1 mL IVP (21:51)
--- NOTE | 2023-02-17 21:56 | PC.NURSE ---
Patient placed on cardiac monitoring, BP and pulse ox at this time
[2023-02-17 22:30] LABS: Basophils % 0.2 %; Eosinophils # 0.1 10^3/uL (0.0-0.8); Eosinophils % 0.8 %; Hematocrit 50.5 % (42.0-52.0); Hemoglobin 16.2 g/dL (11.7-16.6); Lymphocytes # 2.2 10^3/uL (0.8-4.8); Mean Corpuscular HGB Conc 32.1 g/dL (30.0-36.0); Mean Corpuscular Hemoglobin 23.5 pg (28.0-34.0); Mean Corpuscular Volume 73.4 fl (80-94); Mean Platelet Volume 9.9 fL (7.4-10.4); Monocytes # 1.7 10^3/uL (0.2-0.9); Monocytes % 10.7 %; Neutrophils # 11.35 10^3/uL (1.8-7.7); Neutrophils % 73.3 %; Nucleated Red Blood Cells % 0 %; Platelet Count 502 10^3/cmm (130-400); Red Blood Count 6.88 10^6/uL (4.1-5.3); Red Cell Distribution Width 18.5 % (12.1-15.1); White Blood Count 15.5 10^3/uL (4.0-10.0)
[2023-02-17 22:33] LABS: Alanine Aminotransferase 18 U/L (0-41); Albumin Level 5.2 g/dL (3.5-5.2); Alkaline Phosphatase 90 U/L (40-130); Anion Gap 21.5 (5-19); Aspartate Amino Transferase 13 U/L (0-40); Blood Urea Nitrogen 35 mg/dL (6-20); Calcium 10.7 mg/dL (8.5-10.5); Carbon Dioxide 24 mmol/L (22-29); Chloride 88 mmol/L (98-107); Globulin 3.6 g/dL (1.3-4.6); Glucose 108 mg/dL (65-115); Lipase 17 U/L (13-60); Osmolality Calculated 277 mOsm/kg (285-295); Potassium 4.5 mmol/L (3.5-5.1); Sodium 129 mmol/L (136-145); Thyroid Stimulating Hormone 1.34 uIU/mL (0.27-4.20); Total Bilirubin 0.5 mg/dL (0.15-1.2); Total Protein 8.8 g/dL (6.6-8.7)
[2023-02-18] VITALS: BP 184/114; PULSE 70; RESP 13; O2SAT 96
[2023-02-18 00:05] VITALS: BP 184/114; PULSE 66; RESP 22; O2SAT 96
[2023-02-18 00:17] VITALS: BP 150/96; PULSE 72; RESP 12; O2SAT 97
== END 2023-02-18 00:20 | disposition home or self-care (01) ==
PROVIDERS: Emergency Provider Emergency Medicine; PCP Family Medicine
DX: F12.90 Cannabis use, unspecified, uncomplicated (principal); E86.9 Volume depletion, unspecified; I10 Essential (primary) hypertension; F17.210 Nicotine dependence, cigarettes, uncomplicated
CPT/HCPCS: 80053; 83690; 84443; 85025; 96361; 96374; 96375; 99284; J1200; J1630; J7120

== ENCOUNTER 2023-03-21 09:24 | Emergency (ER) | payer MEDICAID, SELFPAY ==
[2023-03-21] VITALS (8 sets, daily range): BP systolic 125–193; BP diastolic 82–139; PULSE 53–71; RESP 15–18; TEMP 36.4; O2SAT 91–100
[2023-03-21 10:02] LABS: Basophils % 0.1 %; Eosinophils % 0.2 %; Hematocrit 43.7 % (42.0-52.0); Hemoglobin 13.6 g/dL (11.7-16.6); Lymphocytes # 0.6 10^3/uL (0.8-4.8); Mean Corpuscular HGB Conc 31.1 g/dL (30.0-36.0); Mean Corpuscular Hemoglobin 24.4 pg (28.0-34.0); Mean Corpuscular Volume 78.5 fl (80-94); Mean Platelet Volume 9.3 fL (7.4-10.4); Monocytes # 0.4 10^3/uL (0.2-0.9); Monocytes % 4.2 %; Neutrophils # 8.82 10^3/uL (1.8-7.7); Neutrophils % 88.8 %; Nucleated Red Blood Cells % 0 %; Platelet Count 272 10^3/cmm (130-400); Red Blood Count 5.57 10^6/uL (4.1-5.3); Red Cell Distribution Width 17.2 % (12.1-15.1); White Blood Count 9.9 10^3/uL (4.0-10.0)
[2023-03-21] MEDS: ondansetron 2 mg/ML SDV 2 mL 4 MG IVP (10:11)
[2023-03-21 10:26] LABS: Alanine Aminotransferase 23 U/L (0-41); Albumin Level 4.8 g/dL (3.5-5.2); Alkaline Phosphatase 79 U/L (40-130); Anion Gap 18.4 (5-19); Aspartate Amino Transferase 16 U/L (0-40); Blood Urea Nitrogen 15 mg/dL (6-20); Calcium 9.6 mg/dL (8.5-10.5); Carbon Dioxide 22 mmol/L (22-29); Chloride 101 mmol/L (98-107); Creatinine Clr Calc Pharmacy 128.1123; Globulin 2.8 g/dL (1.3-4.6); Glucose 93 mg/dL (65-115); Osmolality Calculated 285 mOsm/kg (285-295); Potassium 4.4 mmol/L (3.5-5.1); Sodium 137 mmol/L (136-145); Total Bilirubin 0.2 mg/dL (0.15-1.2); Total Protein 7.6 g/dL (6.6-8.7)
--- NOTE | 2023-03-21 10:26 | CTR_ITS ---
PROCEDURE INFORMATION: Exam: CT Head Without Contrast Exam date and time: 03/21/2023 10:34 AM Age: 38 years old Clinical indication: Other: Seizure, ; additional info: Seizure, closed head injury TECHNIQUE: Imaging protocol: Computed tomography of the head without contrast. Radiation optimization: All CT scans at this facility use at least one of these dose optimization techniques: automated exposure control; mA and/or kV adjustment per patient size (includes targeted exams where dose is matched to clinical indication); or iterative reconstruction. REPORTING DATA: Count of CT and Cardiac NM exams in prior 12 months: This patient has received 8 known CTs and 0 known cardiac nuclear medicine studies in the 12 months prior to the current study. COMPARISON: CT head wo con* [id number] 02/07/2023 6:23 PM RADIATION DOSE METRICS: Total DLP (mGy-cm): 1075.74 FINDINGS: Brain: No acute post-traumatic brain injury. Symmetric caliber of the cortical sulci. Normal benavides-white matter differentiation. Cerebral ventricles: Normal configuration of the ventricles. Paranasal sinuses: No sinus fluid. Mastoid air cells: No mastoid effusion. Bones/joints: No acute calvarial injury. Soft tissues: No significant scalp hematoma. CT/CT head wo con* [id number] IMPRESSION: No acute post-traumatic brain injury.
--- NOTE | 2023-03-21 11:45 | W.ED.SEIZURE ---
HPI - Seizure General: Chief Complaint: Seizure Stated Complaint: SEIZURE Time Seen by Provider: 03/21/23 09:25 Source: patient Mode of arrival: EMS History of Present Illness: HPI Narrative: 38-year-old male presents emergency room after a seizure. He has a known history of seizure disorders. He had no interventions prior to arrival. He has had 3 seizures over the last 2 days last one was approximately 2 minutes tonic-clonic type seizures witnessed by bystanders. He denies missing any doses of his medications he is on Keppra 500 twice daily. He is also on citalopram losartan pantoprazole and atenolol. He is awake and alert and oriented at this time he is somewhat hypertensive on arrival. He is able to give a good history. MD complaint: seizure Onset (ago): minute(s) Description of Episode: tonic-clonic movement Duration of episode: 2 -: minutes(s) Witnessed: Yes - by Bystander Trauma: No Seizure History: Yes Place: Home Associated symptoms: Deny chest pain, chills, confusion, cough, diaphoresis, fever(s), anorexia, malaise, rash, short of breath, syncope or weakness Treatments prior to arrival: none Review of Systems Const: Denies: fever(s), chills, malaise or diaphoresis ENMT: Denies: throat pain, ear or mastoid pain, nasal discharge or nasal congestion Card: Denies: chest pain or syncope Resp: Denies: dyspnea, productive cough or non-productive cough GI: Denies: abdominal pain, nausea, vomiting, hematemesis, coffee ground emesis, diarrhea, constipation, bloating, hematochezia or melena : Denies: flank pain, dysuria, urinary frequency or urinary urgency Skin/Breast: Denies: rash or pruritus Neuro: Denies: confusion PFSH ED PFSH: Medical History Alcohol withdrawal seizure Gastritis Hematochezia Hypertension Surgical History No pertinent past surgical history Family History Denies family history of CAD (coronary artery disease) Social History Smoking and tobacco status: smoker, details unknown Alcohol intake: current Alcohol intake frequency: 3 or more drinks per day Alcohol type: beer Counseling given: Yes Substance/Drug Use: current Physical Exam Const: GENERAL APPEARANCE: cooperative and comfortable ORIENTATION/CONSCIOUSNESS: Yes awake, Yes oriented to person, Yes oriented to place and Yes oriented to time HENMT: COMMON NORMALS: normocephalic, atraumatic and hearing grossly normal bilaterally HEAD & SCALP: normocephalic and atraumatic Resp: COMMON NORMALS: normal respiratory effort, No retractions, No use of accessory muscles and clear to auscultation bilaterally AUSCULTATION: clear to auscultation bilaterally Cardio: COMMON NORMALS: regular rate, regular rhythm and No murmurs present (Cardio) RATE: regular rate RHYTHM: regular rhythm GI: COMMON NORMALS: Soft to palpation and No hepatosplenomegaly present AUSCULTATION: Yes normoactive bowel sounds PALPATION: Yes Soft to palpation, No Tenderness to palpation present (GI), No Guarding due to palpation present (GI) and Yes No hepatosplenomegaly present Extremity: COMMON NORMALS: normal to inspection, capillary refill normal, no clubbing, cyanosis or edema, no calf tenderness and no pedal edema Neuro: SENSORIUM/ORIENTATION: Yes oriented to person, Yes oriented to place and Yes oriented to time Skin: COMMON NORMALS: no rashes or lesions noted GENERAL SKIN EXAM: no rashes or lesions noted Course Vital Signs: Vital signs: Vital Signs Temperature 97.6 F 03/21/23 09:28 Pulse Rate 53 L 03/21/23 12:43 Respiratory Rate 15 03/21/23 10:45 Blood Pressure 193/97 03/21/23 12:43 Pulse Oximetry 95 03/21/23 12:43 Oxygen Delivery Me thod Room Air 03/21/23 09:28 MDM - Seizure MDM Narrative Medical decision making narrative: Patient has had several breakthrough seizures recently. He is trying to get into see neurology but his appointment is sometime off. He does use marijuana denies any other illicit drugs. Labs and imaging reviewed with the patient no significant brain bleed or no other findings on his laboratory studies. He denies any other illicit drug use. Discussed with the medical marijuana could lower his seizure threshold. He was hypertensive as well. We discharge the patient home. We will change him from atenolol to Toprol XL in hopes of better blood pressure control. Additionally we will increase his Keppra and change him from 500 twice daily to 750 XR 2 tablets once daily. We will have case management try to expedite his appointment with neurology. Medical Records Attestation: I reviewed the patient's medical records. Lab Data Attestation: I reviewed the patient's lab results. 03/21/23 09:44 03/21/23 09:44 Labs: Radiology Impressions Head CT 03/21/23 10:26 IMPRESSION: No acute post-traumatic brain injury. Laboratory Results WBC 9.9 10^3/uL (4.0-10.0) 03/21/23 09:44 RBC 5.57 10^6/uL (4.1-5.3) H 03/21/23 09:44 Hgb 13.6 g/dL (11.7-16.6) 03/21/23 09:44 Hct 43.7 % (42.0-52.0) 03/21/23 09:44 MCV 78.5 fl (80-94) L 03/21/23 09:44 MCH 24.4 pg (28.0-34.0) L 03/21/23 09:44 MCHC 31.1 g/dL (30.0-36.0) 03/21/23 09:44 RDW 17.2 % (12.1-15.1) H 03/21/23 09:44 Plt Count 272 10^3/cmm (130-400) 03/21/23 09:44 MPV 9.3 fL (7.4-10.4) 03/21/23 09:44 Neut % (Auto) 88.8 % 03/21/23 09:44 Lymph % (Auto) 6.0 % 03/21/23 09:44 [place] % (Auto) 4.2 % 03/21/23 09:44 Eos % (Auto) 0.2 % 03/21/23 09:44 Baso % (Auto) 0.1 % 03/21/23 09:44 Neut # (Auto) 8.82 10^3/uL (1.8-7.7) H 03/21/23 09:44 Lymph # (Auto) 0.6 10^3/uL (0.8-4.8) L 03/21/23 09:44 [place] # (Auto) 0.4 10^3/uL (0.2-0.9) 03/21/23 09:44 Eos # (Auto) 0.0 10^3/uL (0.0-0.8) 03/21/23 09:44 Baso # (Auto) 0.0 10^3/uL (0.0-0.1) 03/21/23 09:44 Nucleated RBC % (auto) 0 % 03/21/23 09:44 Nucleated RBCs # 0.0 /100WBC 03/21/23 09:44 Sodium 137 mmol/L (136-145) 03/21/23 09:44 Potassium 4.4 mmol/L (3.5-5.1) 03/21/23 09:44 Chloride 101 mmol/L (98-107) 03/21/23 09:44 Carbon Dioxide 22 mmol/L (22-29) 03/21/23 09:44 Anion Gap 18.4 (5-19) 03/21/23 09:44 BUN 15 mg/dL (6-20) 03/21/23 09:44 Creatinine 0.9 mg/dL (0.7-1.2) 03/21/23 09:44 GFR Calculation 95.0 mL/min (90-130) 03/21/23 09:44 Glucose 93 mg/dL (65-115) 03/21/23 09:44 Calculated Osmolality 285 mOsm/kg (285-295) 03/21/23 09:44 Calcium 9.6 mg/dL (8.5-10.5) 03/21/23 09:44 Magnesium 2.0 mg/dL (1.7-2.3) 03/21/23 09:44 Total Bilirubin 0.2 mg/dL (0.15-1.2) 03/21/23 09:44 AST 16 U/L (0-40) 03/21/23 09:44 ALT 23 U/L (0-41) 03/21/23 09:44 Alkaline Phosphatase 79 U/L (40-130) 03/21/23 09:44 Total Protein 7.6 g/dL (6.6-8.7) 03/21/23 09:44 Albumin 4.8 g/dL (3.5-5.2) 03/21/23 09:44 Globulin 2.8 g/dL (1.3-4.6) 03/21/23 09:44 Discharge Plan Discharge Patient Disposition: Home Clinical Impression: Seizure Condition: Stable Prescriptions: New Toprol XL 50 mg tablet extended release 24 hr 50 mg PO DAILY Qty: 30 0RF Keppra XR 750 mg tablet extended release 24 hr 1,500 mg PO DAILY Qty: 60 0RF Discontinued atenolol 25 mg tablet 25 mg PO BID Qty: 60 3RF levetiracetam [Keppra] 500 mg tablet 500 mg PO Q12H Qty: 60 1RF No Action losartan 25 mg tablet 25 mg PO DAILY Qty: 90 0RF pantoprazole 40 mg tablet,delayed release (DR/EC) See Rx Instructions .ROUTE .COMPLEX Qty: 90 3RF Dose Instruction: Take 1 tablet by mouth once daily Rx Instructions: Take 1 tablet by mouth once daily citalopram 20 mg tablet 20 mg PO DAILY Flintstones Complete Tablet,Chewable 1 tab PO DAILY Discharge Orders: Discharge ED (Routine); Ordered 03/21/23 Ordered By: Deniz Sanz Referrals: Angel Boston MD [Primary Care Provider] - Patient Instructions: Opioid Safety, Pain Management Activity Restrictions/Additional Instructions: You were seen today for seizures. Recommend that you increase your Keppra dose. You are given a prescription for extended release 750 mg take 2 tablets once daily. Your blood pressure is also elevated while you are in the emergency room recommend you switch from atenolol to Toprol-XL 50 mg once daily and follow-up with your primary care doctor within the week to reevaluate your blood pressure. Case management will work with the neurology clinic to try to have your appointment moved up sooner with Dr. Soler. Coding Level of Care Code ED Athletics Director for [employer]ak[employer]
--- NOTE | 2023-03-22 14:22 | DCPLANNER ---
Addendum entered by Marva Graves 04/06/23 14:56: Patient had a follow up appointment scheduled with neurology - patient did attend appointment Addendum entered by Marva Graves 03/30/23 11:55: Patient has a follow up appointment scheduled for March at 9:[address] Soler at neurology. Original Note: vendor manager had message to schedule a follow up appointment for patient with neurology. vendor manager sent patients information to the front office staff at neurology. Patients information will be printed and reviewed. Clinic will call patient with appointment information.
== END 2023-03-21 12:46 | disposition home or self-care (01) ==
PROVIDERS: Emergency Provider Family Medicine; PCP Family Medicine
DX: R56.9 Unspecified convulsions (principal); I10 Essential (primary) hypertension; F17.200 Nicotine dependence, unspecified, uncomplicated
CPT/HCPCS: 70450; 80053; 83735; 85025; 96365; 96366; 99285; J1953; J2405

== ENCOUNTER 2023-04-05 14:57 | Outpatient (CLI) | payer MEDICAID, SELFPAY ==
--- NOTE | 2023-04-05 15:10 | XRR_ITS ---
PROCEDURE INFORMATION: Exam: XR Cervical Spine Exam date and time: 04/05/2023 3:11 PM Age: 38 years old Clinical indication: Injury or trauma; Other: Seizure; Sprain or strain, cervical ligaments; Prior surgery; Surgery date: 6+ months; Surgery type: Plate in c4-c5; Additional info: S19.9xxa - unspecified injury of neck, initial encounter TECHNIQUE: Imaging protocol: Radiologic exam of the cervical spine. Views: 2 or 3 views. COMPARISON: CT cervical spin wo con* [id number] 02/07/2023 6:27 PM FINDINGS: Bones/joints: Cervical curvature and alignment is unremarkable. Prior ACDF C4-C6 with C5 corpectomy unchanged in appearance. Hardware is intact. Bone metal interface is unremarkable. Mild spondylitic changes C6-C7 and C7-T1. No fracture, subluxation or spondylolisthesis. Soft tissues: Unremarkable. XR/XR cervical spine 3V* [id number] IMPRESSION: 1. No acute bony abnormalities. 2. Prior ACDF C4-C6 with maintained anatomic alignment. No evidence of hardware failure.
== END 2023-04-05 14:58 | disposition home or self-care (01) ==
LOC: RAD 15:01
PROVIDERS: PCP Family Medicine; Visit Provider Psychiatry & Neurology Neurology
DX: S19.9XXA Unspecified injury of neck, initial encounter (principal); Z98.1 Arthrodesis status; X58.XXXA Exposure to other specified factors, initial encounter
CPT/HCPCS: 36415; 72040; 80177

== ENCOUNTER 2023-04-15 09:00 | Emergency (ER) | payer MEDICAID, SELFPAY ==
--- NOTE | 2023-04-15 09:04 | ED_ITS ---
HPI - Nausea/Vomiting/Diarrhea General: Chief complaint: Nausea/Vomiting/Diarrhea Stated complaint: n/v since wednesday Time Seen by Provider: 04/15/23 09:03 History of Present Illness: Mr. Holbrook is a 38-year-old gentleman presenting to the emergency department for abdominal pain with nausea and vomiting. He reports worsening symptoms starting 3 days ago however has been having intermittent symptoms for some period of time. He is in the process of being evaluated in the outpatient setting. He endorses decreased p.o. intake, recurrent nausea vomiting, decreased stool and urine output, abdominal pain with radiation to the chest, and generalized weakness/dehydration feeling. Intensity is moderate-severe. Course has worsened. No other specific changes in health, exacerbating, or alleviating factors identified. Onset (ago): day(s) Description of vomiting: watery Description of diarrhea: watery Associated nausea: Yes Associated abdominal pain: Yes Location of pain: Diffuse Severity: moderate Quality: cramping, stabbing and aching Exacerbating factors: eating Associated symtoms: Reports nausea Review of Systems General: Reports: 10 or more systems reviewed and unremarkable except in HPI and below GI: Reports: nausea PFSH ED PFSH: Medical History Alcohol withdrawal seizure Gastritis Hematochezia Hypertension Surgical History No pertinent past surgical history Family History Mother Seizures Denies family history of CAD (coronary artery disease) Social History Smoking and tobacco status: smoker, details unknown Alcohol intake: current Alcohol intake frequency: 3 or more drinks per day Alcohol type: beer Counseling given: Yes Substance/Drug Use: current Physical Exam Const: COMMON NORMALS: alert GENERAL APPEARANCE: cooperative and well deve carlyd HENMT: COMMON NORMALS: normocephalic and atraumatic HEAD & SCALP: normocephalic and atraumatic THROAT: posterior oropharynx normal Eye: COMMON NORMALS: conjunctivae normal CONJUNCTIVA: Yes conjunctivae nor mal SCLERA: sclerae normal Neck/C-Spine: COMMON NORMALS: supple GENERAL: Yes trachea midline Resp: COMMON NORMALS: clear to auscultation bilaterally EFFORT & INSPECTION: Yes able to speak in complete sentences AUSCULTATION: clear to auscultation bilaterally Cardio: COMMON NORMALS: regular rate and regular rhythm RATE: regular rate RHYTHM: regular rhythm GI: COMMON NORMALS: Soft to palpation PALPATION: Yes Soft to palpation, Yes Tenderness to palpation present (GI), No Guarding due to palpation present (GI) and No Rigid due to palpation Extremity: GENERAL: Yes normal exam except as noted and No edema Neuro: COMMON NORMALS: moves all extremities SENSORIUM/ORIENTATION: Yes alert and No Orientation impaired Psych: COMMON NORMALS: mental status grossly normal and Normal thought process present THOUGHT PROCESS: Normal thought process present Course Vital Signs: Vital signs: Vital Signs Temperature 97.8 F 04/15/23 09:09 Pulse Rate 69 04/15/23 12:35 Respiratory Rate 18 04/15/23 09:09 Blood Pressure 174/105 04/15/23 12:35 Pulse Oximetry 97 04/15/23 12:35 Oxygen Delivery Me thod Room Air 04/15/23 09:09 MDM - Nausea/Vomiting/Diarrhea Medical Decision Making 38-year-old gentleman presenting with abdominal symptoms. Mildly ill in appearance however nontoxic. No evidence of acute surgical abdomen. Labs notable for leukocytosis and hemoconcentration. Dehydration on metabolic panel.. No UTI. Patient scheduled for outpatient MRI today and given overall abdominal exam and reassessment medication for imaging that would delay patient's MRI. Patient improved with IV fluids, antiemetic, Valium. He is able to tolerate p.o. intake. Exact etiology of symptoms is unclear though is appropriate for further outpatient evaluation. The results of ED evaluation were discussed with the patient including prescriptions and/or symptomatic cares (if applicable) including appropriate and responsible use, followup plan, and return precautions. The patient verbalized understanding and felt safe for discharge. Medical Records I reviewed the patient's medical records. Lab Data I reviewed the patient's lab results. 04/15/23 09:32 04/15/23 10:25 Laboratory Results WBC 15.9 10^3/uL (4.0-10.0) H 04/15/23 09:32 RBC 7.03 10^6/uL (4.1-5.3) H 04/15/23 09:32 Hgb 17.7 g/dL (11.7-16.6) H 04/15/23 09:32 Hct 52.4 % (42.0-52.0) H 04/15/23:32 MCV 74.5 fl (80-94) L 04/15/23 09: MCH 25.2 pg (28.0-34.0) L 04/15/23 09: MCHC 33.8 g/dL (30.0-36.0) 04/15/23 09: RDW 17.6 % (12.1-15.1) H 04/15/23 09:32 Plt Count 445 10^3/cmm (130-400) H 04/15/23 09:32 MPV 9.6 fL (7.4-10.4) 04/15/23 09: Neut % (Auto) 77.8 % 04/15/23 09: Lymph % (Auto) 8.8 % 04/15/23: [place] % (Auto) 12.2 % 04/15/23 09: Eos % (Auto) 0.2 % 04/15/23 09:32 Baso % (Auto) 0.1 % 04/15/23 09: Neut # (Auto) 12.34 10^3/uL (1.8-7.7) H 04/15/23 09:32 Lymph # (Auto) 1.4 10^3/uL (0.8-4.8) 04/15/23 09:32 [place] # (Auto) 1.9 10^3/uL (0.2-0.9) H 04/15/23: Eos # (Auto) 0.0 10^3/uL (0.0-0.8) 04/15/23 09: Baso # (Auto) 0.0 10^3/uL (0.0-0.1) 04/15/23: Nucleated RBC % (auto) 0 % 04/15/23: Nucleated RBCs # 0.0 /100WBC 04/15/23 09:32 Sodium 127 mmol/L (136-145) L 04/15/23 10:25 Potassium 4.4 mmol/L (3.5-5.1) 04/15/23 10:25 Chloride 87 mmol/L (98-107) L 04/15/23 10:25 Carbon Dioxide 25 mmol/L (22-29) 04/15/23 10:25 Anion Gap 19.4 (5-19) H 04/15/23 10:25 BUN 49 mg/dL (6-20) H 04/15/23 10:25 Creatinine 1.6 mg/dL (0.7-1.2) H 04/15/23 10:25 GFR Calculation 48.9 mL/min (90-130) L 04/15/23 10:25 Glucose 101 mg/dL (65-115) 04/15/23 10:25 Calculated Osmolality 277 mOsm/kg (285-295) L 04/15/23 10:25 Calcium 9.5 mg/dL (8.5-10.5) 04/15/23 10:25 Magnesium 3.0 mg/dL (1.7-2.3) H 04/15/23 10:25 Total Bilirubin 1.0 mg/dL (0.15-1.2) 04/15/23 10:25 AST 23 U/L (0-40) 04/15/23 10:25 ALT 14 U/L (0-41) 04/15/23 10:25 Alkaline Phosphatase 89 U/L (40-130) 04/15/23 10:25 Total Protein 7.6 g/dL (6.6-8.7) 04/15/23 10:25 Albumin 4.5 g/dL (3.5-5.2) 04/15/23 10:25 Globulin 3.1 g/dL (1.3-4.6) 04/15/23 10:25 Lipase 23 U/L (13-60) 04/15/23 10:25 Urine Color Yellow (Yellow) 04/15/23 11:18 Urine Appearance Sl cloudy (CLEAR) A 04/15/23 11:18 Urine pH 5 (5-7) 04/15/23 11:18 Ur Specific [place] 1.015 (1.005-1.030) 04/15/23 11:18 Urine Protein Trace (Negative) 04/15/23 11:18 Urine Glucose (UA) Trace (Normal) H 04/15/23 11:18 Urine Ketones Negative (Negative) 04/15/23 11:18 Urine Blood Trace (Negative) H 04/15/23 11:18 Urine Nitrate Negative (Negative) 04/15/23 11:18 Urine Bilirubin Neg (Negative) 04/15/23 11:18 Urine Urobilinogen Norm mg/dL (Negative) 04/15/23 11:18 Ur Leukocyte Esterase Negative (Negative) 04/15/23 11:18 Urine RBC None /hpf (0-2) 04/15/23 11:18 Urine WBC 0-4 /hpf (0-5) H 04/15/23 11:18 Ur Squamous Epith Cells 0-4 /hpf (0-5) H 04/15/23 11:18 Amorphous Sediment Not Reportable 04/15/23 11:18 Urine Bacteria 2+ /hpf (NONE) H 04/15/23 11:18 Hyaline Casts 0-4 /lpf H 04/15/23 11:18 Discharge Plan Discharge Patient Disposition: Home Clinical Impression: Nausea and vomiting, MEHUL (acute kidney injury), Abdominal pain, Dehydration Condition: Stable Prescriptions: New ondansetron 4 mg tablet,disintegrating 4 mg PO Q8H PRN (Reason: nausea and vomiting) Qty: 15 0RF oxycodone 5 mg tablet 5 mg PO Q4H PRN (Reason: pain) Qty: 10 0RF No Action losartan 25 mg tablet 25 mg PO DAILY Qty: 90 0RF pantoprazole 40 mg tablet,delayed release (DR/EC) See Rx Instructions .ROUTE .COMPLEX Qty: 90 3RF Dose Instruction: Take 1 tablet by mouth once daily Rx Instructions: Take 1 tablet by mouth once daily levetiracetam [Keppra XR] 750 mg tablet extended release 24 hr 1,500 mg PO DAILY Qty: 60 0RF metoprolol succinate [Toprol XL] 50 mg tablet extended release 24 hr 50 mg PO DAILY Qty: 30 0RF citalopram 20 mg tablet 20 mg PO DAILY [place] Complete Tablet,Chewable 1 tab PO DAILY Discharge Orders: Discharge ED (Routine); Ordered 04/15/23 Ordered By: Denis Lucio Referrals: Angel Boston MD [Primary Care Provider] - Discharge Diet: Advance as tolerated and Clear Liquid Discharge Activity: Increase activity as tolerated Patient Instructions: Dehydration (ED), Abdominal Pain (ED), Opioid Safety Activity Restrictions/Additional Instructions: Thank you for visiting the emergency department. You are seen evaluated for nausea, vomiting, abdominal pain. You were found to have fairly significant dehydration. Given that you are supposed to have MRI shortly later today I recommend going to that. You may use [id number] medications such as acetaminophen and ibuprofen for pain however please do not exceed the daily recommended dosage as listed on the packaging and please keep in mind that many namebrand medications contain the same active ingredients. Please avoid these medications if previously instructed to do so by another physician due to other underlying medical condition. I will also prescribe oxycodone for pain and ondansetron for nausea and vomiting. Please ensure that you are staying hydrated. Follow-up with your primary care provider. Return to the emergency department for worsening symptoms or anything else that you are concerned about and feel needs emergency room evaluation. Coding Level of Care Code ED [employer] for [employer]
[2023-04-15 09:09] VITALS: BP 167/104; PULSE 80; RESP 18; TEMP 36.6; O2SAT 99; BMI 23.7
[2023-04-15] MEDS: ondansetron 2 mg/ML SDV 2 mL 4 MG IVP (09:35)
[2023-04-15] MEDS: lactated ringers 1,000 ML 999 ML IV ×2 (09:36→10:32)
[2023-04-15 09:41] VITALS: BP 157/107; PULSE 77; O2SAT 99
[2023-04-15 09:42] LABS: Basophils % 0.1 %; Eosinophils % 0.2 %; Hematocrit 52.4 % (42.0-52.0); Hemoglobin 17.7 g/dL (11.7-16.6); Lymphocytes # 1.4 10^3/uL (0.8-4.8); Lymphocytes % 8.8 %; Mean Corpuscular HGB Conc 33.8 g/dL (30.0-36.0); Mean Corpuscular Hemoglobin 25.2 pg (28.0-34.0); Mean Corpuscular Volume 74.5 fl (80-94); Mean Platelet Volume 9.6 fL (7.4-10.4); Monocytes # 1.9 10^3/uL (0.2-0.9); Monocytes % 12.2 %; Neutrophils # 12.34 10^3/uL (1.8-7.7); Neutrophils % 77.8 %; Nucleated Red Blood Cells % 0 %; Platelet Count 445 10^3/cmm (130-400); Red Blood Count 7.03 10^6/uL (4.1-5.3); Red Cell Distribution Width 17.6 % (12.1-15.1); White Blood Count 15.9 10^3/uL (4.0-10.0)
[2023-04-15 10:57] LABS: Alanine Aminotransferase 14 U/L (0-41); Albumin Level 4.5 g/dL (3.5-5.2); Alkaline Phosphatase 89 U/L (40-130); Blood Urea Nitrogen 49 mg/dL (6-20); Calcium 9.5 mg/dL (8.5-10.5); Carbon Dioxide 25 mmol/L (22-29); Chloride 87 mmol/L (98-107); Globulin 3.1 g/dL (1.3-4.6); Glomerular Filtration Rate 48.9 mL/min (90-130); Glucose 101 mg/dL (65-115); Lipase 23 U/L (13-60); Osmolality Calculated 277 mOsm/kg (285-295); Sodium 127 mmol/L (136-145); Total Protein 7.6 g/dL (6.6-8.7)
[2023-04-15 11:01] LABS: Anion Gap 19.4 (5-19); Aspartate Amino Transferase 23 U/L (0-40); Potassium 4.4 mmol/L (3.5-5.1)
[2023-04-15] MEDS: diazePAM 5 mg Tablet PO (11:30)
[2023-04-15 12:00] LABS: Add Urine Microscopic? YES; Bilirubin Urine Neg (Negative); Blood Urine Trace (Negative); Glucose Urine UA Trace (Normal); Ketones Urine Negative (Negative); Leukocyte Esterase Urine Negative (Negative); Nitrate Urine Negative (Negative); Protein Urine Trace (Negative); Specific Gravity, Urine 1.015 (1.005-1.030); Urine Color Yellow (Yellow); Urobilinogen Urine Norm (Negative); pH Urine 5 (5-7)
[2023-04-15 12:02] LABS: Squamous Epithelial Cell Urine 0-4 /hpf (0-5); WBC Urine 0-4 /hpf (0-5)
[2023-04-15 12:03] LABS: Bacteria Urine 2+ /hpf; Hyaline Casts Urine 0-4 /lpf
[2023-04-15 12:35] VITALS: BP 174/105; PULSE 69; O2SAT 97
== END 2023-04-15 12:37 | disposition home or self-care (01) ==
PROVIDERS: Emergency Provider Emergency Medicine; PCP Family Medicine
DX: N17.9 Acute kidney failure, unspecified (principal); E86.0 Dehydration; I10 Essential (primary) hypertension; F17.210 Nicotine dependence, cigarettes, uncomplicated
CPT/HCPCS: 36415; 80053; 81001; 83690; 83735; 85025; 96361; 96374; 99284; J2405; J7120

== ENCOUNTER 2023-04-15 13:14 | Outpatient (CLI) | payer MEDICAID, SELFPAY ==
--- NOTE | 2023-04-15 13:00 | MR_ITS ---
WS: [id number] MRI BRAIN WITH AND WITHOUT CONTRAST HISTORY: R56.9 - Unspecified convulsions COMPARISON: Noncontrast CT head 03/21/2023 TECHNIQUE: Multiplanar imaging performed through the brain with MultiHance 19 ml's IV. No acute infarcts are seen. Cotton-white matter differentiation is well preserved. No susceptibility artifacts or prior lacunar infarcts. Ventricles and extra-axial spaces are normal. Clivus and pituitary gland are normal. Visualized posterior fossa and brainstem are also normal. Postcontrast images are negative for masses or vascular malformations. Dural venous sinuses are normal. Paranasal sinuses: Well aerated with no significant disease. Mastoid air cells: Normal. Calvarium and scalp: Normal. MR/MR head wo/w con [id number] IMPRESSION: 1. Normal MRI brain with contrast. 2. No enhancing masses or diffusion abnormalities.
[2023-04-15] MEDS: gadobenate dimeglumine 20 mL vial IV (14:08)
== END 2023-04-15 13:15 | disposition home or self-care (01) ==
LOC: RAD 13:15
PROVIDERS: PCP Family Medicine; Visit Provider Psychiatry & Neurology Neurology
DX: R56.9 Unspecified convulsions (principal)
CPT/HCPCS: 70553; A9577

== ENCOUNTER 2023-07-30 09:14 | Emergency (ER) | payer MEDICAID, SELFPAY ==
[2023-07-30 09:18] VITALS: BP 212/138; PULSE 84; RESP 22; TEMP 37.2; O2SAT 100; BMI 23.7
[2023-07-30 09:46] VITALS: BP 176/130; PULSE 77; RESP 19; O2SAT 100
[2023-07-30] MEDS: sodium chloride 0.9% 1,000 ML 999 ML IV ×2 (10:01→10:47)
[2023-07-30] MEDS: LORazepam 2 mg/mL INJ 1 mL IVP (10:02)
[2023-07-30] MEDS: haloperidol inj 5 mg/mL INJ 1 mL 2.5 MG IVP (10:03)
[2023-07-30 10:05] LABS: Basophils % 0.3 %; Eosinophils # 0.1 10^3/uL (0.0-0.8); Eosinophils % 0.4 %; Hematocrit 51.6 % (37-53); Lymphocytes # 1.8 10^3/uL (0.8-4.8); Lymphocytes % 12.8 %; Mean Corpuscular HGB Conc 34.1 g/dL (30-55); Mean Corpuscular Hemoglobin 27.5 pg (27-33); Mean Corpuscular Volume 80.5 fl (82-101); Mean Platelet Volume 9.7 fL (7.4-10.4); Monocytes # 1.5 10^3/uL (0.2-0.9); Monocytes % 10.8 %; Neutrophils # 10.18 10^3/uL (1.8-7.7); Neutrophils % 74.2 %; Nucleated Red Blood Cells % 0 %; Platelet Count 415 10^3/cmm (157-399); Red Blood Count 6.41 10^6/uL (3.85-5.65); Red Cell Distribution Width 14.4 % (12.1-15.1); White Blood Count 13.73 10^3/uL (3.29-11.43)
[2023-07-30 10:18] LABS: Alanine Aminotransferase 19 U/L (0-41); Albumin Level 5.3 g/dL (3.5-5.2); Alkaline Phosphatase 95 U/L (40-130); Anion Gap 22.5 (5-19); Aspartate Amino Transferase 16 U/L (0-40); Blood Urea Nitrogen 28 mg/dL (6-20); Calcium 10.6 mg/dL (8.5-10.5); Carbon Dioxide 23 mmol/L (22-29); Chloride 92 mmol/L (98-107); Globulin 3.3 g/dL (1.3-4.6); Glomerular Filtration Rate 68.1 mL/min (90-130); Glucose 116 mg/dL (65-115); Lipase 21 U/L (13-60); Osmolality Calculated 284 mOsm/kg (285-295); Potassium 3.5 mmol/L (3.5-5.1); Sodium 134 mmol/L (136-145); Total Bilirubin 1.4 mg/dL (0.15-1.2); Total Protein 8.6 g/dL (6.6-8.7)
--- NOTE | 2023-07-30 10:42 | W.ED.NAVMDI ---
HPI - Nausea/Vomiting/Diarrhea General: Chief complaint: Nausea/Vomiting/Diarrhea Stated complaint: unable to eat and drink, abd pain Time Seen by Provider: 07/30/23 09:54 Source: patient Mode of arrival: ambulatory History of Present Illness: 38-year-old male presents to the emergency room with complaints of nausea and vomiting the last couple of days. He said a lot of abdominal pain cramping with that he has found that sitting in warm bathtub is helpful. He has had this intermittently for the last couple of years related to marijuana use. He states this feels similar to what he had in the past. Associated nausea: Yes Associated symtoms: Reports nausea; Denies bloating, chest pain, dysuria, fatigue or malaise Review of Systems Const: Denies: fever(s), chills, body aches, change in appetite, fatigue or malaise ENMT: Denies: throat pain, ear or mastoid pain, nasal discharge or nasal congestion Card: Denies: chest pain, edema, dyspnea on exertion or orthopnea Resp: Denies: dyspnea, productive cough or non-productive cough GI: Reports: abdominal pain, nausea and vomiting; Denies: hematemesis, coffee ground emesis, diarrhea, constipation, bloating, hematochezia or melena : Denies: flank pain, dysuria, urinary frequency or urinary urgency Skin/Breast: Denies: rash or pruritus PFSH ED PFSH: Medical History Alcohol withdrawal seizure Gastritis Hematochezia Hypertension Surgical History No pertinent past surgical history Family History Mother Seizures Denies family history of CAD (coronary artery disease) Social History Smoking and tobacco status: smoker, details unknown Alcohol intake: current Alcohol intake frequency: 3 or more drinks per day Alcohol type: beer Counseling given: Yes Substance/Drug Use: current Physical Exam Const: GENERAL APPEARANCE: cooperative and comfortable ORIENTATION/CONSCIOUSNESS: Yes awake, Yes oriented to person, Yes oriented to place and Yes oriented to time HENMT: COMMON NORMALS: normocephalic, atraumatic and hearing grossly normal bilaterally HEAD & SCALP: normocephalic and atraumatic Resp: COMMON NORMALS: normal respiratory effort, No retractions, No use of accessory muscles and clear to auscultation bilaterally AUSCULTATION: clear to auscultation bilaterally Cardio: COMMON NORMALS: regular rate, regular rhythm and No murmurs present (Cardio) RATE: regular rate RHYTHM: regular rhythm GI: COMMON NORMALS: Soft to palpation and No hepatosplenomegaly present AUSCULTATION: Yes normoactive bowel sounds PALPATION: Yes Soft to palpation, No Tenderness to palpation present (GI), No Guarding due to palpation present (GI) and Yes No hepatosplenomegaly present Extremity: COMMON NORMALS: normal to inspection, capillary refill normal, no clubbing, cyanosis or edema, no calf tenderness and no pedal edema Neuro: SENSORIUM/ORIENTATION: Yes oriented to person, Yes oriented to place and Yes oriented to time Skin: COMMON NORMALS: no rashes or lesions noted GENERAL SKIN EXAM: no rashes or lesions noted Course Vital Signs: Vital signs: Vital Signs Temperature 98.9 F 07/30/23 09:18 Pulse Rate 70 07/30/23 10:50 Respiratory Rate 15 07/30/23 10:50 Blood Pressure 144/83 07/30/23 10:50 Pulse Oximetry 95 07/30/23 10:50 Oxygen Delivery Me thod Room Air 07/30/23 10:50 MDM - Nausea/Vomiting/Diarrhea Medical Decision Making Patient improved after IV fluids Haldol and Ativan. Will discharge home with olanzapine and buccal Ativan. Encouraged to abstain from marijuana products Medical Records I reviewed the patient's medical records. Lab Data I reviewed the patient's lab results. 07/30/23 09:38 07/30/23 09:38 Laboratory Results WBC 13.73 10^3/uL (3.29-11.43) H 07/30/23 09:38 RBC 6.41 10^6/uL (3.85-5.65) H 07/30/23 09:38 Hgb 17.60 g/dL (11.27-16.99) H 07/30/23 09:38 Hct 51.6 % (37-53) 07/30/23 09:38 MCV 80.5 fl (82-101) L 07/30/23 09:38 MCH 27.5 pg (27-33) 07/30/23 09:38 MCHC 34.1 g/dL (30-55) 07/30/23 09:38 RDW 14.4 % (12.1-15.1) 07/30/23 09:38 Plt Count 415 10^3/cmm (157-399) H 07/30/23 09:38 MPV 9.7 fL (7.4-10.4) 07/30/23 09:38 Neut % (Auto) 74.2 % 07/30/23 09:38 Lymph % (Auto) 12.8 % 07/30/23 09:38 [place] % (Auto) 10.8 % 07/30/23 09:38 Eos % (Auto) 0.4 % 07/30/23 09:38 Baso % (Auto) 0.3 % 07/30/23 09:38 Neut # (Auto) 10.18 10^3/uL (1.8-7.7) H 07/30/23 09:38 Lymph # (Auto) 1.8 10^3/uL (0.8-4.8) 07/30/23 09:38 [place] # (Auto) 1.5 10^3/uL (0.2-0.9) H 07/30/23 09:38 Eos # (Auto) 0.1 10^3/uL (0.0-0.8) 07/30/23 09:38 Baso # (Auto) 0.0 10^3/uL (0.0-0.1) 07/30/23 09:38 Nucleated RBC % (auto) 0 % 07/30/23 09:38 Nucleated RBCs # 0.0 /100WBC 07/30/23 09:38 Sodium 134 mmol/L (136-145) L 07/30/23 09:38 Potassium 3.5 mmol/L (3.5-5.1) 07/30/23 09:38 Chloride 92 mmol/L (98-107) L 07/30/23 09:38 Carbon Dioxide 23 mmol/L (22-29) 07/30/23 09:38 Anion Gap 22.5 (5-19) H 07/30/23 09:38 BUN 28 mg/dL (6-20) H 07/30/23 09:38 Creatinine 1.2 mg/dL (0.7-1.2) 07/30/23 09:38 GFR Calculation 68.1 mL/min (90-130) L 07/30/23 09:38 Glucose 116 mg/dL (65-115) H 07/30/23 09:38 Calculated Osmolality 284 mOsm/kg (285-295) L 07/30/23 09:38 Calcium 10.6 mg/dL (8.5-10.5) H 07/30/23 09:38 Total Bilirubin 1.4 mg/dL (0.15-1.2) H 07/30/23 09:38 AST 16 U/L (0-40) 07/30/23 09:38 ALT 19 U/L (0-41) 07/30/23 09:38 Alkaline Phosphatase 95 U/L (40-130) 07/30/23 09:38 Total Protein 8.6 g/dL (6.6-8.7) 07/30/23 09:38 Albumin 5.3 g/dL (3.5-5.2) H 07/30/23 09:38 Globulin 3.3 g/dL (1.3-4.6) 07/30/23 09:38 Lipase 21 U/L (13-60) 07/30/23 09:38 Discharge Plan Discharge Patient Disposition: Home Clinical Impression: Cannabinoid hyperemesis syndrome Condition: Stable Prescriptions: New olanzapine 10 mg tablet 10 mg PO Q8H PRN (Reason: nausea and vomitting) 3 Days Qty: 10 0RF Ativan 2 mg tablet 2 mg PO Q8H PRN (Reason: nausea and vomiting) Qty: 10 0RF Discontinued ondansetron 4 mg tablet,disintegrating 4 mg PO Q8H PRN (Reason: nausea and vomiting) Qty: 15 0RF No Action levetiracetam [Keppra XR] 750 mg tablet extended release 24 hr 1,500 mg PO DAILY Qty: 180 2RF metoprolol succinate [Toprol XL] 50 mg tablet extended release 24 hr 50 mg PO DAILY Qty: 90 2RF hydroxyzine HCl 10 mg tablet 10 mg PO .QHS PRN (Reason: itching) Qty: 30 3RF citalopram 40 mg tablet 40 mg PO DAILY pantoprazole 40 mg tablet,delayed release (DR/EC) 40 mg PO DAILY Discharge Orders: Discharge ED (Routine); Ordered 07/30/23 Ordered By: Deniz Sanz Referrals: Angel Boston MD [Primary Care Provider] - Discharge Diet: Clear Liquid Discharge Activity: Increase activity as tolerated Patient Instructions: Opioid Safety, Pain Management Activity Restrictions/Additional Instructions: Recommend abstaining from marijuana. Diet for 24 to 48 hours and advance as tolerated use the prescribed medications lorazepam and olanzapine as needed every 8 hours for relief of nausea and vomiting Coding Level of Care Code ED [employer] for [employer]
[2023-07-30 10:50] VITALS: BP 144/83; PULSE 70; RESP 15; O2SAT 95
== END 2023-07-30 11:50 | disposition home or self-care (01) ==
PROVIDERS: Emergency Provider Family Medicine; PCP Family Medicine
DX: R11.2 Nausea with vomiting, unspecified (principal); F12.90 Cannabis use, unspecified, uncomplicated; I10 Essential (primary) hypertension; F17.210 Nicotine dependence, cigarettes, uncomplicated
CPT/HCPCS: 80053; 83690; 85025; 96361; 96374; 96375; 99284; J1630; J2060; J7030

== ENCOUNTER 2023-09-23 10:13 | Observation (INO) | payer MEDICAID, SELFPAY ==
[2023-09-23 10:15] VITALS: BP 163/117; PULSE 100; RESP 16; TEMP 36.6; O2SAT 99; BMI 23.0
--- NOTE | 2023-09-23 11:03 | XRR_ITS ---
PROCEDURE INFORMATION: Exam: XR Abdomen Exam date and time: 09/23/2023 11:12 AM Age: 38 years old Clinical indication: Abdominal pain; Additional info: Abd pain TECHNIQUE: Imaging protocol: Radiologic exam of the abdomen. Views: Frontal supine view of the abdomen. 1 View. COMPARISON: CT abdomen pelvis w con* [id number] 11/10/2022 11:42 PM FINDINGS: Gastrointestinal tract: Bowel gas pattern is unremarkable. No sign of obstruction. Intraperitoneal space: No visible intraperitoneal free air. Bones/joints: Bones are unremarkable. XR/XR abdomen 1V* [id number] IMPRESSION: No acute findings.
--- NOTE | 2023-09-23 11:05 | W.ED.ABDPA2 ---
HPI - Abdominal Pain General: Chief Complaint: Abdominal Pain Stated Complaint: dehydrated Time Seen by Provider: 09/23/23 10:15 History of Present Illness: 38-year-old male presents to the emergency department with complaints of recurrent nausea and vomiting continuing on for the previous 5 days. The patient states that he experiences events like these approximately monthly. He states that usually occurs immediately after he smokes marijuana. He states today he feels like for the previous 2 days he has had significantly decreased urine output and is unable to keep anything down. He states he has 9 out of 10 abdominal cramping. He states that in the past his abdominal pain has been helped by taking hot baths for prolonged period of time. He states he has been told that he has cannabis induced hyperemesis syndrome and feels that this is what is causing his current discomfort. Associated Symptoms: Reports nausea and vomiting Review of Systems General: Reports: 10 or more systems reviewed and unremarkable except in HPI and below Const: Reports: fatigue and malaise GI: Reports: abdominal pain, nausea and vomiting PFSH ED PFSH: Medical History Alcohol withdrawal seizure Gastritis Hematochezia Hypertension Surgical History No pertinent past surgical history Family History Mother Seizures Denies family history of CAD (coronary artery disease) Social History Smoking and tobacco/nicotine status: tobacco/nicotine user, details unknown Alcohol intake: current Alcohol intake frequency: 3 or more drinks per day Alcohol type: beer Substance/Drug Use: current Physical Exam Const: COMMON NORMALS: patient oriented x3 and alert HENMT: COMMON NORMALS: normocephalic; oral mucous membranes not moist HEAD & SCALP: normocephalic MOUTH: moist mucous membranes abnormal Details: parched Eye: COMMON NORMALS: Equal, round and reactive pupils present and EOMs intact bilaterally PUPIL: Yes Equal, round and reactive pupils present Neck/C-Spine: COMMON NORMALS: full ROM, supple and no meningeal signs Resp: COMMON NORMALS: normal respiratory effort and clear to auscultation bilaterally AUSCULTATION: clear to auscultation bilaterally Cardio: COMMON NORMALS: regular rate, regular rhythm, S1 normal heart sound present, S2 normal heart sound present and Peripheral pulses 2+ throughout RATE: regular rate RHYTHM: regular rhythm HEART SOUNDS: S1 normal heart sound present and S2 normal heart sound present PERIPHERAL PULSES: Peripheral pulses 2+ throughout GI: COMMON NORMALS: Normal to inspection, nondistended, normoactive bowel sounds present, Soft to palpation and non-tender PALPATION: Yes Soft to palpation : COMMON NORMALS: Yes no CVA tenderness BLADDER/KIDNEY EXAM: Yes no CVA tenderness Back/Pelvis: COMMON NORMALS: no CVA tenderness and thoracic and lumbar spine normal to inspection Extremity: COMMON NORMALS: normal to inspection, full ROM and capillary refill normal Neuro: COMMON NORMALS: patient oriented x3, CN's II-XII intact bilaterally, moves all extremities and no focal motor deficits SENSORIUM/ORIENTATION: Yes alert MENINGEAL SIGNS: Yes no meningeal signs Psych: COMMON NORMALS: mental status grossly normal, Normal thought process present and cooperative THOUGHT PROCESS: Normal thought process present Skin: COMMON NORMALS: no rashes or lesions noted GENERAL SKIN EXAM: no rashes or lesions noted Course Vital Signs: Vital signs: Vital Signs Temperature 97.8 F 09/23/23 10:15 Pulse Rate 85 09/23/23 11:20 Respiratory Rate 16 09/23/23 11:20 Blood Pressure 173/140 09/23/23 11:20 Pulse Oximetry 99 09/23/23 11:20 Oxygen Delivery Me thod Room Air 09/23/23 10:15 MDM - Abdominal Pain Medical Decision Making Physical exam completed and documented, laboratory evaluation to include CBC and CMP as well as COVID swab, influenza a and B as well as abdominal film. I will provide the patient IV fluid rehydration as well as Haldol for its antiemetic properties. I had extensive discussion with the patient regarding abstinence of marijuana and the long-term side effects of continued cannabis use. Medical Records I reviewed the patient's medical records. Lab Data I reviewed the patient's lab results. 09/23/23 11:05 09/23/23 11:05 Labs/Radiology: Radiology Impressions Abdomen X-Ray 09/23/23 11:03 IMPRESSION: No acute findings. Laboratory Results WBC 16.21 10^3/uL (3.29-11.43) H 09/23/23 11:05 RBC 7.28 10^6/uL (3.85-5.65) H 09/23/23 11:05 Hgb 19.70 g/dL (11.27-16.99) H 09/23/23 11:05 Hct 55.4 % (37-53) H 09/23/23 11:05 MCV 76.1 fl (82-101) L 09/23/23 11:05 MCH 27.1 pg (27-33) 09/23/23 11:05 MCHC 35.6 g/dL (30-55) 09/23/23 11:05 RDW 13.5 % (12.1-15.1) 09/23/23 11:05 Plt Count 451 10^3/cmm (157-399) H 09/23/23 11:05 MPV 9.9 fL (7.4-10.4) 09/23/23 11:05 Neut % (Auto) 79.1 % 09/23/23 11:05 Lymph % (Auto) 8.9 % 09/23/23 11:05 Walton % (Auto) 10.5 % 09/23/23 11:05 Eos % (Auto) 0.1 % 09/23/23 11:05 Baso % (Auto) 0.2 % 09/23/23 11:05 Neut # (Auto) 12.82 10^3/uL (1.8-7.7) H 09/23/23 11:05 Lymph # (Auto) 1.4 10^3/uL (0.8-4.8) 09/23/23 11:05 Walton # (Auto) 1.7 10^3/uL (0.2-0.9) H 09/23/23 11:05 Eos # (Auto) 0.0 10^3/uL (0.0-0.8) 09/23/23 11:05 Baso # (Auto) 0.0 10^3/uL (0.0-0.1) 09/23/23 11:05 Nucleated RBC % (auto) 0 % 09/23/23 11:05 Nucleated RBCs # 0.0 /100WBC 09/23/23 11:05 Sodium 132 mmol/L (136-145) L 09/23/23 11:05 Potassium 3.9 mmol/L (3.5-5.1) 09/23/23 11:05 Chloride 90 mmol/L (98-107) L 09/23/23 11:05 Carbon Dioxide 24 mmol/L (22-29) 09/23/23 11:05 Anion Gap 21.9 (5-19) H 09/23/23 11:05 BUN 63 mg/dL (6-20) H 09/23/23 11:05 Creatinine 2.1 mg/dL (0.7-1.2) H 09/23/23 11:05 GFR Calculation 35.7 mL/min (90-130) L 09/23/23 11:05 Glucose 114 mg/dL (65-115) 09/23/23 11:05 Calculated Osmolality 293 mOsm/kg (285-295) 09/23/23 11:05 Calcium 10.6 mg/dL (8.5-10.5) H 09/23/23 11:05 Total Bilirubin 1.0 mg/dL (0.15-1.2) 09/23/23 11:05 AST 19 U/L (0-40) 09/23/23 11:05 ALT 18 U/L (0-41) 09/23/23 11:05 Alkaline Phosphatase 107 U/L (40-130) 09/23/23 11:05 Total Protein 9.2 g/dL (6.6-8.7) H 09/23/23 11:05 Albumin 5.5 g/dL (3.5-5.2) H 09/23/23 11:05 Globulin 3.7 g/dL (1.3-4.6) 09/23/23 11:05 Lipase 37 U/L (13-60) 09/23/23 11:05 All radiology interpretation(s) finalized by discharge ED provider radiology interpretation(s): XR/XR abdomen 1V* [id number] IMPRESSION: No acute findings. Discharge Plan Discharge Patient Disposition: Admitted As Inpatient Clinical Impression: Cannabis hyperemesis syndrome concurrent with and due to cannabis abuse, Acute kidney injury, Hypertension, Dehydration Condition: Stable Prescriptions: No Action citalopram 40 mg tablet 40 mg PO BEDTIME pantoprazole 40 mg tablet,delayed release (DR/EC) 40 mg PO BEDTIME ibuprofen 200 mg Tablet 400 mg PO Q6H PRN (Reason: Pain) Toprol XL 50 mg tablet extended release 24 hr 50 mg PO QAM hydroxyzine HCl 10 mg tablet 10 mg PO BEDTIME PRN (Reason: itching) Keppra XR 750 mg tablet extended release 24 hr 1,500 mg PO BID Referrals: Angel Boston MD [Primary Care Provider] - Coding Level of Care Code 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
[2023-09-23] MEDS: haloperidol inj 5 mg/mL INJ 1 mL IVP (11:18)
[2023-09-23] MEDS: sodium chloride 0.9% 1,000 ML 999 ML IV (11:18)
[2023-09-23 11:19] LABS: Basophils % 0.2 %; Eosinophils % 0.1 %; Hematocrit 55.4 % (37-53); Lymphocytes # 1.4 10^3/uL (0.8-4.8); Lymphocytes % 8.9 %; Mean Corpuscular HGB Conc 35.6 g/dL (30-55); Mean Corpuscular Hemoglobin 27.1 pg (27-33); Mean Corpuscular Volume 76.1 fl (82-101); Mean Platelet Volume 9.9 fL (7.4-10.4); Monocytes # 1.7 10^3/uL (0.2-0.9); Monocytes % 10.5 %; Neutrophils # 12.82 10^3/uL (1.8-7.7); Neutrophils % 79.1 %; Nucleated Red Blood Cells % 0 %; Platelet Count 451 10^3/cmm (157-399); Red Blood Count 7.28 10^6/uL (3.85-5.65); Red Cell Distribution Width 13.5 % (12.1-15.1); White Blood Count 16.21 10^3/uL (3.29-11.43)
[2023-09-23 11:20] VITALS: BP 173/140; PULSE 85; RESP 16; O2SAT 99
[2023-09-23 11:33] LABS: Alanine Aminotransferase 18 U/L (0-41); Albumin Level 5.5 g/dL (3.5-5.2); Alkaline Phosphatase 107 U/L (40-130); Anion Gap 21.9 (5-19); Aspartate Amino Transferase 19 U/L (0-40); Blood Urea Nitrogen 63 mg/dL (6-20); Calcium 10.6 mg/dL (8.5-10.5); Carbon Dioxide 24 mmol/L (22-29); Chloride 90 mmol/L (98-107); Globulin 3.7 g/dL (1.3-4.6); Glomerular Filtration Rate 35.7 mL/min (90-130); Glucose 114 mg/dL (65-115); Lipase 37 U/L (13-60); Osmolality Calculated 293 mOsm/kg (285-295); Potassium 3.9 mmol/L (3.5-5.1); Sodium 132 mmol/L (136-145); Total Protein 9.2 g/dL (6.6-8.7)
[2023-09-23] MEDS: lactated ringers 1,000 ML 999 ML IV (12:45)
[2023-09-23] MEDS: hyDRALAzine 20 mg/mL INJ 1 mL 10 MG IVP (13:01)
[2023-09-23 13:03] VITALS: BP 198/112; PULSE 79; RESP 16; O2SAT 99
[2023-09-23 13:24] LABS: Rapid Strep A Test Negative (Negative)
[2023-09-23 13:34] LABS: Influenza A by IFA negative (Negative); Influenza B by IFA negative (Negative)
[2023-09-23 13:37] VITALS: BP 168/89; RESP 16; O2SAT 98
[2023-09-23 13:41] LABS: SARS Covid-2 Antigen Negative (Negative)
[2023-09-23 16:55] VITALS: BP 196/92; PULSE 82; RESP 16; TEMP 36.6; O2SAT 98
--- NOTE | 2023-09-23 16:57 | US_ITS ---
WS: [id number] ULTRASOUND RENAL TECHNIQUE: Ultrasound examination of both kidneys. CLINICAL INFORMATION: possible hydronephrosis, obs nephropathy COMPARISON: None. FINDINGS: RIGHT: Right kidney is normal in size and appearance. Echogenicity: Normal. Cortical thickness: 2.0 cm; Normal. Hydronephrosis: None. Perinephric fluid: None. Right kidney measures: 11.4 cm x 5.5 cm x 5.5 cm. LEFT: Left kidney is normal in size and appearance. Echogenicity: Normal. Cortical thickness: 2.0 cm; Normal. Hydronephrosis: None. Perinephric fluid: None. Left kidney measures: 12.4 cm x 4.6 cm x 5.6 cm. Normal visualized aorta. Prevoid bladder volume 215 cc Post void bladder volume 2 c Prostate measures 4.1 x 2.2 x 3.9 cm IMPRESSION: 1. Normal post void bladder. 2. No hydronephrosis in either kidney. 3. Prostate measures 4.1 x 2.2 x 3.9 cm 4. Bilateral ureteral jets
--- NOTE | 2023-09-23 17:00 | PM.HP ---
Providers/Chief Complaint Admitting Physician: Lenin Waldron MD Primary Care Provider: Angel Boston MD Chief Complaint: dehydrated History of Present Illness Pritesh Hlobrook is a 38 year old male with past medical history of hypertension, seizure disorder, cyclic vomiting syndrome mostly exacerbated by cannabis admitted to the hospital with 3 days of nausea and vomiting with inability to keep anything down along with weakness. Denies any abdominal pain, diarrhea. Last marijuana use was around 4 days ago. In the ER patient was found to have acute dehydration along with acute kidney injury in setting of nausea and vomiting for which hospitalist service was consulted. Review of Systems General: Reports: 10 or more systems reviewed and unremarkable except in HPI and below Const: Denies: fever(s), chills, body aches, change in appetite, change in weight, malaise, night sweats, diaphoresis, change in sleep pattern, daytime sleepiness or snoring Eyes: Denies: change in vision, blurry vision, photophobia, eye discomfort or eye discharge ENMT: Denies: throat pain, enlarged tonsils, hoarseness, mouth pain, oral sores, dry mouth, tinnitus, nasal congestion or post nasal drip Card: Denies: chest pain, palpitations, irregular heart rhythm, edema, swelling of feet/ankles, lightheadedness, syncope, pre-syncope, dyspnea on exertion, orthopnea, leg pain with exertion or acrocyanosis Resp: Denies: dyspnea, productive cough, non-productive cough, wheezing, stridor, pain on inspiration, change in phlegm color, hemoptysis or chest congestion GI: Denies: abdominal pain, nausea, vomiting, hematemesis, coffee ground emesis, dysphagia, heartburn, diarrhea, constipation, bloating, GI cramping, change in bowel habits, pain on defecation, hematochezia or melena : Denies: flank pain, difficulty urinating, dysuria, urinary frequency, urinary urgency, urinary hesitancy, urinary dribbling, difficulty starting urination, change in urine stream, nocturia or hematuria Musc: Denies: neck pain, back pain, extremity pain, joint pain, joint swelling, joint redness, joint stiffness or limited range of motion Neuro: Denies: headache(s), numbness in extremities, weakness in extremities, sensory changes, lack of coordination, difficulty walking, frequent falls, dizziness, vertigo, confusion, Slurred speech present, difficulty communicating thoughts or seizure-like activity Psych: Denies: anxiety, depression, mood swings, panic attacks, hopelessness or irritability Endo: Denies: polyuria, polydipsia, tired all the time, cold intolerance, excessive sweating, flushing or heat intolerance Izaiah/Lymph: Denies: easy bruising or easy bleeding All/Imm: Denies: tongue swelling, facial swelling or acute wheezing Medications/Allergies Home Medications Medication Instructions Recorded Confirmed Last Taken Type citalopram 40 mg tablet 40 mg PO BEDTIME 07/30/23 09/23/23 09/22/23 History pantoprazole 40 mg tablet,delayed 40 mg PO BEDTIME 07/30/23 09/23/23 09/22/23 History release hydroxyzine HCl 10 mg tablet 10 mg PO BEDTIME PRN itching 09/23/23 09/23/23 Unknown History ibuprofen 200 mg tablet 400 mg PO Q6H PRN Pain 09/23/23 09/23/23 09/22/23 History levetiracetam 750 mg 1,500 mg PO BID 09/23/23 09/23/23 09/23/23 History tablet,extended release 24 hr (Keppra XR) metoprolol succinate 50 mg 50 mg PO QAM 09/23/23 09/23/23 09/23/23 History tablet,extended release 24 hr (Toprol XL) Allergies Allergy/AdvReac Type Severity Reaction Status Date / Time No Known Allergies Allergy Verified 09/23/23 10:59 PFSH Acute PFSH: Medical History (Updated 09/23/23 @ 17:04 by Lenin Waldron MD) Alcohol withdrawal seizure Gastritis Hematochezia Hypertension Nocturnal seizures Surgical History No pertinent past surgical history Family History Mother Seizures Denies family history of CAD (coronary artery disease) Social History Smoking and tobacco/nicotine status: tobacco/nicotine user, details unknown Alcohol intake: current Alcohol intake frequency: 3 or more drinks per day Alcohol type: beer Substance/Drug Use: current Vitals/I&O/Wt Last Vital Signs Temp 97.8 F 09/23/23 10:15 Pulse 79 09/23/23 13:03 Resp 16 09/23/23 13:37 BP 168/89 09/23/23 13:37 Pulse Ox 98 09/23/23 13:37 O2 Del Method Room Air 09/23/23 13:52 09/23/23 09/23/23 09/23/23 06:59 14:59 22:59 Intake Total 1999 Balance 1999 Weight last 48 hrs Weight 77.111 kg Physical Exam Narrative: General: No acute distress, AO x3 HEENT: PERRLA, pupils bilaterally equal and reactive Chest: Normal vesicular breath sounds, no added sounds, equal good air entry bilaterally CVS: S1-S2 regular, no murmurs, no tachycardia, no gallops, no rubs Abdomen: Soft, nontender, no organomegaly, bowel sounds present Neuro: No focal deficits, no facial deformity, AO x3, power 5/5 in all limbs Data 09/24/23 05:21 09/24/23 05:21 A&P Assessment and plan (1) Intractable nausea and vomiting: Most likely in setting of cannabis use. Cannot Rule out alcohol induced gastritis. Clear liquid diet Protonix IV daily, Zofran and promethazine as needed. IV fluids with normal saline at 75 cc/h. (2) Acute kidney injury: Most likely in setting of acute dehydration from nausea and vomiting. Check renal ultrasound to rule out obstructive nephropathy. Check urine lites, urine creatinine, urine lites. Input output charting, daily weights. IV fluids as above. Continue to monitor BMP daily. Does have uremia. Mild metabolic acidosis. (3) Hypertension: Uncontrolled on presentation to the ER. Requiring IV hydralazine. Goal blood pressure less than 140/90 mmHg. Continue with home dose of metoprolol tartrate 50 mg twice daily. Add amlodipine 10 mg oral daily. Will uptitrate as for goal blood pressures. 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 Check Keppra levels. Continue with home dose of Keppra 1500 mg oral twice daily. (6) Uncontrolled hypertension: (7) Leukocytosis: Most likely in setting of dehydration. Continue with IV fluids as above. Continue to monitor daily. Hold off on any antibiotics for now. (8) Polycythemia: Insetting of dehydration. Monitor daily. Plan Full code Clear liquid diet Heparin 5000 every 8 hourly for DVT prophylaxis Protonix for PUD prophylaxis. 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
[2023-09-23] MEDS: amlodipine 10 mg Tablet PO (17:48)
[2023-09-23] MEDS: sodium chloride 0.9% 1,000 ML 75 ML IV (17:48)
[2023-09-23] MEDS: heparin 5,000 unit/mL INJ 1 mL 5000 UNIT SUBCUT (17:49)
[2023-09-23 18:03] LABS: Iron 171 ug/dL (59-158); Percent Saturation 33.2 % (20-50); Thyroid Stimulating Hormone 0.74 uIU/mL (0.27-4.20); Total Iron Binding Capacity 514 mcg/dl; Unsaturated Iron Binding 343 ug/dL (112-347); Vitamin B12 814 pg/mL (232-1245)
[2023-09-23 18:16] LABS: Alcohol Level < 10 mg/dL (0-10)
[2023-09-23 20:00] VITALS: BP 165/87; PULSE 71; RESP 17; TEMP 36.4; O2SAT 98
[2023-09-23] MEDS: citalopram 20 mg Tablet 40 MG PO (20:30)
[2023-09-23] MEDS: metoprolol tartrate 50 mg Tablet PO (20:30)
[2023-09-24] VITALS (8 sets, daily range): BP systolic 129–185; BP diastolic 74–100; PULSE 55–79; RESP 17–18; TEMP 36.4–36.7; O2SAT 97–99
[2023-09-24] MEDS: heparin 5,000 unit/mL INJ 1 mL 5000 UNIT SUBCUT ×2 (01:43→10:00)
[2023-09-24 05:28] LABS: Basophils % 0.3 %; Eosinophils % 0.3 %; Hematocrit 47.1 % (37-53); Lymphocytes # 1.8 10^3/uL (0.8-4.8); Lymphocytes % 14.9 %; Mean Corpuscular HGB Conc 33.3 g/dL (30-55); Mean Corpuscular Hemoglobin 26.6 pg (27-33); Mean Corpuscular Volume 79.8 fl (82-101); Mean Platelet Volume 9.5 fL (7.4-10.4); Monocytes # 1.5 10^3/uL (0.2-0.9); Monocytes % 12.6 %; Neutrophils # 8.46 10^3/uL (1.8-7.7); Neutrophils % 70.8 %; Nucleated Red Blood Cells % 0 %; Platelet Count 308 10^3/cmm (157-399); Red Cell Distribution Width 13.3 % (12.1-15.1); White Blood Count 11.96 10^3/uL (3.29-11.43)
[2023-09-24 05:55] LABS: Alanine Aminotransferase 60 U/L (0-41); Albumin Level 4.5 g/dL (3.5-5.2); Alkaline Phosphatase 82 U/L (40-130); Anion Gap 12.8 (5-19); Aspartate Amino Transferase 55 U/L (0-40); Blood Urea Nitrogen 36 mg/dL (6-20); Calcium 9.3 mg/dL (8.5-10.5); Carbon Dioxide 27 mmol/L (22-29); Chloride 99 mmol/L (98-107); Globulin 2.7 g/dL (1.3-4.6); Glomerular Filtration Rate 68.1 mL/min (90-130); Glucose 91 mg/dL (65-115); Magnesium 2.7 mg/dL (1.7-2.3); Osmolality Calculated 288 mOsm/kg (285-295); Phosphorus 2.6 mg/dL (2.5-4.5); Potassium 3.8 mmol/L (3.5-5.1); Sodium 135 mmol/L (136-145); Total Protein 7.2 g/dL (6.6-8.7)
[2023-09-24 05:57] LABS: Cholesterol 155 mg/dL (0-200); HDL Cholesterol 31 mg/dL (60-100); LDL Cholesterol Calculated 82 mg/dL (50-129); LDL HDL Ratio 2.65 RATIO (0.00-3.22); Triglycerides 209 mg/dL (0-150)
[2023-09-24 06:12] LABS: Folate Level 12.8 ng/mL (4.5-32.2)
[2023-09-24 06:29] LABS: Estmated Average Glucose 100; Hemoglobin A1C 5.1 % (4.0-6.0)
[2023-09-24] MEDS: pantoprazole 40 mg SDV IVP (08:08)
[2023-09-24] MEDS: metoprolol tartrate 50 mg Tablet PO (08:08)
[2023-09-24] MEDS: amlodipine 10 mg Tablet PO (08:08)
[2023-09-24] MEDS: sodium chloride 0.9% 1,000 ML 75 ML IV (08:09)
--- NOTE | 2023-09-24 09:04 | PC.CHAP ---
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 [] Patient/Family/Request visit [] Outpatient visit [] Follow-up visit [] Physician referral [] Code/Alert [x] Routine visit [] Staff referral [] Actively dying [] Patient sleeping [] Family support [] [] Out of room [] Palliative care [] [] Receiving care in room [] Pre-surgical visit [] Trauma [] Long length of stay [] ICU visit [] Other: Relational/Emotional Strength [x] Patient feels connected with others/family/visitors/staff [] Distress [] Loneliness/isolation [] Abandonment Spirituality of Patient [x] Person of Belia [] Attends Sabianism of their Belia [x] Believes in Prayer [] Reads Bible or Jehovah'S Witness materials [] There are Spiritual issues to be addressed Audio Director Interventions [x] Prayer [x] Active listening [] Non-anxious presence [x] Spiritual/emotional support [] Crisis/trauma care [] Spiritual counseling [] Bereavement support [] Provided bereavement packet [] Provided Bible/devotional materials [] Provided toy/stuffed animal, coloring book to patient or family member [] Provided Communion [] Anointing/[place] [] Salvation [x] Completed spiritual assessment [] Other: Impact on Illness or Injury [] Angry [] Fearful [] Anxious [] Often cries [] Exhaustion [] Unable to work [] Unable to attend tenriism [] Unable to walk/stand [] Unable to read [] Unable to drive [] Unable to eat/drink [] Unable to sleep [] Unable to be with family [] Patient intubated [] Other: Summary Time spent with patient 5 min
[2023-09-24 11:02] LABS: Add Urine Microscopic? NO; Charge for UA Resulting for Rev
[2023-09-24] MEDS: cloNIDine 0.1 mg Tablet PO (11:04)
[2023-09-24 11:30] LABS: Amphetamines Screen Urine Negative (Negative); Barbiturates Screen Urine Negative (Negative); Benzodiazepines Screen Urine Negative (Negative); Cocaine Screen Urine Negative (Negative); Opiate Screen Urine Negative (Negative); PCP Screen Urine Negative (Negative); THC Screen Urine Positive (Negative)
[2023-09-24 11:34] LABS: Bilirubin Urine Neg (Negative); Blood Urine Neg (Negative); Glucose Urine UA 2+ (Normal); Ketones Urine Negative (Negative); Leukocyte Esterase Urine Negative (Negative); Nitrate Urine Negative (Negative); Protein Urine Neg (Negative); Specific Gravity, Urine 1.005 (1.005-1.030); Urine Appearance Clear (CLEAR); Urine Color Yellow (Yellow); Urobilinogen Urine 1 mg/dL (Negative); pH Urine 7 (5-7)
[2023-09-24 11:44] LABS: Potassium, Radom Urine 35 mmol/L; Urine Creatinine 138 mg/dL (39-259); Urine Random Chloride 24 mmol/L; Urine Random Sodium 60 mmol/L
[2023-09-24 12:04] LABS: Eosinophil Urine No Eosinophils Seen; Urine Eosinophil Count 0 (0-0)
--- NOTE | 2023-09-24 14:56 | PM.DCS ---
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 Denies any abdominal pain, diarrhea.? Last marijuana use was around 4 days ago. In the ER patient was found to have acute dehydration along with acute kidney injury in setting of nausea and vomiting for which hospitalist service was consulted. Hospital Course Hospital Course Patient was admitted to the hospital further evaluation and management of acute dehydration in setting of persistent nausea and vomiting leading to acute kidney injury with creatinine of 2.1. He was started conservative treatment with bowel rest, aggressive IV hydration. On admission he was also found to have hypertensive urgency for which his home antihypertensives were adjusted. Patient showed drastic improvement with normalization of his kidney functions. Patient has tolerated clear liquid diet well. His blood pressures also responded to the treatment and are below the target of 140/90. He has been discharged in medically stable condition with advised to continue with clear liquid diet for next 3 days and then to advance to his regular diet within next 1 week. He is advised to be off marijuana as much as possible. He is to check his blood pressure daily at home and maintain a blood pressure diary and follow-up with a primary care provider within next 10 days for further adjustment of antihypertensives. He is to maintain his oral hydration with more than 2 L of liquid daily. He is to have repeat BMP done with his primary care provider in 10 days. Physical Exam Narrative: General: No acute distress, AO x3 HEENT: PERRLA, pupils bilaterally equal and reactive Chest: Normal vesicular breath sounds, no added sounds, equal good air entry bilaterally CVS: S1-S2 regular, no murmurs, no tachycardia, no gallops, no rubs Abdomen: Soft, nontender, no organomegaly, bowel sounds present Neuro: No focal deficits, no facial deformity, AO x3, power 5/5 in all limbs Discharge Data Studies Completed and Pending Completed Studies During Hospitalization Category Date Time Status XR abdomen 1V* [id number] Stat Exams 09/23/23 11:03 Completed US renal BI with PV bladder Routine Ultrasound 09/23/23 16:57 Completed Pending at discharge Category Date Time Status Streptococcus Culture Group A Stat Lab 09/23/23 13:05 Received Radiology Impressions Abdomen X-Ray 09/23/23 11:03 IMPRESSION: No acute findings. Laboratory Results WBC 11.96 10^3/uL (3.29-11.43) H 09/24/23 05:21 RBC 5.90 10^6/uL (3.85-5.65) H 09/24/23 05:21 Hgb 15.70 g/dL (11.27-16.99) 09/24/23 05:21 Hct 47.1 % (37-53) 09/24/23 05:21 MCV 79.8 fl (82-101) L 09/24/23 05:21 MCH 26.6 pg (27-33) L 09/24/23 05:21 MCHC 33.3 g/dL (30-55) D 09/24/23 05:21 RDW 13.3 % (12.1-15.1) 09/24/23 05:21 Plt Count 308 10^3/cmm (157-399) D 09/24/23 05:21 MPV 9.5 fL (7.4-10.4) 09/24/23 05:21 Neut % (Auto) 70.8 % 09/24/23 05:21 Lymph % (Auto) 14.9 % 09/24/23 05:21 [place] % (Auto) 12.6 % 09/24/23 05:21 Eos % (Auto) 0.3 % 09/24/23 05:21 Baso % (Auto) 0.3 % 09/24/23 05:21 Neut # (Auto) 8.46 10^3/uL (1.8-7.7) H 09/24/23 05:21 Lymph # (Auto) 1.8 10^3/uL (0.8-4.8) 09/24/23 05:21 [place] # (Auto) 1.5 10^3/uL (0.2-0.9) H 09/24/23 05:21 Eos # (Auto) 0.0 10^3/uL (0.0-0.8) 09/24/23 05:21 Baso # (Auto) 0.0 10^3/uL (0.0-0.1) 09/24/23 05:21 Nucleated RBC % (auto) 0 % 09/24/23 05:21 Nucleated RBCs # 0.0 /100WBC 09/24/23 05:21 Sodium 135 mmol/L (136-145) L 09/24/23 05:21 Potassium 3.8 mmol/L (3.5-5.1) 09/24/23 05:21 Chloride 99 mmol/L (98-107) 09/24/23 05:21 Carbon Dioxide 27 mmol/L (22-29) 09/24/23 05:21 Anion Gap 12.8 (5-19) 09/24/23 05:21 BUN 36 mg/dL (6-20) H 09/24/23 05:21 Creatinine 1.2 mg/dL (0.7-1.2) 09/24/23 05:21 GFR Calculation 68.1 mL/min (90-130) L 09/24/23 05:21 Glucose 91 mg/dL (65-115) 09/24/23 05:21 Estimat Average Glucose 100 09/24/23 05:21 Hemoglobin A1c 5.1 % (4.0-6.0) 09/24/23 05:21 Calculated Osmolality 288 mOsm/kg (285-295) 09/24/23 05:21 Calcium 9.3 mg/dL (8.5-10.5) 09/24/23 05:21 Phosphorus 2.6 mg/dL (2.5-4.5) 09/24/23 05:21 Magnesium 2.7 mg/dL (1.7-2.3) H 09/24/23 05:21 Iron 171 ug/dL (59-158) H 09/23/23 11:05 TIBC 514 mcg/dl 09/23/23 11:05 % Saturation 33.2 % (20-50) 09/23/23 11:05 Unsat Iron Binding 343 ug/dL (112-347) 09/23/23 11:05 Total Bilirubin 1.0 mg/dL (0.15-1.2) 09/24/23 05:21 AST 55 U/L (0-40) H 09/24/23 05:21 ALT 60 U/L (0-41) H 09/24/23 05:21 Alkaline Phosphatase 82 U/L (40-130) 09/24/23 05:21 Total Protein 7.2 g/dL (6.6-8.7) D 09/24/23 05:21 Albumin 4.5 g/dL (3.5-5.2) 09/24/23 05:21 Globulin 2.7 g/dL (1.3-4.6) 09/24/23 05:21 Triglycerides 209 mg/dL (0-150) H 09/24/23 05:21 Cholesterol 155 mg/dL (0-200) 09/24/23 05:21 LDL Cholesterol, Calc 82 mg/dL (50-129) 09/24/23 05:21 HDL Cholesterol 31 mg/dL (60-100) L 09/24/23 05:21 LDL/HDL Ratio 2.65 RATIO (0.00-3.22) 09/24/23 05:21 Cholesterol/HDL Ratio 5.00 mg/dL (1.0-5.00) 09/24/23 05:21 Lipase 37 U/L (13-60) 09/23/23 11:05 Vitamin B12 814 pg/mL (232-1245) 09/23/23 11:05 Folate 12.8 ng/mL (4.5-32.2) 09/24/23 05:21 TSH 0.74 uIU/mL (0.27-4.20) 09/23/23 11:05 Urine Color Yellow (Yellow) 09/24/23 10:50 Urine Appearance Clear (CLEAR) 09/24/23 10:50 Urine pH 7 (5-7) 09/24/23 10:50 Ur Specific [place] 1.005 (1.005-1.030) 09/24/23 10:50 Urine Protein Neg (Negative) 09/24/23 10:50 Urine Glucose (UA) 2+ (Normal) H 09/24/23 10:50 Urine Ketones Negative (Negative) 09/24/23 10:50 Urine Blood Neg (Negative) 09/24/23 10:50 Urine Nitrate Negative (Negative) 09/24/23 10:50 Urine Bilirubin Neg (Negative) 09/24/23 10:50 Urine Urobilinogen 1 mg/dL (Negative) H 09/24/23 10:50 Ur Leukocyte Esterase Negative (Negative) 09/24/23 10:50 Ur Eosinophil Smear 0 (0-0) 09/24/23 10:50 Urine Eosinophils No eosinophils seen 09/24/23 10:50 Ur Random Sodium 60 mmol/L 09/24/23 10:50 Ur Random Potassium 35 mmol/L 09/24/23 10:50 Ur Random Chloride 24 mmol/L 09/24/23 10:50 Urine Creatinine 138 mg/dL (39-259) 09/24/23 10:50 Urine Opiates Screen Negative ng/mL (Negative) 09/24/23 10:50 Ur Barbiturates Screen Negative ng/mL (Negative) 09/24/23 10:50 Ur Phencyclidine Scrn Negative ng/mL (Negative) 09/24/23 10:50 Ur Amphetamines Screen Negative ng/mL (Negative) 09/24/23 10:50 U Benzodiazepines Scrn Negative ng/mL (Negative) 09/24/23 10:50 Urine Cocaine Screen Negative ng/mL (Negative) 09/24/23 10:50 U Marijuana (THC) Screen Positive ng/mL (Negative) H 09/24/23 10:50 Ethyl Alcohol < 10 mg/dL (0-10) 09/23/23 11:05 Influenza Type A Ag negative (Negative) 09/23/23 13:05 Influenza Type B Ag negative (Negative) 09/23/23 13:05 SARS-CoV-2 Ag (Rapid) Negative (Negative) 09/23/23 13:05 Group A Strep Rapid Negative (Negative) 09/23/23 13:05 Vitals Last Vital Signs Temp 98.1 F 09/24/23 11:07 Pulse 61 09/24/23 11:07 Resp 18 09/24/23 11:07 BP 137/75 09/24/23 11:07 Pulse Ox 97 09/24/23 11:07 O2 Del Method Room Air 09/24/23 11:07 Discharge Plan Discharge Patient Disposition: Home Condition: Stable Prescriptions: New amlodipine 10 mg Tablet 10 mg PO DAILY Qty: 30 0RF ondansetron 4 mg tablet,disintegrating 4 mg PO Q8H PRN (Reason: nausea and vomiting) 4 Days Qty: 14 0RF clonidine HCl 0.1 mg Tablet 0.1 mg PO BID Qty: 60 0RF Continued citalopram 40 mg tablet 40 mg PO BEDTIME pantoprazole 40 mg tablet,delayed release (DR/EC) 40 mg PO BEDTIME ibuprofen 200 mg Tablet 400 mg PO Q6H PRN (Reason: Pain) Toprol XL 50 mg tablet extended release 24 hr 50 mg PO QAM hydroxyzine HCl 10 mg tablet 10 mg PO BEDTIME PRN (Reason: itching) Keppra XR 750 mg tablet extended release 24 hr 1,500 mg PO BID Discharge Orders: Discharge Order (Routine); Ordered 09/24/23 Ordered By: Lenin Waldron Referrals: Angel Boston MD [Primary Care Provider] - 7-10 days Discharge Diet: Advance as tolerated, Usual diet and Clear Liquid Discharge Activity: Resume usual activity and Increase activity as tolerated Patient Instructions: Opioid Safety Activity Restrictions/Additional Instructions: He is counseled in detail to take clear liquid diet for next 3 days and then to advance to his regular diet within next 1 week. He is advised to be off marijuana as much as possible. He is to check his blood pressure daily at home and maintain a blood pressure diary and follow-up with a primary care provider within next 10 days for further adjustment of antihypertensives. He is to maintain his oral hydration with more than 2 L of liquid daily. He is to have repeat BMP done with his primary care provider in 10 days Discharge Attestations Time Spent in Discharge Care*: greater than 30 min Specific Discharge Activities: educating patient, discussing with pcp/other providers, discussing with case management coordinator/social workers/dc planners, documenting/other paperwork and evaluating patient/reviewing data Time Spent in Smoking Cessation: more than 10 minutes Status at Discharge: Cognitive status at discharge: cognitively intact, Behavioral status at discharge: cooperative, Functional status at discharge: independent ambulation, Overall status at discharge: patient is back to baseline Quality Metrics Clinical Quality Measures [ No reported AMI, CVA or VTE this stay] Coding Level of Care Code 88160 Total time (in minutes) for Discharge: 40 Diagnoses Intractable nausea and vomiting R11.2 Acute kidney injury N17.9 Hypertension I10 Dehydration E86.0 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
== END 2023-09-24 16:11 | disposition home or self-care (01) ==
LOC: ER 12:50 → MEDSURG 15:09
PROVIDERS: Admitting Provider Student in an Organized Health Care Education/Training Program; Emergency Provider Internal Medicine; PCP Family Medicine; Visit Provider Student in an Organized Health Care Education/Training Program
DX: R11.2 Nausea with vomiting, unspecified (principal); F12.188 Cannabis abuse with other cannabis-induced disorder; N17.9 Acute kidney failure, unspecified; I10 Essential (primary) hypertension; D72.829 Elevated white blood cell count, unspecified; D75.1 Secondary polycythemia; E86.0 Dehydration; G40.219 Localization-related (focal) (partial) symptomatic epilepsy and epileptic syndromes with complex partial seizures, intractable, without status epilepticus; I16.0 Hypertensive urgency
CPT/HCPCS: 36415; 74018; 76770; 76857; 80053; 80061; 80306; 80307; 81003; 82436; 82570; 82607; 82746; 83036; 83540; 83550; 83690; 83735; 84100; 84133; 84300; 84443; 85025; 85999; 87081; 87426; 87804; 87880; 94664; 96361; 96372; 96374; 96375; 99285; C9113; G0378; J0360; J1630; J1644; J7030; J7120

== ENCOUNTER 2025-02-12 20:33 | Emergency (ER) | payer MEDICAID, SELFPAY ==
[2025-02-12 20:46] VITALS: BP 138/81; PULSE 61; TEMP 36.4; O2SAT 99; BMI 26.4
--- NOTE | 2025-02-12 21:59 | ED_ITS ---
HPI - Wound/Laceration General: Chief Complaint: Wound/Laceration Stated Complaint: R ear lac Time Seen by Provider: 02/12/25 21:01 Source: patient Mode of arrival: ambulatory Limitations: no limitations History of Present Illness: 39-year-old male states he is in a [employer] a ccident and struck his right ear. Does have a laceration to the right earlobe he denies any pain currently he states he had no loss conscious denies any head or neck pain no other injuries noted. Associated symptoms: Denies chills, fever(s), nausea or vomiting Related Data Home Medications ?Medication ?Instructions ?Recorded ?Confirmed pantoprazole 40 mg tablet,delayed 40 mg PO BEDTIME 07/1410/19/23 release hydroxyzine HCl 10 mg tablet 10 mg PO BEDTIME PRN itch ing 09/23/23 10/19/23 ibuprofen 200 mg tablet 400 mg PO Q6H PRN Pain 09/2310/19/23 Previous Rx's ?Medication ?Instructions ?Recorded amlodipine 10 mg tablet 10 mg PO DAILY #30 tabs 02/11 clonidine HCl 0.1 mg tablet 0.1 mg PO BID #60 tabs 02/11 metoprolol succinate 50 mg See Rx Instructions .Route 02/16/24 tablet,extended release 24 hr .COMPLEX #90 tabs levetiracetam 750 mg See Rx Instructions .Route 0 01/08/25 tablet,extended release 24 hr .COMPLEX #120 tabs citalopram 40 mg tablet See Rx Instructions .Route 0 01/22/25 .COMPLEX #30 tabs Allergies Allergy/AdvReac Type Severity Reaction Status Date / Time No Known Allergies Allergy Verified 02/12/25 20:50 Review of Systems Const: Denies: fever(s), chills, body aches or change in appetite Eyes: Denies: blurry vision or eye discomfort ENMT: Denies: throat pain or dental pain Card: Denies: chest pain Resp: Denies: dyspnea GI: Denies: abdominal pain, nausea, vomiting or diarrhea Musc: Denies: neck pain or back pain Skin/Breast: Denies: rash Neuro: Denies: headache(s) PFS ED PFSH: Medical History 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 Nocturnal seizures Alcohol withdrawal seizure Hypertension Hematochezia Gastritis Surgical History No pertinent past surgical history Family History Mother Seizures Denies family history of CAD (coronary artery disease) Social History Smoking and tobacco/nicotine status: tobacco/nicotine user, details unknown Alcohol intake: current Alcohol intake frequency: 3 or more drinks per day Alcohol type: beer Substance/Drug Use: current Physical Exam Const: COMMON NORMALS: no acute distress, patient oriented x3 and healthy appearing HENMT: COMMON NORMALS: normocephalic and atraumatic HEAD & SCALP: normocephalic and atraumatic OTHER: 3 cm laceration to right earlobe Eye: COMMON NORMALS: conjunctivae normal CONJUNCTIVA: Yes conjunctivae normal Neck/C-Spine: COMMON NORMALS: full ROM and supple Chest: COMMONS NORMALS: normal inspection of the chest Resp: COMMON NORMALS: normal respiratory effort, No retractions, No use of accessory muscles and clear to auscultation bilaterally AUSCULTATION: clear to auscultation bilaterally Cardio: COMMON NORMALS: regular rate RATE: regular rate Extremity: COMMON NORMALS: normal to inspection and full ROM Neuro: COMMON NORMALS: patient oriented x3, moves all extremities and no focal motor deficits Psych: COMMON NORMALS: mental status grossly normal, Normal thought process present and cooperative THOUGHT PROCESS: Normal thought process present Skin: COMMON NORMALS: no rashes or lesions noted GENERAL SKIN EXAM: no rashes or lesions noted Procedures Laceration Laceration 1: Site: other (ear) Side (If applicable): right Size (cm): 4 Description: linear Depth: simple, single layer Local Anesthetic: lidocaine 1% Amount of anesthesia used (mL): 6 Pre-repair: wound explored and irrigated extensively Skin layer closed with: nylon Size (cm): 5-0 Number of sutures: 7 Technique: simple, interrupted Course Vital Signs: Vital signs: Vital Signs Temperature 97.5 F L 02/12/25 20:46 Pulse Rate 61 02/12/25 20:46 Blood Pressure 138/81 02/12/25 20:46 Pulse Oximetry 99 02/12/25 20:46 Oxygen Delivery Me thod Room Air 02/12/25 20:46 MDM - Wound/Laceration Medical Decision Making Patient presents here with a laceration did repair the laceration he is stable for discharge wound was very clean will update his tetanus he is to follow-up with his PCP in 10 days for suture removal. Medical Records I reviewed the patient's medical records. No radiology studies performed this visit Discharge Plan Discharge Patient Disposition: Home Clinical Impression: Laceration of right ear lobe Qualifiers: Encounter type: initial encounter Qualified Code(s): S01.311A - Laceration without foreign body of right ear, initial encounter Condition: Stable Prescriptions: No Action metoprolol succinate 50 mg tablet extended release 24 hr See Rx Instructions .ROUTE .COMPLEX Qty: 90 3RF Dose Instruction: Take 1 tablet by mouth once daily Rx Instructions: Take 1 tablet by mouth once daily levetiracetam 750 mg tablet extended release 24 hr See Rx Instructions .ROUTE .COMPLEX Qty: 120 0RF Dose Instruction: TAKE 2 TABLETS BY MOUTH IN THE MORNING AND 2 TABLETS AT NIGHT Rx Instructions: TAKE 2 TABLETS BY MOUTH IN THE MORNING AND 2 TABLETS AT NIGHT citalopram 40 mg tablet See Rx Instructions .ROUTE .COMPLEX Qty: 30 6RF Dose Instruction: Take 1 tablet by mouth once daily Rx Instructions: Take 1 tablet by mouth once daily pantoprazole 40 mg tablet,delayed release (DR/EC) 40 mg PO BEDTIME ibuprofen 200 mg Tablet 400 mg PO Q6H PRN (Reason: Pain) hydroxyzine HCl 10 mg tablet 10 mg PO BEDTIME PRN (Reason: itching) clonidine HCl 0.1 mg Tablet 0.1 mg PO BID Qty: 60 0RF amlodipine 10 mg Tablet 10 mg PO DAILY Qty: 30 0RF Discharge Orders: Discharge ED (Routine); Ordered 02/12/25 Ordered By: Claire Sagastume Referrals: Angel Boston MD [Primary Care Provider] - 7-10 days Discharge Diet: Advance as tolerated Discharge Activity: Resume usual activity Patient Instructions: Care For Your Stitches (ED), Laceration (ED) Activity Restrictions/Additional Instructions: suture removal in 10 days Print Language: Angolan Coding Level of Care Code ED Dermatology Technician for [facility]ak[facility]
[2025-02-12 22:00] VITALS: BP 138/81; PULSE 61; RESP 18; O2SAT 99
[2025-02-12] MEDS: lidocaine 1% 10 ML INJ SUBCUT (22:06)
--- NOTE | 2025-02-12 22:17 | PC.NURSE ---
The laceration on the pts right ear was flushed with 100ml of NS at this time
[2025-02-12 22:34] VITALS: BP 129/79; PULSE 66; O2SAT 99
== END 2025-02-12 22:35 | disposition home or self-care (01) ==
PROVIDERS: Emergency Provider Emergency Medicine; PCP Family Medicine
DX: S01.311A Laceration without foreign body of right ear, initial encounter (principal); I10 Essential (primary) hypertension; V86.55XA Driver of 3- or 4- wheeled all-terrain vehicle (ATV) injured in nontraffic accident, initial encounter
CPT/HCPCS: 12013; 99283; J9999